=== PATIENT | male | born 1965 | race Caucasian/White ===

== ENCOUNTER 2023-09-22 17:20 | Emergency (ER) | payer OTHER, SELFPAY ==
[2023-09-22 17:25] VITALS: BP 151/79; PULSE 85; RESP 20; TEMP 37.1; O2SAT 95; BMI 45.0
== END 2023-09-22 20:25 | disposition left against medical advice (07) ==
PROVIDERS: PCP Family Medicine
DX: Z53.21 Procedure and treatment not carried out due to patient leaving prior to being seen by health care provider (principal)

== ENCOUNTER 2024-03-02 02:20 | Emergency (ER) | payer BC, SELFPAY ==
[2024-03-02] VITALS (25 sets, daily range): BP systolic 108–143; BP diastolic 65–86; PULSE 68–106; RESP 12–20; TEMP 36.5; O2SAT 92–99
--- NOTE | 2024-03-02 02:26 | ED.GENADULT ---
HPI - General Adult General Chief complaint: Arrhythmia/Palpitations Stated complaint: A-fib Time Seen by Provider: 03/02/24 02:26 History of Present Illness HPI narrative: Pt arrives with son for evaluation of Atrial Fibrillation that woke him from his sleep ~0140. Patient states that it woke him up out of his sleep. He states that he could feel his heart beat fast, have an addition beat and then slow down. Hx of Afib, not on blood thinners, in the past he has been cardioverted. Denies any chest pain and notes some mild SOB. 59-year-old man presenting to the emergency department with recurrence of atrial fibrillation. This woke him from sleep less than an hour prior to presentation. He does know quite well when he goes into atrial fibrillation. Last time appears to have been in September of this last year and spontaneously converted in our waiting room here in the emergency department ultimately was not seen. Does have a history of ablation in proximally 2005 and notes that his symptoms of chest pain with AFib have been much less since that time. Primary symptom now is lightheadedness. Sounds like is rather symptomatic even at a slower rates of atrial fibrillation. Feeling mildly lightheaded now. Does have numerous cardioversions. History also of paroxysmal supraventricular tachycardia. Was in usual state of health prior to this event. No alcohol consumption. Does have sleep apnea. Regularly uses his CPAP. No longer has a pocket pill for atrial fibrillation. Is no longer anticoagulated with a history of Coumadin. Noted on exam are well-healing surgical trocar sites-apparently correlate to prostatectomy around 3 months ago Related Data Home Medications ?Medication ?Instructions ?Recorded ?Confirmed lisinopril 20 1 tab PO DAILY 09/22/23 03/02/24 mg-hydrochlorothiazide 25 mg tablet metoprolol succinate 25 mg 25 mg PO DAILY 09/22/23 03/02/24 tablet,extended release 24 hr tadalafil 5 mg tablet 5 mg PO DAILY 03/02/24 03/02/24 Previous Rx's ?Medication ?Instructions ?Recorded apixaban 5 mg tablet (Eliquis) 5 mg PO BID #60 tabs 03/02/24 Allergies Allergy/AdvReac Type Severity Reaction Status Date / Time No Known Drug Allergies Allergy Verified 03/02/24 02:30 Review of Systems Status of ROS: Reports: 6 or more systems reviewed and unremarkable except as noted in History and below PFSH PFS Medical History Atrial fibrillation with rapid ventricular response ?I48.91 - Unspecified atrial fibrillation (ICD-10) Paroxysmal SVT (supraventricular tachycardia) ?I47.10 - Supraventricular tachycardia, unspecified (ICD-10) History of cardioversion ?Z92.89 - Personal history of other medical treatment (ICD-10) Sleep apnea ?G47.30 - Sleep apnea, unspecified (ICD-10) Umbilical hernia without obstruction and without gangrene ?K42.9 - Umbilical hernia without obstruction or gangrene (ICD-10) Spondylosis, lumbosacral ?M47.817 - Spondylosis without myelopathy or radiculopathy, lumbosacral region (ICD-10) Prostate cancer ?C61 - Malignant neoplasm of prostate (ICD-10) Prediabetes ?R73.03 - Prediabetes (ICD-10) Pneumonia due to COVID-19 virus ?U07.1 - COVID-19 (ICD-10) ?J12.82 - Pneumonia due to coronavirus disease 2019 (ICD-10) Obesity, unspecified ?E66.9 - Obesity, unspecified (ICD-10) Hyperlipidemia, mixed ?E78.2 - Mixed hyperlipidemia (ICD-10) Cervical disc displacement ?M50.20 - Other cervical disc displacement, unspecified cervical region (ICD-10) Colon polyp ?K63.5 - Polyp of colon (ICD-10) Kidney stone ?N20.0 - Calculus of kidney (ICD-10) Hypertension ?I10 - Essential (primary) hypertension (ICD-10) Atrial fibrillation ?I48.91 - Unspecified atrial fibrillation (ICD-10) Surgical History History of testicular surgery ?Z98.890 - Other specified postprocedural states (ICD-10) History of colonoscopy ?Z98.890 - Other specified postprocedural states (ICD-10) History of cervical discectomy ?Z98.890 - Other specified postprocedural states (ICD-10) History of prostatectomy ?Z90.79 - Acquired absence of other genital organ(s) (ICD-10) S/P ablation of atrial fibrillation ?Z98.890 - Other specified postprocedural states (ICD-10) ?Z86.79 - Personal history of other diseases of the circulatory system (ICD-10) Social History Smoking Status: Never smoker Second hand tobacco smoke exposure: No How often do you have a drink containing alcohol: never AUDIT-C Alcohol total score: 0 Non-prescribed substance use: denies use Exam Narrative: Exam Narrative: Pleasant. NAD. Appears little tired. Easily conversant. Breathing easily. Cranial nerves 2-12 intact. Lungs are clear. Heart is irregularly irregular and rapid. Rate on [employer] during exam around 106. Extremities are well perfused. Without edema. Abdomen is overweight. There well-healing surgical trocar sites. Soft noninflamed umbilical hernia as well. Const: Vital Signs, click to edit/add: Vital Signs - 24 hr 03/02/24 02:30 03/02/24 02:33 03/02/24 02:35 Temperature 97.7 F Pulse Rate 94 Pulse Rate [Pulse Oximeter] 106 H Respiratory Rate 12 20 Blood Pressure 138/82 Blood Pressure [Ri ght Upper Arm] 138/82 Pulse Oximetry 97 96 96 Oxygen Delivery Me thod Room Air Oxygen Flow Rate 03/02/24 02:46 03/02/24 03:01 03/02/24 03:17 Temperature Pulse Rate 75 72 68 Pulse Rate [Pulse Oximeter] Respiratory Rate 20 20 20 Blood Pressure 111/73 116/85 143/82 H Blood Pressure [Ri ght Upper Arm] Pulse Oximetry 93 93 95 Oxygen Delivery Me thod Oxygen Flow Rate 03/02/24 03:31 03/02/24 03:46 03/02/24 04:01 Temperature Pulse Rate 70 74 80 Pulse Rate [Pulse Oximeter] Respiratory Rate 18 18 18 Blood Pressure 126/77 126/83 126/79 Blood Pressure [Ri ght Upper Arm] Pulse Oximetry 95 94 94 Oxygen Delivery Me thod Oxygen Flow Rate 03/02/24 04:16 03/02/24 04:31 03/02/24 04:44 Temperature Pulse Rate 94 79 81 Pulse Rate [Pulse Oximeter] Respiratory Rate 20 18 18 Blood Pressure 125/84 108/72 119/86 Blood Pressure [Ri ght Upper Arm] Pulse Oximetry 92 95 98 Oxygen Delivery Me thod Oxygen Flow Rate 03/02/24 04:46 05/31/24 04:51 03/02/24 04:57 Temperature Pulse Rate 81 79 78 Pulse Rate [Pulse Oximeter] Respiratory Rate 20 17 14 Blood Pressure 132/78 126/81 117/77 Blood Pressure [Ri ght Upper Arm] Pulse Oximetry 97 97 97 Oxygen Delivery Me thod Oxygen Flow Rate 03/02/24 04:58 03/02/24 05:02 03/02/24 05:07 Temperature Pulse Rate 77 76 Pulse Rate [Pulse Oximeter] Respiratory Rate 16 18 Blood Pressure 110/66 110/69 Blood Pressure [Ri ght Upper Arm] Pulse Oximetry 99 96 97 Oxygen Delivery Me thod Nasal Cannula Oxygen Flow Rate 2 03/02/24 05:12 03/02/24 05:17 03/02/24 05:22 Temperature Pulse Rate 76 75 77 Pulse Rate [Pulse Oximeter] Respiratory Rate 18 18 18 Blood Pressure 120/66 116/65 114/70 Blood Pressure [Ri ght Upper Arm] Pulse Oximetry 96 95 96 Oxygen Delivery Me thod Oxygen Flow Rate 03/02/24 05:27 03/02/24 05:32 Temperature Pulse Rate 77 75 Pulse Rate [Pulse Oximeter] Respiratory Rate 18 18 Blood Pressure 113/69 122/75 Blood Pressure [Ri ght Upper Arm] Pulse Oximetry 95 96 Oxygen Delivery Me thod Oxygen Flow Rate Documenting provider has reviewed patient's vital signs: yes Course Vital Signs Vital signs: Initial Vital Signs Temperature 97.7 F 03/02/24 02:30 Temperature Source Temporal Artery Scan 03/02/24 02:30 Pulse Rate 106 H 03/02/24 02:30 Pulse Rhythm Irregular 03/02/24 02:30 Respiratory Rate 12 03/02/24 02:30 Blood Pressure 138/82 03/02/24 02:30 Blood Pressure Mean 100 03/02/24 02:30 Blood Pressure Position Sitting 03/02/24 02:30 Pulse Oximetry 97 03/02/24 02:30 Oxygen Delivery Method Room Air 03/02/24 02:30 Vital Signs Temperature 97.7 F 03/02/24 02:30 Pulse Rate 106 H 03/02/24 02:30 Respiratory Rate 12 03/02/24 02:30 Blood Pressure 138/82 03/02/24 02:30 Pulse Oximetry 97 03/02/24 02:30 Oxygen Delivery Method Room Air 03/02/24 02:30 Temperature 97.7 F 03/02/24 02:30 Pulse Rate 75 03/02/24 05:32 Respiratory Rate 18 03/02/24 05:32 Blood Pressure 122/75 03/02/24 05:32 Pulse Oximetry 96 03/02/24 05:32 Oxygen Delivery Method Nasal Cannula 03/02/24 04:58 Oxygen Flow Rate 2 03/02/24 04:58 Medications Administered Medications: Generic Name Dose Route Start Last Admin Trade Name Freq PRN Reason Stop Dose Admin Apixaban 5 mg 03/02/24 05:45 03/02/24 05:51 Apixaban 5 Mg Tablet PO 03/02/24 05:46 5 mg ONCE ONE Administration Discontinued Medications Generic Name Dose Route Start Last Admin Trade Name Freq PRN Reason Stop Dose Admin Diltiazem HCl 20 mg 03/02/24 02:38 03/02/24 02:45 Diltiazem 5 Mg/Ml Inj IVP 03/02/24 02:39 20 mg ONCE ONE Administration Sodium Chloride 1,000 mls @ 1,000 mls/hr 03/02/24 02:38 03/02/24 03:42 0.9 % Sodium Chloride 1000 Ml IV 03/02/24 03:37 Infused .Q1H ONE Infusion Medical Decision Making MDM Narrative Medical decision making narrative: Long history of atrial fibrillation, paroxysmal. Does appear to be in same. No isolated precipitating factors. Chads Vasc 2 score would be 1. Does seem to know very clearly when he is in atrial fibrillation and when not. Would appear to be safe for cardioversion from this standpoint at least. He is symptomatic and so would recommend cardioversion. Does have a history of hypomagnesemia as well as hyperkalemia. Check electrolytes proceed from there. IV hydration and 20 mg of diltiazem. If does not convert then will proceed with electrical cardioversion. Labs are reviewed. Monitor on [employer]. No change in status. Request anesthesia assistance for cardioversion. They assisted sedated with 100 mg of propofol fall mixed with 40 mg of lidocaine. He did tolerate this procedure quite well. See procedural note. Return to normal sinus rhythm I did place a call to Cardiology to discuss anticoagulation. Indeed recommendations as I discussed with Mr. Sol are to be at least temporarily anticoagulated with Eliquis. In his work he works with [employer]. Might need to wear gloves just due to numerous small cuts he gets on his hands. Also be trying to arrange for echocardiogram. Given dose of Eliquis here prior to departure. Already has a follow-up with Cardiology scheduled for April 02. Would anticipate another visit with electrophysiology. See patient discharge plan for further discussion/plan Medical Records Medical records reviewed: Yes I reviewed the patient's medical records Lab Data Labs: Lab Results 03/02/24 Range/Units 02:35 WBC 8.71 (4.50-11.00) K/uL RBC 5.74 (4.30-5.90) m/uL Hgb 15.8 (13.5-17.5) gm/dL Hct 47.6 (37.0-53.0) % MCV 83 (80-100) fL MCH 28 (26-34) pg MCHC 33 (32-36) gm/dL RDW Coeff of Susie 13.6 (11.5-15.5) % Plt Count 255 (140-440) K/uL Neut % (Auto) 57.5 (42.0-72.0) % Lymph % (Auto) 28.2 (20-44) % Sully % (Auto) 10.1 (0.0-11.0) % Eos % (Auto) 3.2 (0.0-7.0) % Baso % (Auto) 0.8 (0.0-3.0) % Neut # (Auto) 5.00 (1.7-7.0) K/uL Lymph # (Auto) 2.46 (0.90-2.90) K/uL Sully # (Auto) 0.90 (0.00-0.90) K/UL Eos # (Auto) 0.28 (0.00-0.50) K/uL Baso # (Auto) 0.07 (0.00-0.30) K/uL Abs Immat Gran (auto) 0.02 (0.00-0.30) K/uL Imm/Tot Granulo (auto) 0.2 % Sodium 142 (135-149) mmol/L Potassium 3.3 L (3.6-5.1) mmol/L Chloride 109 (96-114) mmol/L Carbon Dioxide 25 (20-32) mmol/L Anion Gap 8 (7-15) mEq/L BUN 23 (7-30) mg/dL Creatinine 0.8 (0.5-1.5) mg/dL Estimated GFR 103 ml/min Glucose 134 H (60-115) mg/dL Calcium 9.2 (8.4-10.6) mg/dL Magnesium 2.2 (1.5-2.6) mg/dL ECG Data Attestation: I personally reviewed and interpreted this ECG as follows: (EKG 1. Atrial fibrillation with right bundle branch block. Rate of 98. Does appear similar to prior. EKG 2. After cardioversion shows normal sinus rhythm with right bundle-branch block. Rate of 81.) Critical Care Time Critical Care Time Critical Care Time: Yes Attestation: The patient required my highest level preparedness to intervene emergently and I personally spent this critical care time directly and personally managing the patient. This critical care time included: Obtaining a history; Examining the patient; Pulse oximetry; Ordering and reviewing of studies; Arranging urgent treatment with development of a management plan; Evaluation of patients response to treatment; Frequent reassessment discussions with other providers. This critical care time was performed to assess and manage the high probability of imminent life-threatening deterioration that could result in multiorgan failure. It was exclusive of separate billable procedures and treating other patients and teaching time. Total Critical Care Time in Minutes: 60 Discharge Plan Discharge Clinical Impression: Paroxysmal atrial fibrillation, Atrial fibrillation with RVR Patient Disposition: Home w/ Parent or Adult Condition: Improved Additional Instructions: Stay well-hydrated. Continue to try for regular and quality sleep. Anticipate taking this apixaban/Eliquis until cardiology follow-up. Continue taking your metoprolol succinate as you have been. Consider doubling your magnesium over the next 2 weeks. 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 Return as needed. Pleasure talking with you today. Prescriptions: New Eliquis 5 mg tablet 5 mg PO BID Qty: 60 1RF No Action lisinopril-hydrochlorothiazide 20-25 mg tablet 1 tab PO DAILY metoprolol succinate 25 mg tablet extended release 24 hr 25 mg PO DAILY tadalafil 5 mg tablet 5 mg PO DAILY Follow Up/Referrals: Abner Tapia MD [Referring] - Stand Alone Forms: Client Outlookth Info Instructions Procedures Additional Procedures Procedure name: Electrical cardioversion Pre procedure diagnosis: Paroxysma Atrial fibrillation with rapid ventricular response, symptomatic Post procedure diagnosis: Paroxysma Atrial fibrillation with rapid ventricular response, symptomatic Written consent by: patient Site marking: not applicable Verification/time out: correct patient and correct procedure Estimated blood loss (if any): none Conclusion: patient tolerated procedure
[2024-03-02] MEDS: dilTIAZem 5 MG/ML inj 20 MG IVP (02:45)
[2024-03-02 02:46] LABS: Basophils Absolute Auto 0.07 K/uL (0.00-0.30); Basophils Percent Auto 0.8 % (0.0-3.0); Eosinophils Absolute Auto 0.28 K/uL (0.00-0.50); Eosinophils Percent Auto 3.2 % (0.0-7.0); Hematocrit 47.6 % (37.0-53.0); Hemoglobin* 15.8 gm/dL (13.5-17.5); Immature Granulocytes Abs Auto 0.02 K/uL (0.00-0.30); Immature Granulocytes Pct Auto 0.2 %; Lymphocytes Absolute Auto 2.46 K/uL (0.90-2.90); Lymphocytes Percent Auto 28.2 % (20-44); Mean Corpuscular HGB Conc 33 gm/dL (32-36); Mean Corpuscular Hemoglobin 28 pg (26-34); Mean Corpuscular Volume 83 fL (80-100); Monocytes Percent Auto 10.1 % (0.0-11.0); Neutrophils Percent Auto 57.5 % (42.0-72.0); Platelet Count* 255 K/uL (140-440); RDW Coefficient of Variation % 13.6 % (11.5-15.5); Red Blood Count 5.74 m/uL (4.30-5.90); Slide Review Reflex No; White Blood Count* 8.71 K/uL (4.50-11.00)
[2024-03-02] MEDS: 0.9 % SODIUM CHLORIDE 1000 ml 1,000 ML IV (02:46)
--- OUTSIDE RECORDS SUMMARY | 2024-03-02 02:50 | XMS_ITS | Clinical Summary ---
Author Organization [employer] [facility] [employer] Address [place], [place] [address] Care Team Providers Care Manager Home Name Role Phone Glo Slaughter Primary Care Provider [phone]- [phone] Allergies No known active allergies Medications Medication Sig Dispensed Refills Start Date End Date Status magnesium 250 mg Tab Take 1 tablet by mouth once daily. 0 12/23/2011 Active CPAPIndications:OS A (obstructive sleep apnea) CPAP machine for home use at pressure: 5-13 cmw , Heated humidifier x 1 q 5 yr, Humidifier chamber x 1 q 6 mo, nasal mask x1 q 3mos, with cushion x 2 q mo, Heated tubing x 1 q 3 mo, Headgear x 1 q 6 mo, Filters: Disposable x 2 q mo non-disposable filters x1 q 6mo, Length of Need: 99 months, Frequency of use: Daily 1 Each 11 02/02/2022 Active acetaminophen (TYLENOL EXTRA STRGTH) 500 mg tablet Take 1,000 mg by mouth every 6 hours if needed. Max acetaminophen dose: 4000mg in 24 hrs. Active Lactobacillus acidophilus (PROBIOTIC ORAL) Take by mouth once daily. Active docusate (COLACE) 100 mg capsuleIndications :Prostate cancer (HC) Take 1 Capsule (100 mg) by mouth two times daily. 30 Capsule 09/17/2023 Active oxybutynin (DITROPAN) 5 mg tabletIndications: Bladder spasms Take 1 Tablet (5 mg) by mouth three times daily. 15 Tablet 09/24/2023 Active lisinopriL (PRINIVIL; ZESTRIL) 20 mg tabletIndications: HTN (hypertension) Take 1 Tablet (20 mg) by mouth once daily. 90 Tablet 3 10/14/2023 Active metoprolol tartrate (LOPRESSOR) 50 mg tabletIndications: HTN (hypertension) Take 1 Tablet (50 mg) by mouth two times daily. 180 Tablet 3 10/14/2023 Active Active Problems Problem Noted Date Diagnosed Date Paroxysmal SVT (supraventricular tachycardia) HTN (hypertension) 10/17/2023 Prostate cancer 10/17/2023 Prediabetes 05/06/2023 Umbilical hernia without obstruction and without gangrene 05/05/2023 Colon polyp 01/17/2012 Overview: Colonoscopy 01/2012 hyperplastic polyp repeat in 10 years Impaired fasting glucose 10/06/2010 Lateral L1-2 Disk Fragment 05/14/2010 Spondylosis, lumbosacral 05/13/2010 Overview: L1-2 Kidney stone 10/24/2009 Displacement of cervical int ervertebral disc without myelopathy 04/12/2008 ATRIAL FIBRILLATION W/ RVR Overview: History of PAFwith multiple chemical and electrical cardioversions Hx intolerance to b-blockers d/t somnilence s/p catheter-based afib ablation 10/13/2005 w/ Dr. Lomeli ASA discontinued 08/05/06 No recurrence afib s/p ablation until 08/08/06 pm - associated chest pressure and sob with afib and RVR OBSTRUCTIVE SLEEP APNEA Overview: diagnosed 2004 but not treated at this point (08/2006) Seasonal allergic rhinitis due to pollen HYPERLIPIDEMIA MIXED Obesity, unspecified Unspecified essential hypertension Resolved Problems Problem Noted Date Diagnosed Date Resolved Date Paroxysmal atrial fibrillation 07/04/2015 05/07/2023 Encounters Date Type Department Care Team Description 12/22/2023 4:20 PM CDT [address] [id number] Lab, [facility] 12/22/2023 Travel 12/05/2023 [address] Only [address] [phone] Joe Vargas MD Outside Order (Order Date: 10/04/2023, Aleja... from Last 3 Months Immunizations Name Administration Dates Next Due AMB INFLUENZA, IIV4 (AGE=>6M OS) MDV (Flu Clinic Only) 07/04/2019 Influenza, IIV3 (Age 6-35 mos) 08/10/2017 Influenza, IIV3 (Age >=3 years) 07/03/20 20,07/03/2018,07/03/2017,07/30/20 14,07/25/2012,07/08/2011,07/09/2010 Influenza, IIV4 07/12/2018 Influenza, IIV4 (=>6mos) MDV 07/15/2016 Influenza,CCIIV4 PRESERV FREE 07/02/2020, 019 Td (Age >=7 Years) 05/08/2004 Tdap 05/05/2023,05/29/2013 Family History Medical History Relation Name Comments Hypertension Father b 1944 Other Father back problem Thyroid Disease Father benign parat hyroid tumor Cancer Maternal Aunt liver Arthritis Mother b 1946 Other Mother diverticulitis Cancer-colon Paternal Grandfather Other Sister depression Relation Name Status Comments Father Maternal Aunt Mother Paternal Grandfather Sister Social History Tobacco Use Types Packs/Day Years Used Date Smoking Tobacco: Never Smokeless Tobacco: Never Tobacco Cessation:Counseling Given: Yes Alcohol Use Standard Drinks/Week Comments No 0 (1 standard drink = 0.6 oz pur e alcohol) PHQ-2 Answer Date Recorded PHQ-2 TOTAL SCORE 0 05/05/2023 Social Connections Answer Date Recorded Frequency of Communication with Friends and Fami ly 0 09/01/2023 Financial Resource Strain Answer Date R ecorded Difficulty of Paying Living Expenses 3 09/01/2023 Difficulty of Paying Living Expenses Not on file 09/01/2023 Food Insecurity Answer Date Recorded Worried About Running Out of Food in the Last Ye ar 1 09/01/2023 Transportation Needs Answer Date Record ed Lack of Transportation (Medical) 1 09/01/2023 Housing Stability Answer Date Recorded Unable to Pay for Housing in the Last Year 1 09/01/2023 Sex and Gender Information Value Date Recorded Sex Assigned at Not on file Gender Identity Not on file Sexual Orientation Straight 12/30/2021 7: 33 AM CDT Obstetrics History Last Filed Vital Signs Vital Sign Reading Time Taken Comments Blood Pressure 151/97 10/14/2023 8:22 AM GRANULATOR OPERATOR Pulse 93 10/14/2023 8:22 AM GRANULATOR OPERATOR Temperature 37.1 ??C (98.7 ??F) 09/24/2023 1:34 PM CS T Respiratory Rate 18 09/24/2023 1:34 PM GRANULATOR OPERATOR Oxygen Saturation 96% 10/14/2023 8:22 AM GRANULATOR OPERATOR Inhaled Oxygen Concentration - - Weight 139.7 kg (308 lb) 10/14/2023 8:22 AM GRANULATOR OPERATOR Height 175.3 cm (5' 9) 09/24/2023 1:40 PM GRANULATOR OPERATOR Body Mass Index 45.48 09/24/2023 1:40 PM GRANULATOR OPERATOR Plan of Treatment Upcoming Encounters Date Type Department Care Team (Late st Contact Info) Description 04/02/2024 1:00 PM CDT Office Visit [facility] [address] [facility] [address] [place] [id number] Tam Lomeli MD [id number] [place] [address] Health Maintenance Due Date Last Done Comments Zoster (shingles) series for age 50+ (1 of 2) 02/26/2016 COVID-19 vaccine series (2022-24 season) 2023 Depression screening for age 12+ 05/05/2024 05/05/2023, 04/06/2022, 04/06/2022, Additional history exists Influenza for age 50-64 06/03/2024 07/03/20 20, 07/02/2020, 07/04/2019, Additional history exists BMI (ht and wt on same day) for age 18+ 09/01/2024 09/01/2023, 07/01/2021, 02/05/2021, Additional history exists Lipids for age 45-75 05/05/2028 05/05/2023, 04/06/2022, 12/17/2019, Additional history exists Colonoscopy through age 75 06/24/203206/24, 06/23/2022, 06/23/2022, Additional history exists Tetanus booster 05/05/2033 05/05/2023, 05/04, 05/08/2004 HIV for age 15-65 Completed 05/05/2023 Hepatitis C screening for age 18-79 Completed 05/05/2023 Tdap Completed 05/05/2023, 05/29/2013 Pneumococcal series for age 6-64 Aged Out No longer eligible based on patient's age to complete this topic Procedures Procedure Name Priority Date/Time Associated Diagnosis Comments PSA TOTAL (DIAGNOSTIC) Routine 12/22/2023 4:15 PM CDT Personal history of malignant neoplasm of prostate LC HIV-1/O/2, 4TH GENERATION Routine 05/05/2023 3:16 PM CDT Screening for HIV (human immunodeficiency virus) LC HCV ANTIBODY RFX TO QUANT PCR Routine 05/05/2023 3:16 PM CDT Need for hepatitis C screening test LIPID PANEL W REFLEX MEASURED LDL Routine 05/05/2023 3:16 PM CDT Mixed hyperlipidemia COLONOSCOPY SCREENING Routine 06/23/2022 7:51 AM CDT Screening for colon cancer from Last 3 Months or Most Recently Relevant to Health Maintenance Results * PSA TOTAL (DIAGNOSTIC) (12/22/2023 4:15 PM CDT) PSA TOTAL (DIAGNOSTIC) <0.02 <4.00 ng/mL 12/23/2023 1:43 PM CDT [facility] Blood BLOOD SPECIMEN / Unknown Venipuncture / Unknown 12/22/2023 4:15 PM CDT 12/22/2023 4:15 PM CDT [facility] - 12/23/2023 1:43 PM CDT The test method changed on 03/29/2023. If this test has been used for serial monitoring, rebaselining is recommended. Rebaselining consists of 2 measurements, collected 3-6 weeks apart. The Chele Elecsys total PSA assay is an electrochemiluminescence immunoassay ECLIA performed on the Chele Ildefonso e immunoassay analyzers. Values obtained with different assay methods may be different and cannot be used interchangeably. Joe Joseph Sam MD CHEMISTRY [facility] [address] [place] [address], * LC HCV ANTIBODY RFX TO QUANT PCR (05/05/2023 3:16 PM CDT) HCV Ab Non Reactive Non Reactive 05/08/2023 7:[address] [facility] ([facility]) Blood BLOOD SPECIMEN / Unknown Venipuncture / Unknown 05/05/2023 3:16 PM CDT 05/05/2023 3:17 PM CDT Narrative [facility] ([facility]) - 05/08/2023 7:07 AM CDT Performed at: ??[address] ??[id number] Dairy Husbandman: Will Bautista MD, Phone: ??[phone] [facility] Performing Organization Address [facility] Co de Phone Number [facility] (CET) [address] [place] [address], * LC HIV-1/O/2, 4TH GENERATION (05/05/2023 3:16 PM CDT) Pathologist [facility] HIV Scr 4th Gen Non Reactive Non Reactive 05/08/2023 7:07 AM CDT [facility] ([facility]) Comment: HIV Negative HIV-1/HIV-2 antibodies and HIV-1 p24 antigen were NOT detected. There is no laboratory evidence of HIV infection. Blood BLOOD SPECIMEN / Unknown Venipuncture / Unknown 05/05/2023 3:16 PM CDT 05/05/2023 3:17 PM CDT Narrative [facility] ([facility]) - 05/08/2023 7:07 AM CDT Performed at: ??[address] ??[id number] Dairy Husbandman: Will Bautista MD, Phone: ??[phone] [facility] (CET) [facility] [id number], * (ABNORMAL) LIPID PANEL W REFLEX MEASURED LDL (05/05/2023 3:16 PM CDT) CHOLESTEROL,TOTAL 203(H) 100 - 199 mg/dL 05/06/2023 1:21 AM CDT [facility] [employer] [facility] Comment: Cholesterol, Total Reference Ranges Desirable <200 mg/dL Borderline 200-239 mg/dL High >=240 mg/dL TRIGLYCERIDES 254(H) <150 mg/dL 05/06/2023 1:21 AM CDT [facility] HDL CHOLESTEROL 31(L) >40 mg/dL 1:21 AM CDT [facility] NON-HDL CHOLESTEROL 172(H) <145 mg/dl 05/06/2023 1:21 AM CDT [facility] CHOL/HDL RATIO 6.55(H) <4.50 05/06/2023 1:21 AM CDT [facility] LDL CHOLESTEROL 121 <=130 mg/dL 05/06/2023 1:21 AM CDT [facility] VLDL CHOLESTEROL 51(H) <=30 mg/dL 05/06/2023 1:21 AM CDT [facility] PROVIDER ORDERED STATUS RANDOM 05/06/2023 1:21 AM CDT [facility] Blood BLOOD SPECIMEN / Unknown Venipuncture / Unknown 05/05/2023 3:16 PM CDT 05/05/2023 3:17 PM CDT [facility] [address] [place] [address], [place] * COLONOSCOPY (06/23/2022 7:37 AM CDT) 06/23/2022 7:37 AM CDT Narrative Transcriptions Willard Matos MD - 06/23/2022 8:54 AM CDT Patient Name: Henok Sol Procedure Date: 06/23/2022 Gender: Male Date of : 1965 Admit Type: Outpatient Procedure: Colonoscopy Proceduralist: Willard Matos MD , Josefina Mendoza (Nurse), Aaliyah Gaona (Nurse) Referring MD: Abner Tapia Indications/Pre-Op Diagnosis: Screening for colorectal malignant neoplasm, Last colonoscopy: January 2012 Medications: Fentanyl 100 micrograms IV, Midazolam 2 mgIV, The level of sedation administered wasmoderate Procedure Description: The patient had risks, benefits and alternatives explained to andgave informed consent. The patient had a stable cardiopulmonary status and judged an adequate candidate for conscious sedation. The Colonoscope was passed through the anus and advanced to thececum, identified by appendiceal orifice and ileocecal valve. Thecolonoscopy was performed without difficulty. The patient tolerated the procedure well. The quality of the bowel preparation was good. Anatomical landmarks were photographed. Complications: No immediate complications. Estimated Blood Loss & Specimen: Estimated blood loss: none. Specimen collected - None Findings: The perianal and digital rectal examinations were normal. A few small-mouthed diverticula were found in the sigmoid colon. The exam was otherwise without abnormality. Impressions/Post-Op Diagnosis: - Diverticulosis in the sigmoid colon. - The examination was otherwise normal. - No specimens collected. Recommendation: - Patient has a contact number available for emergencies. The signsand symptoms of potential delayed complications were discussed with the patient. Return to normal activities tomorrow. Written discharge instructions were provided to the patient. - Resume previous diet. - Continue present medications. - Repeat colonoscopy in 10 years for screening purposes. Moderate Sedation: A time out was performed before the procedure. Moderate (conscious) sedation was administered by the endoscopy nurse and supervised bythe endoscopist. The following parameters were monitored: oxygensaturation, heart rate, blood pressure, EKG, CO2, respiratory rate, adequacy of pulmonary ventilation and reponse to care. Please refer to the patient's medical record flowsheets and nursing notes for moderate sedation details. Total physician intraservice time was 15 minutes. Willard Matos MD 06/23/2022 8:54:48 AM This report has been signed electronically. Note Initiated On: 06/23/2022 7:37 AM Procedure Code(s): --- Professional --- 06768, Colonoscopy, flexible; diagnostic, including collection of specimen(s) bybrushing or washing, when performed (separateprocedure) Diagnosis Code(s): --- Professional --- Z12.11, Encounter for screening formalignant neoplasm of colon K57.30, Diverticulosis of large intestine without perforation or abscess withoutbleeding CPT copyright 2020 [employer]. All rights reserved. The codes documented in this report are preliminary and upon gas pumper reviewmay be revised to meet current compliance requirements. Scope In: 8:35:54 AM Scope Withdrawal Time 0 hours 7 minutes 43 seconds Scope Out: 8:48:27 AM Willard Matos MD PROCEDURE ORD from Last 3 Months or Most Recently Relevant to Health Maintenance Advance Directives Documents on File Type Date Recorded Patient Cleaning Attendant Expl anation Healthcare Directive 08/02/2023 023 * Full Code (Latest Code Status on File) Date Activated Date Inactivated Comments 09/16/2023 8:03 AM 09/17/2023 3:45 PM Question Answer Comments Code Status Discussion: Unable to Assess Preferences, Provider to review later * Full Code Date Activated Date Inactivated Comments 06/21/2015 11:28 PM 06/22/2015 2:00 PM * Full Code Date Activated Date Inactivated Comments 05/28/2008 11:34 AM 05/29/2008 1:24 PM * Full Code Date Activated Date Inactivated Comments 08/09/2006 4:19 PM 08/10/2006 8:33 PM * Full Code Date Activated Date Inactivated Comments 08/09/2006 3:14 PM 08/09/2006 4:19 PM Care Teams Manager Home Relationship Specialty Start Date End Date Glo Slaughter PA [address] [facility] [id number] PCP - General Physician Efficiency Expert 05/07/23
--- OUTSIDE RECORDS SUMMARY | 2024-03-02 02:50 | XMS_ITS | Continuity of Care Document ---
Author Organization MD - [facility], [facility] Address [address] [place] [phone] Care Team Providers Care Paper Finisher Name Role Phone ISRRAEL BROWN Primary Care Provider [phone] Assessment Encounter Date Assessment Date Assessment LastModified by Organization Details LastModified Time 12/26/2023 12/26/2023 58 year old male with history of prostate cancer who is now s/p radical prostatectomy with Dr. Freeman on 09/16/2023 nick Not available 12/26/2023 15:33:32 Plan of Treatment Reminders Order Date Submit Date Provider Last Modified By Organization Details Last Modified Time Details Appointments ESTABL ISHED VIDEO VISIT 20 2023 03:00P DUY Che Not available Not available Not available Lab PSA, total, serum or plasma 2023 024 nick [facility], [address] [place], [address], 12/26/2023 15:37:55 PSA, total, serum or plasma 2023 024 nick [facility], [address] [place], [address], 12/26/2023 15:37:54 Referral pelvic floor therap y referr al 2023 024 [email or web address] Not available 01/24/2024 10:33:31 Procedures None record ed. Surgeries None record ed. Imaging None record ed. Medication Orders tadala floresita 5 mg tablet 2023 024 [id number], [address] , [place], [place], [id number], 12/26/2023 15:44:49 Patient TargetsNo targets recorded. Patient Instructions Encounter Date Encounter Id Patient Instructions Last Modified By Organization Details Last Modified Time 12/26/2023 [id number] Prostate cancer: - Will check is PSA again in 3 months, and then again at his year anniversary with a visit at that time Incontinence: - Pelvic floor PT sent over Erectile dysfunction: - New RX for tadalafil sent to pharmacy. Side effects of phosphodiesteras e-5 inhibitors were discussed in detail. Potential side effects include headache, facial flushing, heartburn, nasal congestion, visual changes, myalgia and light headedness. nick Not available 12/26/2023 15:35:56 Reason for Referral PLEASE CONTACT PATIENT TO [facility] AN APPOINTMENT WITH DR PAVON FOR IMRT Referring Physician: Alistair Freeman Urology, Encounter Date: 06/20/2023 Pelvic Floor Therapy Referra l for Male urinary stress incontinence Urinary incontinence s/p prostatectomy Discipline: physical therapy / Please call patient to schedule Pelvic Floor Physical Therapy. Thank you Referring Physician: Darrion Kirby, Urology, Encounter Date: 11/18/2023 Pelvic Floor Therapy Referra l for Male urinary stress incontinence Referring Physician: Mari Adhikari Urology, Encounter Date: 12/26/2023 Problems Name Status Onset Date Resolution Date Notes Provider Name and Address Organization Details Recorded Time Essential hypertension Active Gou Torito wilkins [facility] 11/18/2023 14:53:57 Problem Notes None recorded. Procedures Surgical History Date Name Laterality Status Provider Name and Address Organization Details Recorded Time 09/27/20 23 Catheter Removal completed Rosy wilkins [facility] 09/27/2023 12:11:48 06/13/20 23 Prostate Biopsy Procedure completed Alistair Freeman MD [address] [place] [address],[address], [place], [address], [facility] 06/16/2023 15:24:42 06/13/20 23 URONAV completed Alistair Freeman MD [address], [place], [address], [facility] 06/16/2023 15:24:47 06/13/20 23 Rocephin/Ceftri axone completed Harrison Kang franky [facility] 06/13/2023 14:05:53 06/13/20 23 Blood Draw/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 Procedure Notes None recorded. Medical Equipment None Reported. Allergies No known drug allergies Medications Name Sig Start Date Stop Date Status Note LastModified by Organization Details LastModified Time oxybutyni n chloride ER 10 mg tablet,ex tended release 24 hr 10/04 completed HN: Patient reports no longer taking Not Available Not Available Not Available lisinopri l 20 mg tablet active Not Available Not Available Not Available oxycodone -acetamin ophen 5 mg-325 mg tablet TAKE 1 TABLET BY MOUTH EVERY 6 HOURS 10/04 completed HN: Patient reports no longer taking Not Available Not Available Not Available ceftriaxo ne 1 gram solution for injection Take 1 g by injectio n route. 10/04 completed HN: Patient reports no longer taking Not Available Not Available Not Available cephalexi n 500 mg capsule TAKE ONE CAPSULE BY MOUTH THREE TIMES DAILY FOR 5 DAYS 11/18 completed Not Available Not Available Not Available metoprolo l tartrate 50 mg tablet active Not Available Not Available Not Available lisinopri l 20 mg-hydroc hlorothia zide 25 mg tablet TAKE 1 TABLET BY MOUTH EVERY DAY 12/25 completed Not Available Not Available Not Available metoprolo l succinate ER 25 mg tablet,ex tended release 24 hr 12/25 completed Not Available Not Available Not Available oxybutyni n chloride 5 mg tablet 10/04 completed HN: Patient reports no longer taking Not Available Not Available Not Available oxycodone 5 mg tablet 10/04 completed HN: Patient reports no longer taking Not Available Not Available Not Available tadalafil 5 mg tablet TAKE 1 TABLET BY MOUTH EVERY DAY active Not Available Not Available No t Available magnesium oxide 250mg 1/day active Not Available Not Available No t Available peg 3350-elec trolytes 236 gram-22.7 4 gram-6.74 gram-5.86 gram solution 10/04 completed HN: Patient reports no longer taking Not Available Not Available Not Available Probiotic 33mg 1/day active Not Available Not Available No t Available Vitals Date Recorded Body height Provider Name an d Address Organization Details Last Updated DateTime 12/26/2023 177.8 cm Bebe Smith [place] [facility] 12/26/2023 15:10:58 Social History Question Answer Notes LastModified by Organizat ion Details LastModified Time Tobacco Smoking Status Never Smoker Not Available Health Note 09/30/2023 15:33:50 What Is Your Level Of Alcohol Consumption? None Information not available 10/04/2023 What Is Your Level Of Caffeine Consumption? Occasional Information not available 06/13/2023 How Much Tobacco Do You Chew? None [email or web address] Information not available 09/30/2023 Do You Or Have You Ever Used E-cigarettes Or Vape? Never Used Electronic Cigarettes [email or web address] Information not available 09/30/2023 What Was The Date Of Your Most Recent Tobacco Screening? 12/26/2023 Information not available 12/26/2023 What Is Your Relationship Status? Single [email or web address] Information not available 09/30/2023 Do You Or Have You Ever Used Smokeless Tobacco? Never Used Smokeless Tobacco [email or web address] Information not available 09/30/2023 Do You Use Any Illicit Or Recreational Drugs? No Information not available 06/13/2023 Has Tobacco Cessation Counseling Been Provided? Yes Information not available 12/26/2023 On What Date Was Tobacco Cessation Counseling Provided? 12/26/2023 Information not available 12/26/2023 Do You Or Have You Ever Used Any Other Forms Of Tobacco Or Nicotine? No Information not available 06/13/2023 Sex: Male Functional Status None recorded. Mental Status None recorded. Family History Relationship Description Onset Age of this Age Resolved Age Notes Father No current problems or disability Mother No current problems or disability Medical History Condition Response Sexually Transmitted Infection N Diabetes N Other N Bleeding Disorder N High Blood Pressure Y Kidney Stones N High Cholesterol N GERD/Acid Reflux N Heart Disease N Cancer N Depression N Lung Disease N Immunizations Vaccine Type Date Status Provider Name and Address Organization Details Recorded Time influenza, injectable, quadrivalent 07/15/2016 completed Kanu Burgosud franky [facility] 06/13/2023 15:27:22 Influenza, injectable, MDCK, preservative free, quadrivalent 07/02/2020 completed Kanu wilkins [facility] 06/13/2023 15:27:22 Influenza, injectable, MDCK, preservative free, quadrivalent 07/04/2019 completed Kanu wilkins [facility] 06/13/2023 15:27:22 Tdap 05/05/2023 completed Kanu wilkins [facility] 06/13/2023 15:27:22 [facility]dap 05/29/2013 [facility] 15:27:22 Influenza, seasonal, injectable 07/03/2017 completed Kanu wilkins [facility] 06/13/2023 15:27:22 Influenza, seasonal, injectable 07/03/2018 completed Kanu wilkins [facility] 06/13/2023 15:27:22 Influenza, seasonal, injectable 07/08/2011 completed Kanu wilkins [facility] 06/13/2023 15:27:22 Influenza, seasonal, injectable 07/09/2010 [facility] 15:27:22 Influenza, seasonal, injectable 07/25/2012 [facility] 15:27:22 Influenza, seasonal, injectable 07/30/2014 completed Kanu wilkins [facility] 06/13/2023 15:27:22 Influenza, seasonal, injectable, preservative free 08/10/2017 completed Kanu wilkins [facility] 06/13/2023 15:27:22 Td (adult), 2 Lf tetanus toxoid, preservative free, adsorbed 05/08/2004 completed Kanu wilkins [facility] 06/13/2023 15:27:22 influenza, injectable, quadrivalent, preservative free 07/12/2018 completed Kanu wilkins [facility] 06/13/2023 15:27:22 Past Encounters Encounter ID Performer Location Encounter Start Date Encounter Closed Date Diagnosis/Indication Diagnosis SNOMED-CT Code [id number] ART Ranadll_Woo d[facility] [address] [place] [address],[facility] e [address] [place] [phone] 12/26/2023 15:09:44 12/26/2023 15:48:00 Erectile dysfunction following radical prostatectomy [id number] Male urina ry stress incontinence [id number] History of malignant neoplasm of prostate [id number] Health Concerns Section Related Observation LastModified by Organization Detai ls LastModified Time None Recorded Concern Status LastModified by Organization Details LastModified Time None Recorded Payers Encounter Date Sequence Insurance Name Policy Number Policy Garcia Covered Member ID Garcia Member ID Guarantor Name 12/26/2023 1 [place] ASHLEY ROSEBS ([place]O) [id number] 2 Henok Sol [id number] Henok Sol Notes Date Note Type Note Provider Name and Address Organization Details Recorded Time 12/26/2023 text/html HPI Notes: 58 ye ar old male with history of prostate cancer who is now s/p radical prostatectomy with Dr. Freeman on 09/16/2023 He underwent radical prostatectomy with Dr. Freeman on 09/16/2023 His surgical pathology revealed [place] 4+3 = 7 disease. His surgical margins were positive, 1 mm [id number], grade group 3 His first post-operative PSA is <0.02 ng/mL (12/22/2023) He continues to have urinary leakage and erectile dysfunction He had seen Darrion Kirby PA-C in November and had both tadalafil and pelvic floor PT ordered, but states he has not received or started either Prior to conducting our video visit, the patient was apprised of the risks, benefits and alternatives to video visits including but not limited to poor video quality, interrupted visits due to technological limitations, delays in medical evaluation and treatment due to deficiencies or failures of equipment, failure of security protocols resulting in a breach of privacy of personal medical information and a lack of access to complete medical records resulting in not fully informed decisions. It was not possible for the patient to sign the privacy regulations, HIPAA release and assignment of benefits forms. The patient was given the opportunity to ask questions about these policies and gave verbal acknowledgement and approval of these policies as well as to hold this meeting by video. Lastly, the patient agreed to allowing their medication history to be pulled from a national pharmacy database to facilitate and coordinate their care. VIDEO visit lasting 5 minutes ART John [address] [place] [address],[address], [place], [address], [facility] 12/26/2023 15:37:58
--- OUTSIDE RECORDS SUMMARY | 2024-03-02 02:50 | XMS_ITS | Data Portability ---
Author Organization [facility], [facility] Address [address] [place] [address] Care Team Providers Care R And D Lab Technician Name Role Phone ISRRAEL BROWN Primary Care Provider Assessment Encounter Date Assessment Date Assessment LastModified by Organization Details LastModified Time 10/04/2023 10/04/2023 58 year old male with history of prostate cancer who is now s/p radical prostatectomy with Dr. Freeman on 09/16/2023 nick Not available 10/04/2023 15:34:41 12/26/2023 12/26/2023 58 year old male with [...] PSA, total, serum or plasma 2023 024 [email or web address], [address] [place], [address], 12/26/2023 15:37:55 PSA, total, serum or plasma 2023 024 [email or web address], [address] [facility] [place], [address], 12/26/2023 15:37:54 PSA, total, serum or plasma 2023 024 [place] [facility], [address], [place], [address], 12/23/2023 17:17:39 biopsy , prosta te 2022 023 [facility], [address], [address], [place], [address], 06/16/2023 12:05:35 Referral pelvic floor therap y referr al 2023 024 [email or web address] Not available 01/24/2024 10:33:31 pelvic floor therap y referr al - Discip line: physic al therap y / Please call patien t to schedu le Pelvic Floor Physic al Therap y. Thank you 2023 024 [email or web address] [facility], [address], [address], [place], [address], 11/29/2023 10:23:04 radiat ion oncolo gist referr al - PLEASE CONTAC T PATIEN T TO SCHEDU LE AN APPOIN TMENT WITH DR PAVON FOR IMRT 2022 023 [email or web address] Abner Pavon MD, [address], [place], [address], 07/18/2023 10:20:10 Procedures None record ed. Surgeries None record ed. Imaging None record ed. Medication Orders tadala floresita 5 mg tablet 2023 024 [id number], [address] [place], [place], [phone], 12/26/2023 15:44:49 tadala floresita 5 mg tablet 2023 024 [id number], [address] [place], [phone], 12/26/2023 15:12:16 ceftri axone 1 gram soluti on for inject ion 2022 023 [id number], [address] [place], [place], [phone], 10/04/2023 15:04:53 Patient TargetsNo targets recorded. Patient Instructions Encounter Date Encounter Id Patient Instructions Last Modified By Organization Details Last Modified Time 12/26/2023 [id number] Prostate cancer: - Will check is PSA again in 3 months, and then again at his year anniversary with a visit at that time Incontinence: - Pelvic floor PT sent over Erectile dysfunction: - New RX for tadalafil sent to pharmacy. Side effects of phosphodiesterase -5 inhibitors were discussed in detail. Potential side effects include headache, facial flushing, heartburn, nasal congestion, visual changes, myalgia and light headedness. nick Not available 12/26/2023 15:35:56 11/18/2023 [id number] 58 y/o male presents for a EMMANUEL evaluation Urinary incontinence - Continue kegel exercises daily. Referral to pelvic floor physical therapy for further evaluation and treatment. ED - Educated on EMMANUEL protocol such as consistent usage of PDE-5 inhibitors (Viagra or Cialis) and vacuum erection device (GEOVANY). Take tadalafil 5 mg daily and use GEOVANY 2-3x a week (15-20 minutes per use). Stimulate periodically to monitor effectiveness of medication and progress towards baseline erectile function. Side effects of PDE-5 inhibitors are vision/hearing changes, muscle aches, hypotension, facial flushing, headache, nasal congestion, GERD, and priapism. Not available 11/18/2023 16:09:26 10/04/2023 [id number] Hx of prostate cancer: He will keep his appointments as previously scheduled I will see him back in 3 months with his first PSA [email or web address] Not available 10/04/2023 15:36:29 Reason for Referral PLEASE CONTACT PATIENT TO EDI STAFFORD AN APPOINTMENT WITH DR PAVON FOR IMRT Referring Physician: Alistair Freeman, Urology, Encounter Date: 06/20/2023 Pelvic Floor Therapy Referra l for Male urinary stress incontinence Urinary incontinence s/p prostatectomy Discipline: physical therapy / Please call patient to schedule Pelvic Floor Physical Therapy. Thank you Referring Physician: Darrion Kirby, Urology, Encounter Date: 11/18/2023 Pelvic Floor Therapy Referra l for Male urinary stress incontinence Referring Physician: Mari Adhikari, Urology, Encounter Date: 12/26/2023 Results Created Date Observation Date Name Description Value Unit Range Abnormal Flag LastModifiedBy Organization Detail LastModifiedTime 05/05/2005/05/2023 PSA, total , serum or plasm a PSA 11.60 abnormal Not Available Not Available 01/2023 09:57:36 05/05/2005/05/2023 PSA, total , serum or plasm a PSA 11.60 high Not Available Not Available 10/2022 12:51:12 06/03/2005/30/2023 MRI, prost ate, w/wo contr ast No observ ation record ed. Not Available 06/13/2023 11:28:23 06/14/20 23 06/13/2023 US, prost ate No observ ation record ed. [email or web address] Not Available 06/14/20 09:56:09 Result Notes None recorded. Problems Name Status Onset Date Resolution Date Notes Provider Name and Address Organization Details Recorded Time Essential hypertension Active Gou Torito wilkins [facility] 11/18/2023 14:53:57 Problem Notes None recorded. Procedures Surgical History Date Name Laterality Status Provider Name and Address Organization Details Recorded Time 09/27/20 Catheter Removal completed Rosy wilkins [facility] 09/27/2023 12:11:48 06/13/20 23 Prostate Biopsy Procedure completed Alistair Freeman MD [address] [place] [address],[address], [place], [address], [facility] 06/16/2023 15:24:42 06/13/20 23 URONAV completed Alistair Freeman MD [address] [place] [address],[address], [place], [address], [facility] 06/16/2023 15:24:47 06/13/20 23 Rocephin/Horacioi juane completed Harrison wilkins [facility] 06/13/2023 14:05:53 06/13/20 23 Blood Draw/GARNISHMENT SPECIALIST/PSA RESULTS completed Harrison Pearl JAQUELINE wilkins - [facility] 06/13/2023 14:05:07 12/02/19 23 Diagnostic colonoscopy completed Not Available Health Note 09/30/2023 15:33:49 Insert epicard eltrd open completed Not Available Health Note 09/30/2023 15:33:49 Removal of prostate completed Not Available Health Note 09/30/2023 15:33:49 Imaging Results Imaging Date Name Status LastModified by Organiz ation Details LastModified Time 05/30/2023 MRI, prostate, w/wo contrast completed Information not available 06/13/2023 11:28:23 06/13/2023 US, prostate completed [email or web address] Informati on not available 06/14/2023 09:56:09 Procedure Notes None recorded. Medical Equipment None [...] t Available Vitals Date Recorded Body height Body mass index (BMI) Body weight Provider Name and Address Organization Details Last Updated DateTime 06/13/2023 177.8 cm 42.3 kg/m2 008790.75 g Kanu Gilmore [facility] 06/13/2023 15:27:15 Date Recorded Body height Body mass index (BMI) Body weight Provider Name and Address Organization Details Last Updated DateTime 06/20/2023 177.8 cm 42.3 kg/m2 441089.75 g Kanu Gilmore [facility] 06/20/2023 13:03:12 Date Recorded Body height Body mass index (BMI) Body weight Provider Name and Address Organization Details Last Updated DateTime 10/04/2023 177.8 cm 42.3 kg/m2 213494.75 g Bebe Smith [facility] 10/04/2023 15:04:40 Date Recorded Body height Body mass index (BMI) Body weight Provider Name and Address Organization Details Last Updated DateTime 11/18/2023 177.8 cm 42.3 kg/m2 656991.75 g Garry Newman [facility] 11/18/2023 14:53:02 Date Recorded Body height Provider Name an d Address Organization Details Last Updated DateTime 12/26/2023 177.8 cm Bebe Smith [facility] 12/26/2023 15:10:58 Social History Question [...] problems or disability Medical History Condition Response Other N High Blood Pressure Y Kidney Stones N Lung Disease N Depression N GERD/Acid Reflux N Sexually Transmitted Infection N Cancer N High Cholesterol N Diabetes N Bleeding Disorder N Heart Disease N Immunizations Vaccine Type Date Status Provider Name and Address Organization Details Recorded Time influenza, injectable, quadrivalent 07/15/2016 completed Kanu wilkins [facility] 06/13/2023 15:27:22 Influenza, injectable, MDCK, preservative free, quadrivalent 07/02/2020 bruce wilkins [facility] 06/13/2023 15:27:22 Influenza, injectable, MDCK, preservative free, quadrivalent 07/04/2019 bruce wilkins [facility] 06/13/2023 15:27:22 Tdap 05/05/2023 bruce wilkins [facility] 06/13/2023 15:27:22 Tdap 05/29/2013 completed Kanu wilkins, [facility] 06/13/2023 15:27:22 Influenza, seasonal, injectable 07/03/2017 completed Kanu wilkins, [facility] 06/13/2023 15:27:22 Influenza, seasonal, injectable 07/03/2018 completed Kanu wilkins, [facility] 06/13/2023 15:27:22 Influenza, seasonal, injectable 07/08/2011 completed Kanu wilkins, [facility] 06/13/2023 15:27:22 Influenza, seasonal, injectable 07/09/2010 completed Kanu wilkins, [facility] 06/13/2023 15:27:22 Influenza, seasonal, injectable 07/25/2012 completed Kanu wilkins, [facility] 06/13/2023 15:27:22 Influenza, seasonal, injectable 07/30/2014 [facility] 15:27:22 Influenza, seasonal, injectable, preservative free 08/10/2017 [facility] 15:27:22 Td (adult), 2 Lf tetanus toxoid, preservative free, adsorbed 05/08/2004 [facility] 15:27:22 influenza, injectable, quadrivalent, preservative free 07/12/2018 [facility] 15:27:22 Past Encounters Encounter ID Performer Location Encounter Start Date Encounter Closed Date Diagnosis/Indication Diagnosis SNOMED-CT Code [id number] Harrison Pearl [facility] [address] [place] [phone] 06/13/2023 13:56:59 06/13/2023 14:06:46 Prostate specific antigen above reference range [id number] MD Micheal [facility] [address] [place] [id number] [id number] 06/13/2023 14:00:07 06/16/2023 13:30:03 Prostate specific antigen above reference range [id number] Alistair Freeman MD [facility] [address] [facility],[address] [place] [id number] 06/20/2023 13:01:44 06/20/2023 13:38:50 Malignant tumor of prostate 184988059 [id number] Kanu Gilmore [facility] [address] [facility],[address] [place] [id number] 07/04/2023 10:47:36 07/04/2023 11:29:12 Carcinoma of prostate [id number] Rosy Heard [facility] [address] [facility],[address] [place] [id number] 09/27/2023 11:26:14 09/27/2023 12:21:58 Malignant tumor of prostate [id number] ART Randall [facility] [address] [place] [address],[address] [place] [id number] 10/04/2023 14:55:06 10/04/2023 15:59:16 History of malignant neoplasm of prostate [id number] DUY GOMEZ [facility] [address] [facility],[address] [place] [address] [id number] 11/18/2023 14:52:31 11/18/2023 16:56:33 Erectile dysfunction following radical prostatectomy [id number] Male urina ry stress incontinence 662155183 [id number] ART Randall [facility] [address] [facility],[address] [place] [address] [id number] 12/26/2023 15:09:44 12/26/2023 15:48:00 Erectile dysfunction following radical prostatectomy [id number] Male urina ry stress incontinence [id number] History of malignant neoplasm of prostate [id number] Health Concerns Section Related Observation LastModified by Organization Detai ls LastModified Time None Recorded Concern Status LastModified by Organization Details LastModified Time None Recorded Advance Directives Directive None Recorded Payers Encounter Date Sequence Insurance Name Policy Number Policy Garcia Covered Member ID Garcia Member ID Guarantor Name 12/26/2023 1 [place] [id number] Henok Larachke [id number] Henok Larachke 11/18/2023 1 [place] [id number] Henok Larachke [id number] Henok Larachke 10/04/2023 1 [facility] [id number] Henok Martin Paschke [id number] eHnok Martin Paschke 09/27/2023 1 [facility] [id number] Henok Martin Paschke [id number] Henok Martin Paschke 07/04/2023 1 [facility] [id number] Henok Martin Paschke [id number] Henok Martin Paschke 06/20/2023 1 [facility] [id number] Henok Martin Paschke [id number] Henok Martin Paschke 06/13/2023 1 [facility] [id number] Henok Martin Paschke [id number] Henok Martin Paschke 06/13/2023 1 [facility] [id number] Henok Martin Paschke [id number] Henok Larachke Notes Date Note Type Note Provider Name and Address Organization Details Recorded Time 06/20/2023 text/html HPI Notes: javad nt here today for followup of his prostate cancer high volume ramirez 7 disease (some 4+3=7 disease) psa 11 Alistair Freeman MD [address] [place] [address],[facility] [address], [place], [address], [facility] 06/20/2023 13:24:40 07/04/2023 text/html HPI Notes: Prior to conducting our telephone visit, the patient was apprised of the risks, benefits and alternatives to telephone visits including but not limited to poor audio quality, interrupted visits due to technological limitations, delays in medical evaluation and treatment due to deficiencies or failures of equipment, failure of security protocols resulting in a breach of privacy of personal medical information and a lack of access to complete medical records resulting in not fully informed. It was not possible for the patient to sign the privacy regulations, HIPAA release and assignment of benefits forms. The patient was given the opportunity to ask questions about these policies and gave verbal acknowledgement and approval of these policies as well as to hold this meeting by telephone. Lastly, the patient agreed to allowing their medication history to be pulled from a national pharmacy database to facilitate and coordinate their care. Patient had telephone encounter w me today. Discussed his followup from his family tumor conference. we discussed today at length his diagnosis again and he is now set on surgery. we discussed incontinence and ED again. he is sexually active and we discussed that we would attempt a nerve sparing, but on the right side we may be less aggressive with this. He also understands that he may need to have further treatment with radiation in the future for adjuvant or for recurrence given his higher risk disease. given psa of 11 and MRI findings, we did not pursue a PSMA scan. Will schedule for surgery in the next 1-2 months. Kanu wilkins, [facility] 08/01/2023 09:58:48 10/04/2023 text/html HPI Notes: 58 ye ar old male with history of prostate cancer who is now s/p radical prostatectomy with Dr. Freeman on 09/16/2023 He underwent radical prostatectomy with Dr. Freeman on 09/16/2023 His surgical pathology revealed Garrett 4+3 = 7 disease. His surgical margins were positive, 1 mm pT2pN0, grade group [address] ART John [address] [place] [address], [place], [address], [facility] 10/04/2023 15:36:38 11/18/2023 text/html HPI Notes: Erect ile Dysfunction Reported by patient. Notes: Patient presents for a EMMANUEL evaluation. He was able to achieve an ehs of 3-4 with adequate maintenance prior to surgery (no need for PDE-5 inhibitors). Currently, he has not attempted stimulation since surgery. He is not taking any PDE-5 inhibitors. He is using the vacuum erection device 2x a week. Full erection in the device. Incontinence Reported by patient. Notes: Patient presents for a urinary incontinence evaluation s/p prostatectomy. No issues with urinary incontinence prior to surgery. Currently, he reports urinary incontinence with bending at the waist, lifting objects and passing gas. He is wearing 5-6 pads daily for incontinence. He is completing kegel exercises daily. RRP completed on 09/16/[address] Freeman. Bilateral nerve sparing. Prior to conducting our video visit, the [...] database to facilitate and coordinate their care. DUY GOMEZ [address] [place] [address],[address], [place], [address], [facility] 11/18/2023 16:09:37 12/26/2023 text/html HPI Notes: 58 ye ar old male with history of prostate cancer who is now s/p radical prostatectomy with Dr. Freeman on 09/16/2023 He underwent radical prostatectomy with Dr. Freeman on 09/16/2023 His surgical pathology revealed Ramirez 4+3 = 7 disease. His surgical margins [...] VIDEO visit lasting 5 minutes ART John [address] [place] [address],[address], [place], [address], [facility] 12/26/2023 15:37:58
[2024-03-02 02:53] LABS: Chloride* 109 mmol/L (96-114); Potassium* 3.3 mmol/L (3.6-5.1); Sodium* 142 mmol/L (135-149)
[2024-03-02 02:55] LABS: Creatinine* 0.8 mg/dL (0.5-1.5); Estimated Glomerular Filt Rate 103 ml/min
[2024-03-02 02:56] LABS: Anion Gap 8 mEq/L (7-15); Blood Urea Nitrogen* 23 mg/dL (7-30); Calcium* 9.2 mg/dL (8.4-10.6); Carbon Dioxide* 25 mmol/L (20-32); Glucose* 134 mg/dL (60-115); Magnesium* 2.2 mg/dL (1.5-2.6)
--- NOTE | 2024-03-02 04:54 | P.ANES_ITS ---
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
[2024-03-02] MEDS: APIXABAN 5 MG TABLET PO (05:51)
== END 2024-03-02 06:02 | disposition home or self-care (01) ==
PROVIDERS: Emergency Provider Family Medicine; PCP Physician Assistant
DX: I48.0 Paroxysmal atrial fibrillation (principal)
CPT/HCPCS: 92960; 00410; 36415; 80048; 83735; 85025; 93005; 94761; 99140; 99284; 99285; 99291; A9270; J7030

== ENCOUNTER 2024-03-09 12:44 | Outpatient (CLI) | payer BC, SELFPAY ==
--- OUTSIDE RECORDS SUMMARY | 2024-03-09 12:46 | XMS_ITS | Data Portability ---
Author Organization [facility], [facility] Address [address] [place] [address] Care Team Providers Care Railroad Carman Name Role Phone ISRRAEL BROWN Primary Care Provider Assessment Encounter Date Assessment Date Assessment LastModified by Organization Details LastModified Time 10/04/2023 10/04/2023 58 year old male with history of prostate cancer who is now s/p radical prostatectomy with Dr. Freeman on 09/16/2023 [email or web address] Not available 10/04/2023 15:34:41 12/26/2023 12/26/2023 58 year old male with history of prostate cancer who is now s/p radical prostatectomy with Dr. Freeman on 09/16/2023 [email or web address] Not available 12/26/2023 15:33:32 Plan of Treatment Reminders Order Date Submit Date Provider Last Modified By Organization Details Last Modified Time Details Appointments ESTABL ISHED VIDEO VISIT 20 2023 03:00P DUY Che Not available Not available Not available Lab PSA, total, serum or plasma 2023 024 [facility], [address] [place] [address], [address], 03/05/2024 08:01:10 PSA, total, serum or plasma 2023 024 [email or web address] [facility], [address] [place] [address] [place], [address], 12/26/2023 15:37:54 PSA, total, serum or plasma 2023 024 [facility], [address], [place], [address], 12/23/2023 17:17:39 biopsy , prosta te 2022 023 [facility], [address], [address], [place], [address], 06/16/2023 12:05:35 Referral pelvic floor therap y referr al 2023 024 [email or web address] Not available 01/24/2024 10:33:31 pelvic floor therap y referr al - Discip line: physic al therap y / Please call patien t to schedu le Pelvic Floor Physic al Therap y. Thank you 2023 024 [email or web address] [facility], [address], [address], [place], [address], 11/29/2023 10:23:04 radiat ion oncolo gist referr al - PLEASE CONTAC T PATIEN T TO SCHEDU LE AN APPOIN TMENT WITH DR PAVON FOR IMRT 2022 023 [email or web address], [address], [place], [address], 07/18/2023 10:20:10 Procedures None record ed. Surgeries None record ed. Imaging None record ed. Medication Orders tadala floresita 5 mg tablet 2023 024 [id number], [address] [place], [place], [id number], 12/26/2023 15:44:49 tadala floresita 5 mg tablet 2023 024 [id number], [address] [place], [id number], 12/26/2023 15:12:16 ceftri axone 1 gram soluti on for inject ion 2022 023 [id number], [address] [place], [place], [id number], 10/04/2023 15:04:53 Patient TargetsNo targets recorded. Patient Instructions Encounter Date Encounter Id Patient Instructions Last Modified By Organization Details Last Modified Time 12/26/2023 [id number] Prostate cancer: - Will check is PSA [...] headedness. nick Not available 12/26/2023 15:35:56 11/18/2023 [id number] 58 y/o male presents for a EMMANUEL [...] and priapism. Not available 11/18/2023 16:09:26 10/04/2023 [id number] Hx of prostate cancer: He will keep [...] Floor Physical Therapy. Thank you Referring Physician: Odin Kirby, Urology, Encounter Date: 11/18/2023 Pelvic Floor [...] prost ate No observ ation record ed. [email or web address] Not Available 06/14/20 09:56:09 Result Notes None recorded. Problems Name Status Onset Date Resolution Date Notes Provider Name and Address Organization Details Recorded Time Essential hypertension Active Gou Torito wilkins [facility] 11/18/2023 14:53:57 Problem Notes None recorded. Procedures Surgical History Date Name Laterality Status Provider Name and Address Organization Details Recorded Time 09/27/20 Catheter Removal completed Rosy wilkins [facility] 09/27/2023 12:11:48 06/13/20 23 Prostate Biopsy Procedure completed Alistair Freeman MD [address] [place] [address],[address], [place], [address], [facility] 06/16/2023 15:24:42 06/13/20 23 URONAV completed Alistair Freeman MD [address] [place] [address],[address], [place], [address], [facility] 06/16/2023 15:24:47 06/13/20 23 Rocephin/Horacioi juane completed Harrison wilkins [facility] 06/13/2023 14:05:53 06/13/20 23 Blood Draw/ATTENDING PATHOLOGIST/PSA RESULTS completed Harrison Pearl JAQUELINE wilkins - [facility] 06/13/2023 14:05:07 12/02/19 23 Diagnostic colonoscopy completed Not Available Health Note 09/30/2023 15:33:49 Insert epicard eltrd open completed Not Available Health Note 09/30/2023 15:33:49 Removal of prostate completed Not Available Health Note 09/30/2023 15:33:49 Imaging Results Imaging Date Name Status LastModified by Organiz ation Details LastModified Time 05/30/2023 MRI, prostate, w/wo contrast completed Information not available 06/13/2023 11:28:23 06/13/2023 US, prostate completed [email or web address] Informati on not available 06/14/2023 09:56:09 Procedure [...] Updated DateTime 06/13/2023 177.8 cm 42.3 kg/m2 318771.75 g Kanu Gilmore [facility] 06/13/2023 15:27:15 Date Recorded Body height Body mass index (BMI) Body weight Provider Name and Address Organization Details Last Updated DateTime 06/20/2023 177.8 cm 42.3 kg/m2 148130.75 g Kanu Gilmore [facility] 06/20/2023 13:03:12 Date Recorded Body height Body mass index (BMI) Body weight Provider Name and Address Organization Details Last Updated DateTime 10/04/2023 177.8 cm 42.3 kg/m2 150661.75 g Bebe Smith [facility] 10/04/2023 15:04:40 Date Recorded Body height Body mass index (BMI) Body weight Provider Name and Address Organization Details Last Updated DateTime 11/18/2023 177.8 cm 42.3 kg/m2 456483.75 g Garry Newman [facility] 11/18/2023 14:53:02 Date Recorded Body height Provider Name an d Address Organization Details Last Updated DateTime 12/26/2023 177.8 cm Bebe Smith [facility] 12/26/2023 15:10:58 Social History Question [...] problems or disability Medical History Condition Response Diabetes N Sexually Transmitted Infection N Other N Bleeding Disorder N High Blood Pressure Y Kidney Stones N Cancer N Lung Disease N Depression N High Cholesterol N GERD/Acid Reflux N Heart Disease N Immunizations Vaccine Type Date Status Provider Name and Address Organization Details Recorded Time Influenza, split virus, quadrivalent, preservative 07/15/2016 completed Kanu wilkins [facility] 06/13/2023 15:27:22 Influenza, MDCK, quadrivalent, PF 07/02/2020 completed Kanu wilkins [facility] 06/13/2023 15:27:22 Influenza, MDCK, quadrivalent, PF 07/04/2019 completed Kanu wilkins [facility] 06/13/2023 15:27:22 Tdap 05/05/2023 completed Kanu wilkins [facility] 06/13/2023 15:27:22 Tdap 05/29/2013 completed Kanu wilkins, [facility] 06/13/2023 15:27:22 Influenza, split virus, trivalent, preservative 07/03/2017 completed Kanu wilkins, [facility] 06/13/2023 15:27:22 Influenza, split virus, trivalent, preservative 07/03/2018 completed Kanu wilkins, [facility] 06/13/2023 15:27:22 Influenza, split virus, trivalent, preservative 07/08/2011 completed Kanu wilkins, [facility] 06/13/2023 15:27:22 Influenza, split virus, trivalent, preservative 07/09/2010 completed Kanu wilkins, [facility] 06/13/2023 15:27:22 Influenza, split virus, trivalent, preservative 07/25/2012 completed Kanu wilkins, [facility] 06/13/2023 15:27:22 Influenza, split virus, trivalent, preservative 07/30/2014 completed Kanu wilkins, [facility] 06/13/2023 15:27:22 Influenza, split virus, trivalent, PF 08/10/2017 completed Kanu wilkins, [facility] 06/13/2023 15:27:22 Td (adult), 2 Lf tetanus toxoid, preservative free, adsorbed 05/08/2004 [facility] 15:27:22 Influenza, split virus, quadrivalent, PF 07/12/2018 [facility]23 15:27:22 Past Encounters Encounter ID Performer Location Encounter Start Date Encounter Closed Date Diagnosis/Indication Diagnosis SNOMED-CT Code [id number] Harrison [place] [facility] [address] [place] [id number] 06/13/2023 13:56:59 06/13/2023 14:06:46 Prostate specific antigen above reference range [id number] MD Andria [facility] [address] [place] [id number] 06/13/2023 14:00:07 06/16/2023 13:30:03 Prostate specific antigen above reference range [id number] Alistair Freeman MD [facility] [phone] 06/20/2023 13:01:44 06/20/2023 13:38:50 Malignant tumor of prostate [id number] Kanu Gilmore [facility] [address] [place] [id number] 07/04/2023 10:47:36 07/04/2023 11:29:12 Carcinoma of prostate [id number] Rosy Heard [facility] [address] [place] [id number] 09/27/2023 11:26:14 09/27/2023 12:21:58 Malignant tumor of prostate 533389063 [id number] ART Randall [facility] [address] [place] [id number] 10/04/2023 14:55:06 10/04/2023 15:59:16 History of malignant neoplasm of prostate [id number] DUY GOMEZ [facility] [address] [place] [id number] 0 11/18/2023 14:52:31 11/18/2023 16:56:33 Erectile dysfunction following radical prostatectomy [id number] Male urina ry stress incontinence 398182230 [id number] ART Randall [facility] [address] [place] [address] [place] [id number] 12/26/2023 15:09:44 12/26/2023 15:48:00 Erectile dysfunction following radical prostatectomy [id number] Male urina ry stress incontinence 391967909 History of malignant neoplasm of prostate 751612891 Health Concerns Section Related Observation LastModified by Organization Detai ls LastModified Time None Recorded Concern Status LastModified by Organization Details LastModified Time None Recorded Advance Directives Directive None Recorded Payers Encounter Date Sequence Insurance Name Policy Number Policy Garcia Covered Member ID Garcia Member ID Guarantor Name 12/26/2023 1 [place] [id number] Henok Martin Paschke [id number] Henok Martin Paschke 11/18/2023 1 [place] [id number] 2 Henok Martin Paschke [id number] Henok Mario Paschke 10/04/2023 1 [facility] [id number] Henok J Paschke [id number] Henok J Paschke 09/27/2023 1 [facility] [id number] Henok J Paschke [id number] Henok Mario Paschke 07/04/2023 1 [facility] [id number] Henok Mario Paschke [id number] Henok Mario Paschke 06/20/2023 1 [facility] [id number] Henok J Paschke [id number] Henok Mario Paschke 06/13/2023 1 [facility] [id number] Henok J Paschke [id number] Henok Mario Paschke 06/13/2023 1 [facility] [id number] Henok Mario Paschke [id number] Henok Mario Paschke Notes Date Note Type Note Provider Name and Address Organization Details Recorded Time 06/20/2023 text/html HPI Notes: javad nt here today for followup of his prostate cancer high volume ramirez 7 disease (some 4+3=7 disease) psa 11 Alistair Freeman MD [address] [place] [address], [phone], [facility] 06/20/2023 13:24:40 07/04/2023 text/html HPI [...] in the next 1-2 months. Kanu wilkins, [facility] 08/01/2023 09:58:48 10/04/2023 text/html HPI Notes: 58 ye ar old male with history of prostate cancer who is now s/p radical prostatectomy with Dr. Freeman on 09/16/2023 He underwent radical prostatectomy with Dr. Freeman on 09/16/2023 His surgical pathology revealed Leips[place] 4+3 = 7 disease. His surgical margins were positive, 1 mm pT2pN0, grade group [address] ART John [address] [place] [address],[address], [address], [facility] 10/04/2023 15:36:38 11/18/2023 text/html HPI [...] database to facilitate and coordinate their care. ODIN KIRBY, [address], [place], [address], [facility] 11/18/2023 16:09:37 12/26/2023 text/html HPI [...] leakage and erectile dysfunction He had seen Odin Kirby PA-C in November and had both [...] VIDEO visit lasting 5 minutes ART John [address] [place] [address],[address], [place], [address], [facility] 12/26/2023 15:37:58
--- OUTSIDE RECORDS SUMMARY | 2024-03-09 12:46 | XMS_ITS | Clinical Summary ---
Author Organization [facility] Address [place], [place] [address] Care Team Providers Care Case Fitter Name Role Phone Glo Slaughter Primary Care Provider [phone]- [phone] Allergies No known active allergies Medications Medication [...] Description 12/22/2023 4:20 PM CDT Orders Only [address] [address] Lab, [facility] 12/22/2023 Travel from Last 3 Months Immunizations Name Administration [...] Comments Blood Pressure 151/97 10/14/2023 8:22 AM APPELLATE CONFEREE Pulse 93 10/14/2023 8:22 AM APPELLATE CONFEREE Temperature 37.1 ??C (98.7 ??F) 09/24/2023 1:34 PM CS T Respiratory Rate 18 09/24/2023 1:34 PM APPELLATE CONFEREE Oxygen Saturation 96% 10/14/2023 8:22 AM APPELLATE CONFEREE Inhaled Oxygen Concentration - - Weight 139.7 kg (308 lb) 10/14/2023 8:22 AM APPELLATE CONFEREE Height 175.3 cm (5' 9) 09/24/2023 1:40 PM APPELLATE CONFEREE Body Mass Index 45.48 09/24/2023 1:40 PM APPELLATE CONFEREE Plan of Treatment Upcoming Encounters Date Type Department Care Team (Late st Contact Info) Description 03/09/2024 1:00 PM CDT Ancillary Procedure [facility] [address] [place] [address] 04/02/2024 1:00 PM CDT Office Visit [facility] [address] [facility] [address] [place] [phone] Tam Lomeli MD [address] [facility] [address] [place], [place] [phone] Health Maintenance Due Date Last Done Comments [...] <0.02 <4.00 ng/mL 12/23/2023 1:43 PM CDT [facility] Blood BLOOD SPECIMEN / Unknown Venipuncture / Unknown 12/22/2023 4:15 PM CDT 12/22/2023 4:15 PM [facility]T [facility] 12/23/2023 1:43 PM CDT [...] different and cannot be used interchangeably. Joe Vargas MD CHEMISTRY [facility] [address] [place] [address], * LC HCV ANTIBODY RFX TO QUANT PCR (05/05/2023 3:16 PM CDT) Pathologist [facility] HCV Ab Non Reactive Non Reactive 05/08/2023 7:07 AM CDT [facility] ([facility]) Blood BLOOD SPECIMEN / Unknown Venipuncture / Unknown 05/05/2023 3:16 PM CDT 05/05/2023 3:17 PM CDT [facility] ([facility]) - 05/08/2023 7:07 AM CDT Performed at: ??[address] ??[id number] Medical Office Assistant Instructor: Will Bautista MD, Phone: ??[phone] [facility] ([facility]) [address] [place] [address], * HIV-1/O/2, 4TH GENERATION (05/05/2023 3:16 PM CDT) Pathologist [facility] HIV Scr 4th Gen Non Reactive Non Reactive 05/08/2023 7:07 AM CDT [facility] ([facility]) Comment: HIV Negative HIV-1/HIV-2 antibodies and HIV-1 p24 antigen were NOT detected. There is no laboratory evidence of HIV infection. Blood BLOOD SPECIMEN / Unknown Venipuncture / Unknown 05/05/2023 3:16 PM CDT 05/05/2023 3:17 PM CDT [facility] ([facility]) - 05/08/2023 7:07 AM CDT Performed at: ??[address] ??[id number] Medical Office Assistant Instructor: Will Bautista MD, Phone: ??[phone] Gl[facility] ([facility]) [address] [place] [address], * (ABNORMAL) LIPID PANEL W REFLEX MEASURED LDL (05/05/2023 3:16 PM CDT) CHOLESTEROL,TOTAL 203(H) 100 - 199 mg/dL 05/06/2023 1:21 AM CDT [facility] Comment: Cholesterol, Total Reference Ranges Desirable <200 mg/dL Borderline 200-239 mg/dL High >=240 mg/dL TRIGLYCERIDES 254(H) <150 mg/dL 05/06/2023 1:21 AM CDT [facility] HDL CHOLESTEROL 31(L) >40 mg/dL 1:21 AM CDT [facility] NON-HDL CHOLESTEROL 172(H) <145 mg/dl 05/06/2023 1:21 AM CDT [facility] CHOL/HDL RATIO 6.55(H) <4.50 05/06/2023 1:21 AM CDT [facility] LDL CHOLESTEROL 121 <=130 mg/dL 05/06/2023 1:21 AM CDT [facility] VLDL CHOLESTEROL 51(H) <=30 mg/dL 05/06/2023 1:21 AM CDT [facility] PROVIDER ORDERED STATUS RANDOM 05/06/2023 1:21 AM CDT [facility] Blood BLOOD SPECIMEN / Unknown Venipuncture / Unknown 05/05/2023 3:16 PM CDT 05/05/2023 3:17 PM CDT [facility] [address] [place] [address], [place] * COLONOSCOPY (06/23/2022 7:37 AM CDT) 06/23/2022 7:37 AM CDT Narrative Transcriptions Willard Matos MD - 06/23/2022 8:54 AM CDT Patient Name: Henok Sol Procedure Date: 06/23/2022 Gender: Male Date of : 1965 Admit Type: Outpatient Procedure: Colonoscopy Proceduralist: Willard Matos MD , Josefina Mendoza (Nurse), Aaliyah aGona (Nurse) Referring MD: Abner Tapia Indications/Pre-Op Diagnosis: [...] 7:37 AM Procedure Code(s): --- Professional --- 32615, Colonoscopy, flexible; diagnostic, including collection of specimen(s) bybrushing or washing, when performed (separateprocedure) Diagnosis Code(s): --- Professional --- Z12.11, Encounter for screening formalignant neoplasm of colon K57.30, Diverticulosis of large intestine without perforation or abscess withoutbleeding CPT copyright 2020 [employer]. All rights reserved. The codes documented in this report are preliminary and upon machine captain reviewmay be revised to meet current compliance requirements. Scope In: 8:35:54 AM Scope Withdrawal Time 0 hours 7 minutes 43 seconds Scope Out: 8:48:27 AM Willard Matos MD PROCEDURE ORD from Last 3 Months or Most Recently Relevant to Health Maintenance Advance Directives Documents on File Type Date Recorded Patient Fitness Club Manager Expl anation Healthcare Directive 08/02/2023 023 * [...] 3:14 PM 08/09/2006 4:19 PM Care Teams Case Fitter Relationship Specialty Start Date End Date Glo Slaughter PA [address] [place] [address] PCP - General Physician Proposal Writer 05/07/23
--- OUTSIDE RECORDS SUMMARY | 2024-03-09 12:47 | XMS_ITS | Continuity of Care Document ---
Author Organization [facility], [facility] Address [address] [place] [address] Care Team Providers Care Applications Engineer Name Role Phone ISRRAEL BROWN Primary Care [...] PSA, total, serum or plasma 2023 024 [facility] [address] [place], [address], 03/05/2024 08:01:10 PSA, total, serum or plasma 2023 024 [email or web address] [facility] ult Lab, [address] [place], [address], 12/26/2023 15:37:54 Referral pelvic floor therap y referr al 2023 024 [email or web address] Not available 01/24/2024 10:33:31 Procedures None record ed. Surgeries None record ed. Imaging None record ed. Medication Orders tadala floresita 5 mg tablet 2023 024 [id number], [address] , [place], [place], [phone], 12/26/2023 15:44:49 Patient TargetsNo targets recorded. Patient Instructions Encounter Date Encounter Id Patient Instructions Last Modified By Organization Details Last Modified Time 12/26/2023 [id number] Prostate cancer: - Will check is PSA [...] Physician: Mari Adhikari, Urology, Encounter Date: 12/26/2023 Problems Name Status Onset Date Resolution Date Notes Provider Name and Address Organization Details Recorded Time Essential hypertension Active Gou Torito wilkins [facility] 11/18/2023 14:53:57 Problem Notes None recorded. Procedures Surgical History Date Name Laterality Status Provider Name and Address Organization Details Recorded Time 09/27/20 23 Catheter Removal completed Rosy wilkins [facility] 09/27/2023 12:11:48 06/13/20 23 Prostate Biopsy Procedure completed Alistair Freeman MD [address] [place] [address],[address], [place], [address], [facility] 06/16/2023 15:24:42 06/13/20 23 URONAV completed Alistair Freeman MD [address] [facility],[address], [place], [address], [facility] 06/16/2023 15:24:47 06/13/20 23 Rocephin/Ceftri axone completed Harrison wilkins [facility] 06/13/2023 14:05:53 06/13/20 23 Blood Draw/[employer]ANT CONSULTANT/PSA RESULTS completed Harrison wilkins [facility] 06/13/2023 14:05:07 12/02/19 23 Diagnostic colonoscopy [...] Updated DateTime 12/26/2023 177.8 cm Bebe Smith [place] [facility] [place] [facility] 12/26/2023 15:10:58 Social History Question [...] High Blood Pressure Y Kidney Stones N Depression N Lung Disease N GERD/Acid Reflux N Diabetes N Sexually Transmitted Infection N Bleeding Disorder N Cancer N High Cholesterol N Heart Disease N Immunizations Vaccine Type Date Status Provider Name and Address Organization Details Recorded Time Influenza, split virus, quadrivalent, preservative 07/15/2016 completed Kanu Burgosud null, [facility] 06/13/2023 15:27:22 Influenza, MDCK, quadrivalent, PF 07/02/2020 completed Kanu wilkins, [facility] 06/13/2023 15:27:22 Influenza, MDCK, quadrivalent, PF 07/04/2019 completed Kanu wilkins [facility] 06/13/2023 15:27:22 Tdap 05/05/2023 completed Kanu wilkins [facility] 06/13/2023 15:27:22 Tdap 05/29/2013 [facility] 15:27:22 Influenza, split virus, trivalent, preservative 07/03/2017 completed Kanu wilkins [facility] 06/13/2023 15:27:22 Influenza, split virus, trivalent, preservative 07/03/2018 completed Kanu wilkins [facility] 06/13/2023 15:27:22 Influenza, split virus, trivalent, preservative 07/08/2011 completed Kanu Burgosud null [facility] 06/13/2023 15:27:22 Influenza, split virus, trivalent, preservative 07/09/2010 completed Kanu wilkins [facility] 06/13/2023 15:27:22 Influenza, split virus, trivalent, preservative 07/25/2012 completed Kanu wilkins [facility] 06/13/2023 15:27:22 Influenza, split virus, trivalent, preservative 07/30/2014 completed Kanu wilkins [facility] 06/13/2023 15:27:22 Influenza, split virus, trivalent, PF 08/10/2017 completed Kanu wilkins, [facility] 06/13/2023 15:27:22 Td (adult), 2 Lf tetanus toxoid, preservative free, adsorbed 05/08/2004 completed Kanu wilkins, [facility] 06/13/2023 15:27:22 Influenza, split virus, quadrivalent, PF 07/12/2018 completed Kanu wilkins, [facility] 06/13/2023 15:27:22 Past Encounters Encounter ID Performer Location Encounter Start Date Encounter Closed Date Diagnosis/Indication Diagnosis SNOMED-CT Code [id number] ART Randall_Woo [address] [address] 12/26/2023 15:09:44 12/26/2023 15:48:00 Erectile dysfunction following radical prostatectomy [id number] Male urina ry stress incontinence [id number] History of malignant neoplasm of prostate [id number] Health Concerns Section Related Observation LastModified by Organization Detai ls LastModified Time None Recorded Concern Status LastModified by Organization Details LastModified Time None Recorded Payers Encounter Date Sequence Insurance Name Policy Number Policy Garcia Covered Member ID Garcia Member ID Guarantor Name 12/26/2023 1 [place] [id number] 2 Henok Sol [id number] Henok Sol Notes Date Note Type Note Provider Name and Address Organization Details Recorded Time 12/26/2023 text/html HPI Notes: 58 ye ar old male with history of prostate cancer who is now s/p radical prostatectomy with Dr. Freeman on 09/16/2023 He underwent radical prostatectomy with Dr. Freeman on 09/16/2023 His surgical pathology revealed Boswell 4+3 = 7 disease. His surgical margins [...] VIDEO visit lasting 5 minutes ART John [address] [place] [address],[address], [place], [address], [facility] 12/26/2023 15:37:58
== END 2024-03-09 12:45 | disposition home or self-care (01) ==
LOC: RAD 12:45
PROVIDERS: PCP Physician Assistant; Visit Provider Family Medicine
DX: I48.0 Paroxysmal atrial fibrillation (principal)
CPT/HCPCS: 93306

== ENCOUNTER 2025-04-27 17:12 | Emergency (ER) | payer BC, SELFPAY ==
[2025-04-27] VITALS (26 sets, daily range): BP systolic 125–160; BP diastolic 85–104; PULSE 71–155; RESP 13–22; TEMP 36.8; O2SAT 93–98; BMI 40.6
--- OUTSIDE RECORDS SUMMARY | 2025-04-27 17:14 | XMS_ITS | CCD ---
Author Name Interface, C1Aslylk[facility] lity Address [address] [place] [address] [address] [place] [address] [facility] Address [facility] [address] [place] [address] Care Team Providers Care [facility] Name Role Phone Collins PALOMO, Abner Alford Unavailable Unavailable Reason for Visit NURSE VISIT 15 MIN Social History Date Name Value 06/28/2023 Sex Male
--- OUTSIDE RECORDS SUMMARY | 2025-04-27 17:14 | XMS_ITS | Clinical Summary ---
Author Organization [employer] [facility] Address [address] [place] [address] Care Team Providers Care Ham Facer Name Role Phone Glo Slaughter Primary Care Provider [phone] Allergies No known active allergies Medications Lactobacillus acidophilus (PROBIOTIC ORAL) Take by mouth once daily. Active metoprolol tartrate (LOPRESSOR) 50 mg tabletIndication s:HTN (hypertension) Take 1 Tablet (50 mg) by mouth two times daily. 180 Tablet 3 5 Active magnesium 250 mg tab Take 1 Tablet (250 mg) by mouth once daily. 5 Active buPROPion 150 mg Extended-Release tabletIndication s:Class 3 severe obesity with body mass index (BMI) of 45.0 to 49.9 in adult (HC) Take 1 Tablet (150 mg) by mouth once daily in the morning. 90 Tablet 3 5 Active lisinopriL (PRINIVIL; ZESTRIL) 40 mg tabletIndication s:Essential hypertension Take 1 Tablet (40 mg) by mouth once daily. 90 Tablet 3 5 Active CPAPIndications: MALU (obstructive sleep apnea) RESMED CPAP (E0601) machine for home use at pressure: 8-15cmw, Choice of mask (A7030 or A7034) w/full face cushion (A7031) x1/mo, nasal cushion (A7032) x2/mo, or nasal pillows (A7033) x 2/mo; Length of Need: 99 months; Frequency of use: Daily 1 Each 5 Active CPAPIndications: MALU (obstructive sleep apnea) CPAP machine for home [...] Frequency of use: Daily 1 Each 11 2 025 Discontin ued(*Med complete/ Regimen complete/ Level of care change) lisinopriL 30 mg tabletIndication s:HTN (hypertension) Take 1 Tablet (30 mg) by mouth once daily. 90 Tablet 3 5 025 Discontin ued(*Medi cation adjustmen t) Active Problems Problem Noted Date Diagnosed Date HTN (hypertension) 10/17/2023 Prostate cancer 10/17/2023 Prediabetes 05/06/2023 Umbilical hernia without obstruction and without gangrene 05/05/2023 Colon polyp 01/17/2012 Overview (01/17/2012): Colonoscopy 01/2012 hyperplastic polyp repeat in 10 years Impaired fasting glucose 10/06/2010 Lateral L1-2 Disk Fragment 05/14/2010 Spondylosis, lumbosacral 05/13/2010 Overview (05/13/2010): L1-2 Kidney stone 10/24/2009 Displacement of cervical int ervertebral disc without myelopathy 04/12/2008 OBSTRUCTIVE SLEEP APNEA Overview (08/09/2006): diagnosed 2004 but not treated at this point (08/2006) Seasonal allergic rhinitis due to pollen HYPERLIPIDEMIA MIXED Obesity, unspecified Unspecified essential hypertension Resolved Problems Problem Noted Date Diagnosed Date Resolved Date Paroxysmal SVT (supraventricular tachycardia) 10/31/19 24 10/25/2024 Paroxysmal atrial fibrillation 07/04/2015 05/07/2023 ATRIAL FIBRILLATION W/ RVR 0 10/25/2024 Overview (08/09/2006): History of PAFwith multiple chemical and electrical cardioversions Hx intolerance to b-blockers d/t somnilence s/p catheter-based afib ablation 10/13/2005 w/ Dr. Lomeli ASA discontinued 08/05/06 No recurrence afib s/p ablation until 08/08/06 pm - associated chest pressure and sob with afib and RVR Encounters Date Type Department Care Team Description 04/24/2025 9:30 AM CDT Office Visit [facility] [address] [place] [address] Edward Klein MD Sleep Follow-up 04/23/2025 3:15 PM CDT Orders Only [facility] [address] [place] [address] Lab, [place] [facility] 04/23/2025 Travel 04/16/2025 2:50 PM CDT Nurse/Clinic Staff Only [facility] [address] [place] [address] Blood Pressure (156/82) 04/16/2025 Telephone [facility] [address] [place] [address] Glo Slaughter PA Blood Pressure 04/16/2025 Travel 03/26/2025 2:50 PM CDT Office Visit [facility] [address] [place] [address] Glo Slaughter PA Follow Up (BP recheck and med check) 03/26/2025 Travel from Last 3 Months Immunizations Immunization Administration Dates Next Due AMB INFLUENZA, IIV4 (AGE=>6M OS) MDV (Flu Clinic Only) 07/04/2019 Influenza, IIV3 (Age 6-35 mos) 08/10/2017 Influenza, IIV3 (Age >=3 years) 07/03/20 20,07/03/2018,07/03/2017,2013,07/25/2012,07/08/2011,07/09/2010 Influenza, IIV4 07/12/2018 Influenza, IIV4 (=>6mos) MDV [...] Answer Date Recorded PHQ-2 TOTAL SCORE 0 03/26/2025 Social Connections Answer Date Recorded Do you often feel lonely or isolated from those around you? 0 10/18/2024 Financial Resource Strain Answer Date R ecorded Difficulty of Paying Living Expenses 3 10/18/2024 Difficulty of Paying Living Expenses Not on file 10/18/2024 Food Insecurity Answer Date Recorded Do you worry your food will run out before you are able to buy more? 1 10/18/2024 Transportation Needs Answer Date Record ed Does lack of transportation keep you from medica l appointments? 1 10/18/2024 Does lack of transportation keep you from work, meetings or getting things that you need? 1 10/18/2024 Housing Stability Answer Date Recorded What is your housing situation today? 1 10/18/2024 Interpersonal Safety Answer Date Record ed Are you being hit, kicked, p ushed or yelled at (see row info)? No 09/24/2023 Interpersonal Safety Abuse 12 - 18 Not on file 09/24/2023 Interpersonal Safety Ambulatory Vulnerability No t on file 09/24/2023 Utilities Answer Date Recorded Do you have trouble paying f or utilities (for example, heat, electricity, water, phone)? 1 10/18/2024 Sex and Gender Information Value Date Recorded Sex Assigned at Not on file Legal Sex Male 6:38 AM FRUIT COORDINATOR Gender Identity Not on file Sexual Orientation Straight 12/30/2021 7: 33 AM CDT Occupation Industry Job Start Date Job End Date [employer] Not on file Not on file Not on file Obstetrics History Last Filed Vital Signs Vital Sign Reading Time Taken Comments Blood Pressure 184/113 04/24/2025 9:37 AM CDT Pulse 78 04/24/2025 9:33 AM CDT Temperature 37.1 C (98.7 F) 09/24/2023 1:34 PM FRUIT COORDINATOR Respiratory Rate 18 09/24/2023 1:34 PM FRUIT COORDINATOR Oxygen Saturation 96% 04/24/2025 9:33 AM CDT Inhaled Oxygen Concentration - - Weight 140.9 kg (310 lb 9.6 oz) 04/24/2025 9:33 AM CDT Height 174.5 cm (5' 8.7) 04/24/2025 9:33 AM CDT Body Mass Index 46.27 04/24/2025 9:33 AM CDT Plan of Treatment Health Maintenance Due Date Last Done Comments Hepatitis B series for 19+ ( 1 of 3 - 19+ 3-dose series) 1985 Pneumococcal series for age 50+ (1 of 1 - PCV) 02/26/2016 Zoster (shingles) series for age 50+ (1 of 2) 02/26/2016 COVID-19 vaccine series ( - season) 2024 Influenza Vaccine (#1) 2025 , 07/02/2020, 07/04/2019, Additional history exists Depression screening for age 12+ 03/26/2026 03/26/2025, 05/05/2023, 04/06/2022, Additional history exists BMI (ht and wt on same day) for age 18+ 04/24/2026 04/24/2025, 10/23/2024, 04/02/2024, Additional history exists Lipids for age 45-75 10/23/2029 10/23/2024, 05/05/2023, 04/06/2022, Additional history exists Colonoscopy through age 75 06/24/203206/24, 06/23/2022, 06/23/2022, Additional history exists Tetanus booster 05/05/2033 05/05/2023, 05/04, 05/08/2004 HIV for age 15-65 Completed 05/05/2023 Hepatitis C screening for ag e 18-79 Completed 05/05/2023 Procedures Procedure Name Priority Date/Time Associated Diagnosis Comments BASIC METABOLIC PANEL Routine 04/23/2025 3:26 PM CDT HTN (hypertension) LIPID PANEL W REFLEX MEASURED LDL Routine 10/23/2024 3:24 PM FRUIT COORDINATOR Mixed hyperlipidemia LC HIV-1/O/2, 4TH GENERATION Routine 05/05/2023 3:16 PM CDT Screening for HIV (human immunodeficiency virus) LC HCV ANTIBODY RFX TO QUANT PCR Routine 05/05/2023 3:16 PM CDT Need for hepatitis C screening test COLONOSCOPY SCREENING Routine 06/23/2022 7:51 AM CDT Screening for colon cancer from Last 3 Months or Most Recently Relevant to Health Maintenance Results * BASIC METABOLIC PANEL (04/23/2025 3:26 PM CDT) GLUCOSE 92 65 - 99 mg/dL [facility] Comment: Fasting reference interval UREA NITROGEN (BUN) 14 7 - 25 mg/dL [facility] CREATININE 0.93 0.70 - 1.30 mg/dL [facility] EGFR 95 > OR = 60 mL/min/1. 73m2 [facility] BUN/CREATININE RATIO SEE NOTE: 6 - 22 (calc) [facility] Comment: Not Reported: BUN and Creatinine are within reference range. SODIUM 141 135 - 146 mmol/L [facility] POTASSIUM 4.1 3.5 - 5.3 mmol/L [facility] CHLORIDE 106 98 - 110 mmol/L [facility] CARBON DIOXIDE 25 20 - 32 mmol/L [facility] ELECTROLYTE BALANCE 10 7 - 17 mmol/L (calc) [facility] CALCIUM 9.2 8.6 - 10.3 mg/dL [facility] Blood BLOOD SPECIMEN / Unknown 04/23/2025 3:26 PM CDT 04/23/2025 3:27 PM CDT us Glo [facility] Final Resu lt [facility] [address] [place] [address], [facility] [address] [place] [address] * (ABNORMAL) LIPID PANEL W REFLEX MEASURED LDL (10/23/2024 3:24 PM FRUIT COORDINATOR) CHOLESTEROL, TOTAL 213(H) <200 mg/dL [facility] HDL CHOLESTEROL 36(L) > OR = 40 mg/dL [facility] TRIGLYCERIDES 390(H) <150 mg/dL [facility] Comment: If a non-fasting specimen was collected, consider repeat triglyceride testing on a fasting specimen if clinically indicated. Felicity et al. J. of Clin. Lipidol. 2015;9:129-169. LDL-CHOLESTEROL 121(H) mg/dL (calc) [facility] Comment: Reference range: <100 Desirable range <100 mg/dL for primary prevention; <70 mg/dL for patients with CHD or diabetic patients with > or = 2 CHD risk factors. LDL-C is now calculated using the Willard-Burgos calculation, which is a validated novel method providing better accuracy than the Friedewald equation in the estimation of LDL-C. Willard SS et al. JAMES. 2013;310(19): 0642-8896 (http://education.[employer]/faq/QUA713) CHOL/HDLC RATIO 5.9(H) <5.0 (calc) [facility] NON HDL CHOLESTEROL 177(H) <130 mg/dL (calc) [facility] Comment: For patients with diabetes plus 1 major ASCVD risk factor, treating to a non-HDL-C goal of <100 mg/dL (LDL-C of <70 mg/dL) is considered a therapeutic option. Blood BLOOD SPECIMEN / Unknown 10/23/2024 3:24 PM FRUIT COORDINATOR 10/23/2024 3:24 PM FRUIT COORDINATOR Glo [facility] Final Resu lt [facility] [address] [place] [address], [facility] [address] [place] [address] * LC HCV ANTIBODY RFX TO QUANT PCR (05/05/2023 3:16 PM CDT) HCV Ab Non Reactive Non Reactive 05/08/2023 7:07 AM CDT [facility] ([facility]) Blood BLOOD SPECIMEN / Unknown Venipuncture / Unknown 05/05/2023 3:16 PM CDT 05/05/2023 3:17 PM CDT Narrative [facility] ([facility]) - 05/08/2023 7:07 AM CDT Performed at: [address] [place] [id number] Pbx Manager: Will Bautista MD, Phone: [phone] Gl[facility] Final Resu lt [facility] ([facility]) [address] [place] [address], * LC HIV-1/O/2, 4TH GENERATION (05/05/2023 3:16 PM CDT) HIV Scr 4th Gen Non Reactive Non Reactive 05/08/2023 7:07 AM CDT [facility] Comment: HIV Negative HIV-1/HIV-2 antibodies and HIV-1 p24 antigen were NOT detected. There is no laboratory evidence of HIV infection. Blood BLOOD SPECIMEN / Unknown Venipuncture / Unknown 05/05/2023 3:16 PM CDT 05/05/2023 3:17 PM CDT Narrative [facility] ([facility]) - 05/08/2023 7:07 AM CDT Performed at: [address] [place] [id number] Pbx Manager: Will Bautista MD, Phone: [phone] us Glo [facility] Final Resu lt [facility] ([facility]) [address] [place] [address], [place] * COLONOSCOPY (06/23/2022 7:37 AM CDT) [...] 7:37 AM Procedure Code(s): --- Professional --- 05144, Colonoscopy, flexible; diagnostic, including collection of specimen(s) bybrushing or washing, when performed (separateprocedure) Diagnosis Code(s): --- Professional --- Z12.11, Encounter for screening formalignant neoplasm of colon K57.30, Diverticulosis of large intestine without perforation or abscess withoutbleeding CPT copyright 2020 [employer]. All rights reserved. The codes documented in this report are preliminary and upon environmental science program director reviewmay be revised to meet current compliance requirements. Scope In: 8:35:54 AM Scope Withdrawal Time 0 hours 7 minutes 43 seconds Scope Out: 8:48:27 AM us Willard Matos MD PROCEDURE ORD Final Res ult from Last 3 Months or Most Recently Relevant to Health Maintenance Insurance BLUE CROSS OF NON-[place] [employer] CHOICE WORKERS COMP Advance Directives Documents on File Type Date Recorded Patient Advisor Consultant Expl anation Healthcare Directive 08/02/2023 023 * [...] 3:14 PM 08/09/2006 4:19 PM Care Teams Ham Facer Relationship Specialty Start Date End Date Glo Slaughter PA [address] [place] [address] PCP - General Physician [employer] 05/07/23
--- OUTSIDE RECORDS SUMMARY | 2025-04-27 17:14 | XMS_ITS | Data Portability ---
Author Organization [facility], [facility] Address [address] [place] [address] Care Team Providers Care Food Service Aide Name Role Phone ISRRAEL BROWN Primary Care Provider [phone] ISRRAEL BROWN Referring Provider Assessment Encounter Date Assessment Date Assessment LastModified by Organization Details LastModified Time 10/04/2023 10/04/2023 58 year old male with history of prostate cancer who is now s/p radical prostatectomy with Dr. Freeman on 09/16/2023 [email or web address] Not available 10/04/2023 15:34:41 12/26/2023 12/26/2023 58 year old male with history of prostate cancer who is now s/p radical prostatectomy with Dr. Freeman on 09/16/2023 [email or web address] Not available 12/26/2023 15:33:32 Plan of Treatment Reminders Order Date Submit Date Provider Last Modified By Organization Details Last Modified Time Details Appointments None recorded. Lab PSA, total, serum or plasma 2023 [facility], [address] [facility] [place], [address], 08:01:10 PSA, total, serum or plasma 2023 024 [facility], [address] [facility] [place], [address], 10:45:28 PSA, total, serum or plasma 2023 024 [facility], [address] [place] [address], [address], 17:17:39 Referral None recorded. Procedures None recorded. Surgeries None recorded. Imaging None recorded. Medication Orders tadalafil 5 mg tablet 2024 025 [id number], [address] [place] [address], [id number], 16:17:43 tadalafil 5 mg tablet 2023 024 [facility] [place] [address], [place], [place], [address] [place] [address], [address], 13:48:59 tadalafil 5 mg tablet 2023 024 [facility] [place], [place] [address], [address] [place] [address], [id number], 13:48:59 tadalafil 5 mg tablet 2023 024 [id number], [address] [place] [address], [id number], 13:48:59 Patient TargetsNo targets recorded. Patient Instructions Encounter Date Encounter Id Patient Instructions Last Modified By Organization Details Last Modified Time 10/04/2023 [id number] Hx of prostate cancer: He will keep his appointments as previously scheduled I will see him back in 3 months with his first PSA nick Not available 10/04/2023 15:36:29 11/18/2023 [id number] 58 y/o male presents for a EMMANUEL [...] GERD, and priapism. Not available 11/18/2023 16:09:26 12/26/2023 [id number] Prostate cancer: - Will check is PSA [...] congestion, visual changes, myalgia and light headedness. [email or web address] Not available 12/26/2023 15:35:56 04/24/2024 [id number] 59 y/o male presents for a EMMANUEL follow up Urinary incontinence - Continue kegel exercises daily. Discussed pelvic floor physical therapy, but he is not interested at this time. ED - Good recovery in erectile function. Continue tadalafil 5 mg daily. Stimulate semiregularly to maintain healthy penile tissue. Okay to discontinue vacuum erection device due to recovery and erectile function. Not available 04/24/2024 16:16:54 10/30/2024 [id number] 59 y/o male presents for a EMMANUEL follow up Urinary incontinence - Continue kegel exercises daily. Discussed pelvic floor physical therapy, but he is not interested at this time. ED - Good recovery in erectile function. Stimulate semi-regularly to maintain healthy penile tissue. PSA remains undetectable. Continue PSA labs every 3 months. Not available 10/30/2024 16:18:14 Reason for Referral None Reported. Results Created Date Observation Date Name Description Value Unit Range Abnormal Flag Note LastModifiedBy Organization Detail LastModifiedTime Result Notes None recorded. Problems Name Problem SNOMED Code Status Onset Date Resolution Date Notes Provider Name and Address Organization Details Recorded Time Essential hypertension [id number] Active Garry Newman [place], [place] - [facility] 14:53:57 Problem Notes None recorded. Procedures Surgical History Date Name Laterality Status Provider Name and Address Organization Details Recorded Time 09/27/20 23 Catheter Removal completed Rosy Herreradwin [facility] 09/27/2023 12:11:48 06/13/20 23 Prostate Biopsy Procedure completed Alistair Freeman MD [address] [place] [address],[address], [place], [address], [facility] 06/16/2023 15:24:42 06/13/20 23 URONAV completed Alistair Freeman MD [address] [place] [address],[address], [place], [address], [facility] 06/16/2023 15:24:47 06/13/20 23 Rocephin/Ceftri axone completed Harrisonroberto Kang [facility] 06/13/2023 14:05:53 06/13/20 23 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/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/PSA RESULTS completed Harrison De Pazan [facility] 06/13/2023 14:05:07 12/02/19 23 Diagnostic colonoscopy completed [...] taking Not Available Not Available Not Available amoxicill in 875 mg-potass ium clavulana te 125 mg tablet TAKE 1 TABLET BY MOUTH TWICE DAILY active Not Available Not Available No t Available oxycodone 5 mg tablet 10/04 completed [...] Not Available Not Available No t Available Eliquis 5 mg tablet TAKE 1 TABLET BY MOUTH TWICE DAILY active HN: Patient reports no longer taking Not Available Not Available Not Available Vitals Date Recorded Body height Body mass index (BMI) Body weight Provider Name and Address Organization Details Last Updated DateTime 10/04/2023 177.8 cm 42.3 kg/m2 525650.75 g Bebe Smith [facility] 10/04/2023 15:04:40 Date Recorded Body height Body mass index (BMI) Body weight Provider Name and Address Organization Details Last Updated DateTime 11/18/2023 177.8 cm 42.3 kg/m2 165923.75 g Garry Newman [facility] 11/18/2023 14:53:02 Date Recorded Body height Provider Name an d Address Organization Details Last Updated DateTime 12/26/2023 177.8 cm Bebe Smith [facility] 12/26/2023 15:10:58 Date Recorded Body height Body mass index (BMI) Body weight Provider Name and Address Organization Details Last Updated DateTime 04/24/2024 177.8 cm 42.3 kg/m2 805968.75 g Bryon Avendaño [place] - [facility] 04/24/2024 15:51:03 Social History Question Answer Notes LastModified by [employer] Details LastModified Time Tobacco Smoking Status Never Smoker Not Available Health Note 10/27/2024 13:48:57 Do You Have An Advance Directive? No [email or web address] Information not available 10/27/2024 What Is Your Level Of Caffeine Consumption? Moderate [email or web address] Information not available 10/27/2024 How Much Tobacco Do You Chew? None [email or web address] Information not available 10/27/2024 Do You Have A Medical Power Of Consultant Intern? Yes [email or web address] Information not available 10/27/2024 What Was The Date Of Your Most Recent Tobacco Screening? 10/30/2024 [email or web address] Information not available 10/27/2024 What Is Your Relationship Status? Single [email or web address] Information not available 10/27/2024 Are You Sexually Active? No [email or web address] Information not available 10/27/2024 Has Tobacco Cessation Counseling Been Provided? No [email or web address] Information not available 04/24/2024 On What Date Was Tobacco Cessation Counseling Provided? 12/26/2023 Information not available 12/26/2023 How Many Days In The Past Year Have You Consumed 5 Or More Drinks? 0 [email or web address] Information no t available 10/27/2024 Sex: Unknown Functional Status Question Answer Note LastModified by [employer] ion Details LastModified Time Do you use any illicit or recreational drugs? No [email or web address] Information not available 10/27/2024 Do you or have you ever used any other forms of tobacco or nicotine? No Information not available 06/13/2023 What is your level of alcohol consumption? NONE [email or web address] Information not available 10/27/2024 Do you or have you ever used smokeless tobacco? Never used smokeless tobacco [email or web address] Information not available 10/27/2024 Do you or have you ever used e-cigarettes or vape? Never used electronic cigarettes [email or web address] Information not available 10/27/2024 Mental Status None recorded. Family History Relationship Description Onset Age of this Age Resolved Age Notes LastModified by Organization Details LastModified Time Father No current problems or disability Not available 12/25 15:12:11 Mother No current problems or disability Not available 12/25 15:12:12 Medical History Condition Response Other N High Blood Pressure Y Kidney Stones N Lung Disease N Depression N GERD/Acid Reflux N Sexually Transmitted Infection N Cancer N High Cholesterol Y Diabetes N Bleeding Disorder N Heart Disease N Immunizations Vaccine Type Date Status Note Provider Nam e and Address Organization Details Recorded Time Influenza, split virus, quadrivalent, preservative 6 completed Kanu Ruud null, [facility] 06/13/2023 15:27:22 Influenza, MDCK, quadrivalent, PF 0 [facility] 15:27:22 Influenza, MDCK, quadrivalent, PF 9 completed [facility] 15:27:22 Tdap 3 [facility] 15:27:22 Tdap 3 completed Kanu Ruud null, [facility] 06/13/2023 15:27:22 Influenza, split virus, trivalent, preservative 7 [facility] 15:27:22 Influenza, split virus, trivalent, preservative 8 completed [facility] 15:27:22 Influenza, split virus, trivalent, preservative 1 completed [facility] 15:27:22 Influenza, split virus, trivalent, preservative 0 completed [facility] 15:27:22 Influenza, split virus, trivalent, preservative 2 completed Kanu Burgosud null, [facility] 06/13/2023 15:27:22 Influenza, split virus, trivalent, preservative 4 completed Kanu wilkins, [facility] 06/13/2023 15:27:22 Influenza, split virus, trivalent, PF 7 completed Kanu wilkins, [facility] 06/13/2023 15:27:22 Td (adult), 2 Lf tetanus toxoid, preservative free, adsorbed 4 completed Kanu wilkins, [facility] 06/13/2023 15:27:22 Influenza, split virus, quadrivalent, PF 8 completed Kanu wilkins, [facility] 06/13/2023 15:27:22 Past Encounters Encounter ID Performer Location Encounter Start Date Encounter Closed Date Diagnosis/Indication Diagnosis SNOMED-CT Code Diagnosis ICD10 Code Diagnosis Note [id number] MD Jonny Uribe [address] [place] [phone] 06/13/2023 13:56:59 06/13/2023 14:06:46 Prostate specific antigen above reference range 353301256 R97.20 [id number] MD Jonny Uribe [address] [place] [phone] 06/13/2023 14:00:07 06/16/2023 13:30:03 Prostate specific antigen above reference range 386683464 R97.20 trus biopsy done w/o compc [id number] MD Micheal UribeJosiah [address] [phone] 06/20/2023 13:01:44 06/20/2023 13:38:50 Malignant neoplasm of prostate 737184523 C61 young patient w high volume ramirez 7 disease. 4+3=7discu ssed all options including --1. active surveillan ce2. radical prostatect omy3. radiation discussed all r/b/a to all treatment options.we discussed incontinen ce, ED, and other surgical complicait ons. discussed radiatio at length as well and possible complicati ons HE WOULD LIKE TO SEE DR. PAVON TO DISCUSS RADIATION OPTION AND THINK ABOUT IT MORE. [id number] MD Jonny Uribe [address] [place] [address],[facility] e [address] [place] [phone] 07/04/2023 10:47:36 07/04/2023 11:29:12 Carcinoma of prostate 503299794 C61 PATIENT W HIGH VOLUME AND HIGH RISK DISEASE. GIVEN HIS his young age, surgery is certainly a reasonable optiion see HPI - 10 min spent [id number] MD Andria [facility] [address] [place] [phone] 09/27/2023 11:26:14 09/27/2023 12:21:58 Malignant neoplasm of prostate 145697907 C61 [id number] ART Randall [facility] [address] [place] [id number] 10/04/2023 14:55:06 10/04/2023 15:59:16 History of malignant neoplasm of prostate 630054310 Z85.46 [id number] DUY GOMEZ [facility] [address] [place] [address] [place] [phone] 11/18/2023 14:52:31 11/18/2023 16:56:33 Erectile dysfunction following radical prostatectomy 9885114731 19101 N52.31 Male urina ry stress incontinence 497656109 N39.3 [id number] ART Randall [facility] [address] [place] [id number] 12/26/2023 15:09:44 12/26/2023 15:48:00 Erectile dysfunction following radical prostatectomy 1956187409 N52.31 Male urina ry stress incontinence 126225202 N39.3 History of malignant neoplasm of prostate 061816575 Z85.46 [id number] DUY GOMEZ [facility] [address] [place] [id number] 04/24/2024 15:50:06 04/24/2024 16:21:02 Erectile dysfunction following radical prostatectomy 5015382730 19101 N52.31 Male urina ry stress incontinence 595744343 N39.3 [id number] DUY GOMEZ [facility] [address] [facility],[address] [place] [address] 10/30/2024 16:13:29 10/30/2024 16:41:22 Erectile dysfunction following radical prostatectomy 6002083489 30515 N52.31 Male urina ry stress incontinence 068992567 N39.3 Malignant neoplasm of prostate 690994678 C61 Health Concerns Section Related Observation LastModified by Organization Detai ls LastModified Time None Recorded Concern Status LastModified by Organization Details LastModified Time None Recorded Advance Directives Directive N: Payers Insurance Date Sequence Insurance Name Policy Number Policy Garcia Covered Member ID Garcia Member ID Guarantor Name 11/12/2024 1 [place] [id number] Henok Sol [id number] Henok Sol 10/05/2023 1 [facility] [id number] Henok Sol [id number] Henok Sol Notes Date Note Type Note Provider Name and Address Organization Details Recorded Time 4 text/html 58 year old male with history of prostate cancer who is now s/p radical prostatectomy with Dr. Freeman on 09/16/2023 He underwent radical prostatectomy with Dr. Freeman on 09/16/2023His surgical pathology revealed Bath 4+3 = 7 disease.His surgical margins were positive, 1 [id number], grade group 3 ART John [address] [facility],[address], [place], [address], [facility] 10/04/2023 15:36:38 4 text/html IncontinenceReported by PatientPatient presents for a urinary incontinence evaluation s/p prostatectomy. No issues with urinary incontinence prior to surgery.Currently, he reports urinary incontinence with bending at the waist, lifting objects and passing gas. He is wearing 5-6 pads daily for incontinence. He is completing kegel exercises daily. Erectile DysfunctionReported by PatientPatient presents for a EMMANUEL evaluation. He was able to achieve an ehs of 3-4 with adequate maintenance prior to surgery (no need for PDE-5 inhibitors).Currently, he has not attempted stimulation since surgery. He is not taking any PDE-5 inhibitors. He is using the vacuum erection device 2x a week. Full erection in the device.ROS as noted in the HPI RRP completed on 09/16/[address] Freeman. [...] facilitate and coordinate their care. ODIN KIRBY, [address], [place], [address], [facility] 11/18/2023 16:09:37 4 text/html 58 year old male with history of prostate cancer who is now s/p radical prostatectomy with Dr. Freeman on 09/16/2023 He underwent radical prostatectomy with Dr. Freeman on 09/16/2023His surgical pathology revealed Ramirez 4+3 = 7 disease.His surgical margins were positive, 1 [id number], grade group 3 His first post-operative PSA is <0.02 ng/mL (12/22/2023) He continues to have urinary leakage and erectile dysfunctionHe had seen Odin Kirby PA-C in November [...] pharmacy database to facilitate and coordinate their care.VIDEO visit lasting 5 minutes ART John [address] [place] [address],[address], [address], [facility] 12/26/2023 15:37:58 4 text/html IncontinenceReported by PatientPatient presents for a urinary incontinence follow up s/p prostatectomy. Steady improvement in urinary incontinence since last visit. He is completing kegel exercises daily. He did not pursue pelvic floor physical therapy as instructed previously. He reports urinary incontinence with bending at the waist and lifting objects. He is wearing 2 pads daily for incontinence. Erectile DysfunctionReported by PatientPatient presents for a EMMANUEL follow up. Good recovery in erectile function since last visit. He is taking tadalafil 5 mg daily. No side effects noted. Patient is able to achieve an EH S of 3-4 with adequate maintenance when taking tadalafil. No penile pain or curvature with erections. He has discontinued his vacuum erection device.ROS as noted in the HPI RRP completed on 09/16/[address] Freeman. [...] facilitate and coordinate their care. DUY GOMEZ [address] [place] [address],[address], [address], [facility] 04/24/2024 16:17:12 5 text/html IncontinenceReported by PatientPatient presents for a urinary incontinence follow up s/p prostatectomy. Stable urinary incontinence since last visit. He is completing kegel exercises daily. He is wearing 2 pads daily for urinary incontinence due to bending at the waist and lifting objects. Patient is only mildly bothered by current severity of urinary incontinence. Erectile DysfunctionReported by PatientPatient presents for a EMMANUEL follow up. Good recovery in erectile function since last visit. Discontinued Tadalafil. Patient is able to achieve an EHS of 3-4 with adequate maintenance. No penile pain or curvature with erections. He has discontinued his vacuum erection device. He did find Tadalafil helped with ease of obtaining an erection.ROS as noted in the HPI RRP completed on 09/16/[address] Freeman. Bilateral nerve sparing. PSA undetectable (<0.04). Prior to conducting our video visit, the [...] facilitate and coordinate their care. ODIN KIRBY, [address], [place], [address], [facility] 10/30/2024 16:18:23
--- NOTE | 2025-04-27 18:10 | ED.GENADULT ---
HPI - General Adult General Chief complaint: Arrhythmia/Palpitations <Edvin Thrasher MD - Last Filed: 05/02/25 11:02> Stated complaint: In A-fib <Edvin Thrasher MD - Last Filed: 05/02/25 11:02> Time Seen by Provider: 04/27/25 17:14 <Edvin Thrasher MD - Last Filed: 05/02/25 11:02> History of Present Illness HPI narrative: Patient reports feeling palpitations and shortness of breath while at a meal at 3 :30 PM today. Has been in a?fib previous but was taken off Eliquis. Does take BID Metoprolol. 60-year-old man presenting to the emergency department with recurrent atrial fibrillation. He tends to be symptomatic with these occurrences. Was treated here in this emergency department approximately a year ago by myself for AFib with RVR and cardioverted. Was on brief course of Eliquis at that point. Is no longer anticoagulated. Continues to take metoprolol. Was at rest with onset of palpitations and sense of lightheadedness this afternoon around 4 hours prior to presentation. Feels essentially similar. Is not short of breath really at least while lying in the bed. No chest pain or pressure. Some feeling of lightheadedness however. Echocardiogram following last cardioversion was overall reassuring. Aortic root however measured 3.9 cm. Follow-up plan apparently per his report by Cardiology was to consider another attempt at ablation but this has not been finalized yet. No alcohol consumption. Due to hypertension would measure chads Vasc score at 1 <Edvin Thrasher MD - Last Filed: 05/02/25 11:02> Related Data Home medications: Home Medications ?Medication ?Instructions ?Recorded ?Confirmed lisinopril 20 1 tab PO DAILY 09/22/23 08/12/24 mg-hydrochlorothiazide 25 mg tablet metoprolol succinate 25 mg 25 mg PO DAILY 09/22/23 08/12/24 tablet,extended release 24 hr tadalafil 5 mg tablet 5 mg PO DAILY 03/02/24 08/12/24 lisinopril 40 mg tablet 40 mg PO DAILY 04/27/25 04/27/25 metoprolol tartrate 50 mg tablet 50 mg PO BID 04/27/25 04/27/25 Previous Rx's ?Medication ?Instructions ?Recorded apixaban 5 mg tablet (Eliquis) 5 mg PO BID #60 tabs 03/02/24 amoxicillin 875 mg-potassium 1 tab PO BID #10 tabs 08/12/24 clavulanate 125 mg tablet apixaban 5 mg tablet (Eliquis) 5 mg PO BID #60 tabs 04/27/25 <Edvin Thrasher MD - Last Filed: 05/02/25 11:02> Allergies/adverse reactions: Allergies Allergy/AdvReac Type Severity Reaction Status Date / Time No Known Drug Allergies Allergy Verified 08/12/24 09:33 <Edvin Thrasher MD - Last Filed: 05/02/25 11:02> Review of Systems Status of ROS: Reports: 6 or more systems reviewed and unremarkable except as noted in History and below <Edvin Thrasher MD - Last Filed: 05/02/25 11:02> [facility] Medical History: Medical History Atrial fibrillation with rapid ventricular response ?I48.91 - Unspecified atrial fibrillation (ICD-10) Paroxysmal SVT (supraventricular tachycardia) ?I47.10 - Supraventricular tachycardia, unspecified (ICD-10) History of cardioversion ?Z92.89 - Personal history of other medical treatment (ICD-10) Sleep apnea ?G47.30 - Sleep apnea, unspecified (ICD-10) Umbilical hernia without obstruction and without gangrene ?K42.9 - Umbilical hernia without obstruction or gangrene (ICD-10) Spondylosis, lumbosacral ?M47.817 - Spondylosis without myelopathy or radiculopathy, lumbosacral region (ICD-10) Prostate cancer ?C61 - Malignant neoplasm of prostate (ICD-10) Prediabetes ?R73.03 - Prediabetes (ICD-10) Pneumonia due to COVID-19 virus ?U07.1 - COVID-19 (ICD-10) ?J12.82 - Pneumonia due to coronavirus disease 2019 (ICD-10) Obesity, unspecified ?E66.9 - Obesity, unspecified (ICD-10) Hyperlipidemia, mixed ?E78.2 - Mixed hyperlipidemia (ICD-10) Cervical disc displacement ?M50.20 - Other cervical disc displacement, unspecified cervical region (ICD-10) Colon polyp ?K63.5 - Polyp of colon (ICD-10) Kidney stone ?N20.0 - Calculus of kidney (ICD-10) Hypertension ?I10 - Essential (primary) hypertension (ICD-10) Atrial fibrillation ?I48.91 - Unspecified atrial fibrillation (ICD-10) <Edvin Thrasher MD - Last Filed: 05/02/25 11:02> Surgical History: Surgical History History of testicular surgery ?Z98.890 - Other specified postprocedural states (ICD-10) History of colonoscopy ?Z98.890 - Other specified postprocedural states (ICD-10) History of cervical discectomy ?Z98.890 - Other specified postprocedural states (ICD-10) History of prostatectomy ?Z90.79 - Acquired absence of other genital organ(s) (ICD-10) S/P ablation of atrial fibrillation ?Z98.890 - Other specified postprocedural states (ICD-10) ?Z86.79 - Personal history of other diseases of the circulatory system (ICD-10) <Edvin Thrasher MD - Last Filed: 05/02/25 11:02> Social History: Social History Smoking Status: Never smoker Second hand tobacco smoke exposure: No How often do you have a drink containing alcohol: monthly or less AUDIT-C Alcohol total score: 1 Non-prescribed substance use: denies use <Edvin Thrasher MD - Last Filed: 05/02/25 11:02> Exam Narrative: Exam Narrative: Pleasant. NAD. Seems a little tired. Cranial nerves 2-12 intact. Breathing easily. Heart in elevated rate and irregularly irregular rhythm. Distant. Lungs appear clear. Abdomen is overweight soft. Lower extremities with trace pretibial edema. Well-perfused. Able to visualize posterior oropharynx easily. <Edvin Thrasher MD - Last Filed: 05/02/25 11:02> Const: Vital Signs, click to edit/add: Vital Signs - 24 hr 04/27/25 17:12 04/27/25 17:41 04/27/25 17:59 Temperature 98.2 F Pulse Rate 83 Pulse Rate [Pulse Oximeter] 86 Respiratory Rate 22 19 Blood Pressure Blood Pressure [Ri ght Upper Arm] 160/104 H Pulse Oximetry 94 96 94 Oxygen Delivery Me thod Room Air Oxygen Flow Rate 04/27/25 18:00 04/27/25 18:15 04/27/25 18:22 Temperature Pulse Rate 155 H 90 89 Pulse Rate [Pulse Oximeter] Respiratory Rate 18 14 16 Blood Pressure 128/100 H Blood Pressure [Ri ght Upper Arm] Pulse Oximetry 93 95 95 Oxygen Delivery Me thod Oxygen Flow Rate 04/27/25 18:23 04/27/25 18:30 04/27/25 18:32 Temperature Pulse Rate 84 73 72 Pulse Rate [Pulse Oximeter] Respiratory Rate 14 13 19 Blood Pressure 125/85 Blood Pressure [Ri ght Upper Arm] Pulse Oximetry 95 94 93 Oxygen Delivery Me thod Oxygen Flow Rate 04/27/25 18:33 04/27/25 18:45 04/27/25 19:11 Temperature Pulse Rate 71 76 Pulse Rate [Pulse Oximeter] Respiratory Rate 20 15 Blood Pressure Blood Pressure [Ri ght Upper Arm] Pulse Oximetry 94 94 96 Oxygen Delivery Me thod Oxygen Flow Rate 04/27/25 19:11 04/27/25 19:15 04/27/25 19:30 Temperature Pulse Rate 80 71 Pulse Rate [Pulse Oximeter] Respiratory Rate 18 20 17 Blood Pressure Blood Pressure [Ri ght Upper Arm] Pulse Oximetry 94 95 Oxygen Delivery Me thod Oxygen Flow Rate 04/27/25 19:31 04/27/25 19:45 04/27/25 19:47 Temperature Pulse Rate 86 78 79 Pulse Rate [Pulse Oximeter] Respiratory Rate 17 18 18 Blood Pressure 147/89 H 150/96 H Blood Pressure [Ri ght Upper Arm] Pulse Oximetry 95 97 98 Oxygen Delivery Me thod Oxygen Flow Rate 04/27/25 19:55 04/27/25 19:59 04/27/25 19:59 Temperature Pulse Rate 81 Pulse Rate [Pulse Oximeter] 78 Respiratory Rate 17 16 Blood Pressure 139/85 Blood Pressure [Ri ght Upper Arm] 135/85 Pulse Oximetry 96 97 96 Oxygen Delivery Me thod Nasal Cannula Room Air Oxygen Flow Rate 2 <Edvin Thrasher MD - Last Filed: 05/02/25 11:02> Vital Signs, click to edit/add: Vital Signs - 24 hr 04/27/25 17:12 04/27/25 17:41 04/27/25 17:59 Temperature 98.2 F Pulse Rate 83 Pulse Rate [Pulse Oximeter] 86 Respiratory Rate 22 19 Blood Pressure Blood Pressure [Ri ght Upper Arm] 160/104 H Pulse Oximetry 94 96 94 Oxygen Delivery Me thod Room Air Oxygen Flow Rate 04/27/25 18:00 04/27/25 18:15 04/27/25 18:22 Temperature Pulse Rate 155 H 90 89 Pulse Rate [Pulse Oximeter] Respiratory Rate 18 14 16 Blood Pressure 128/100 H Blood Pressure [Ri ght Upper Arm] Pulse Oximetry 93 95 95 Oxygen Delivery Me thod Oxygen Flow Rate 04/27/25 18:23 04/27/25 18:30 04/27/25 18:32 Temperature Pulse Rate 84 73 72 Pulse Rate [Pulse Oximeter] Respiratory Rate 14 13 19 Blood Pressure 125/85 Blood Pressure [Ri ght Upper Arm] Pulse Oximetry 95 94 93 Oxygen Delivery Me thod Oxygen Flow Rate 04/27/25 18:33 04/27/25 18:45 04/27/25 19:11 Temperature Pulse Rate 71 76 Pulse Rate [Pulse Oximeter] Respiratory Rate 20 15 Blood Pressure Blood Pressure [Ri ght Upper Arm] Pulse Oximetry 94 94 96 Oxygen Delivery Me thod Oxygen Flow Rate 04/27/25 19:11 04/27/25 19:15 04/27/25 19:30 Temperature Pulse Rate 80 71 Pulse Rate [Pulse Oximeter] Respiratory Rate 18 20 17 Blood Pressure Blood Pressure [Ri ght Upper Arm] Pulse Oximetry 94 95 Oxygen Delivery Me thod Oxygen Flow Rate 04/27/25 19:31 04/27/25 19:45 04/27/25 19:47 Temperature Pulse Rate 86 78 79 Pulse Rate [Pulse Oximeter] Respiratory Rate 17 18 18 Blood Pressure 147/89 H 150/96 H Blood Pressure [Ri ght Upper Arm] Pulse Oximetry 95 97 98 Oxygen Delivery Me thod Oxygen Flow Rate 04/27/25 19:55 04/27/25 19:59 04/27/25 19:59 Temperature Pulse Rate 81 Pulse Rate [Pulse Oximeter] 78 Respiratory Rate 17 16 Blood Pressure 139/85 Blood Pressure [Ri ght Upper Arm] 135/85 Pulse Oximetry 96 97 96 Oxygen Delivery Me thod Nasal Cannula Room Air Oxygen Flow Rate 2 <Glo Fang MD - Last Filed: 04/27/25 20:28> Documenting provider has reviewed patient's vital signs: yes <Edvin Thrasher MD - Last Filed: 05/02/25 11:02> Course Reevaluation(s) Additional Reevaluation(s): I was asked to provide sedation for cardioversion. In discussion with patient, he has had this many times, has tolerated medications without difficulty and has done well with sedation. Consent was obtained by Dr. Thrasher. Patient was maintained on oximetry, end-tidal CO2 and cardiac monitoring. He has tolerated propofol well in the past and this is what is used. He was given 100 mg IV with adequate sedation, cardioverted with 1 shock. No immediate complications. Tolerated well. <Glo Fang MD - Last Filed: 04/27/25 20:28> Vital Signs Vital signs: Initial Vital Signs Pulse Oximetry 94 04/27/25 17:12 Vital Signs Pulse Oximetry 94 04/27/25 17:12 Temperature 98.2 F 04/27/25 17:41 Pulse Rate 78 04/27/25 20:31 Respiratory Rate 18 04/27/25 20:31 Blood Pressure 133/86 04/27/25 20:31 Pulse Oximetry 95 04/27/25 20:31 Oxygen Delivery Method Room Air 04/27/25 19:59 Oxygen Flow Rate 2 04/27/25 19:59 <Edvin Thrasher MD - Last Filed: 05/02/25 11:02> Initial Vital Signs Pulse Oximetry 94 04/27/25 17:12 Vital Signs Pulse Oximetry 94 04/27/25 17:12 Temperature 98.2 F 04/27/25 17:41 Pulse Rate 78 04/27/25 20:31 Respiratory Rate 18 04/27/25 20:31 Blood Pressure 133/86 04/27/25 20:31 Pulse Oximetry 95 04/27/25 20:31 Oxygen Delivery Method Room Air 04/27/25 19:59 Oxygen Flow Rate 2 04/27/25 19:59 <Glo Fang MD - Last Filed: 04/27/25 20:28> Medications Administered Medications: Discontinued Medications Generic Name Dose Route Start Last Admin Trade Name Freq PRN Reason Stop Dose Admin Apixaban 5 mg 04/27/25 20:06 04/27/25 20:26 Apixaban 5 Mg Tablet PO 04/27/25 20:07 5 mg ONCE ONE Administration Diltiazem HCl 20 mg 04/27/25 18:07 04/27/25 18:19 Diltiazem 5 Mg/Ml Inj IVP 04/27/25 18:08 20 mg ONCE ONE Administration Sodium Chloride 1,000 mls @ 1,000 mls/hr 04/27/25 18:07 04/27/25 19:21 0.9 % Sodium Chloride 1000 Ml IV 04/27/25 19:06 Infused .Q1H ONE Infusion Propofol 200 mg 04/27/25 19:44 04/27/25 19:56 Propofol 10 Mg/Ml Inj IVP 04/27/25 19:45 100 mg ONCE ONE Administration <Edvin Thrasher MD - Last Filed: 05/02/25 11:02> Discontinued Medications Generic Name Dose Route Start Last Admin Trade Name Freq PRN Reason Stop Dose Admin Apixaban 5 mg 04/27/25 20:06 04/27/25 20:26 Apixaban 5 Mg Tablet PO 04/27/25 20:07 5 mg ONCE ONE Administration Diltiazem HCl 20 mg 04/27/25 18:07 04/27/25 18:19 Diltiazem 5 Mg/Ml Inj IVP 04/27/25 18:08 20 mg ONCE ONE Administration Sodium Chloride 1,000 mls @ 1,000 mls/hr 04/27/25 18:07 04/27/25 19:21 0.9 % Sodium Chloride 1000 Ml IV 04/27/25 19:06 Infused .Q1H ONE Infusion Propofol 200 mg 04/27/25 19:44 04/27/25 19:56 Propofol 10 Mg/Ml Inj IVP 04/27/25 19:45 100 mg ONCE ONE Administration <Glo Fang MD - Last Filed: 04/27/25 20:28> Medical Decision Making MDM Narrative Medical decision making narrative: Initial EKG reviewed by me shows atrial fibrillation with RVR. Rate of 125. Looks similar to prior with right bundle. Has symptomatic atrial fibrillation and consistent with history. Will initiate IV hydration. Given a dose of diltiazem. Check chemistries. I am anticipating need for cardioversion but he has spontaneously converted in the past. Would be a candidate for cardioversion given certainty of time onset. With treatment as above rate improved. Recheck EKG shows that he continues to be in a rate controlled atrial fibrillation at rate of 82. 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 Informed consent obtained to proceed with cardioversion. See procedural note. Tolerated cardioversion well with 1 shock at 200 joules. Returned to sinus rhythm. No airway difficulties though did assist briefly with jaw thrust/manipulation. Ultimately fully alert and feeling better. Easily ambulatory from the emergency department. Does note that he has a numb/tingly area on his chest from recurrent shocks. Given dose of apixaban in the emergency department prior to departure. See patient discharge plan for further discussion Stay well-hydrated. Please schedule follow-up with your Cardiology Clinic/elementary school music teacher. Initiating treatment with Eliquis for now. Nice to see you. Sorry you had to come back. <Edvin Thrasher MD - Last Filed: 05/02/25 11:02> Medical Records Medical records reviewed: Yes I reviewed the patient's medical records <Edvin Thrasher MD - Last Filed: 05/02/25 11:02> Lab Data Lab results reviewed: Yes I reviewed the patient's lab results <Edvin Thrasher MD - Last Filed: 05/02/25 11:02> Labs: Lab Results 04/27/25 Range/Units 18:07 Hgb 15.2 (13.5-17.5) gm/dL Sodium 140 (135-149) mmol/L Potassium 3.4 L (3.6-5.1) mmol/L Chloride 106 (96-114) mmol/L Carbon Dioxide 28 (20-32) mmol/L Anion Gap 6 L (7-15) mEq/L BUN 14 (7-30) mg/dL Creatinine 0.8 (0.5-1.5) mg/dL Estimated Creat Clear 115.59 Estimated GFR 102 ml/min Glucose 132 H (60-115) mg/dL Calcium 9.1 (8.4-10.6) mg/dL Magnesium 2.3 (1.5-2.6) mg/dL <Edvin Thrasher MD - Last Filed: 05/02/25 11:02> Lab Results 04/27/25 Range/Units 18:07 Hgb 15.2 (13.5-17.5) gm/dL Sodium 140 (135-149) mmol/L Potassium 3.4 L (3.6-5.1) mmol/L Chloride 106 (96-114) mmol/L Carbon Dioxide 28 (20-32) mmol/L Anion Gap 6 L (7-15) mEq/L BUN 14 (7-30) mg/dL Creatinine 0.8 (0.5-1.5) mg/dL Estimated Creat Clear 115.59 Estimated GFR 102 ml/min Glucose 132 H (60-115) mg/dL Calcium 9.1 (8.4-10.6) mg/dL Magnesium 2.3 (1.5-2.6) mg/dL <Glo Fang MD - Last Filed: 04/27/25 20:28> Critical Care Time Critical Care Time Critical Care Time: Yes Attestation: The patient required my highest level preparedness to intervene emergently and I personally spent this critical care time directly and personally managing the patient. This critical care time included: Obtaining a history; Examining the patient; Pulse oximetry; Ordering and reviewing of studies; Arranging urgent treatment with development of a management plan; Evaluation of patients response to treatment; Frequent reassessment discussions with other providers. This critical care time was performed to assess and manage the high probability of imminent life-threatening deterioration that could result in multiorgan failure. It was exclusive of separate billable procedures and treating other patients and teaching time. <Edvin Thrasher MD - Last Filed: 05/02/25 11:02> Total Critical Care Time in Minutes: 50 <Edvin Thrasher MD - Last Filed: 05/02/25 11:02> Discharge Plan Discharge Clinical Impression: Atrial fibrillation with RVR <Edvin Thrasher MD - Last Filed: 05/02/25 11:02> Patient Disposition: Home w/ Parent or Adult <Edvin Thrasher MD - Last Filed: 05/02/25 11:02> Condition: Improved <Edvin Thrasher MD - Last Filed: 05/02/25 11:02> Additional Instructions: Stay well-hydrated. Please schedule follow-up with your Cardiology Clinic/elementary school music teacher. Initiating treatment with Eliquis for now. Nice to see you. Sorry you had to come back. <Edvin Thrasher MD - Last Filed: 05/02/25 11:02> Prescriptions: New Eliquis 5 mg tablet 5 mg PO BID Qty: 60 0RF No Action amoxicillin-pot clavulanate 875-125 mg tablet 1 tab PO BID Qty: 10 0RF lisinopril-hydrochlorothiazide 20-25 mg tablet 1 tab PO DAILY metoprolol succinate 25 mg tablet extended release 24 hr 25 mg PO DAILY metoprolol tartrate 50 mg tablet 50 mg PO BID lisinopril 40 mg tablet 40 mg PO DAILY tadalafil 5 mg tablet 5 mg PO DAILY Eliquis 5 mg tablet 5 mg PO BID Qty: 60 1RF <Edvin Thrashre MD - Last Filed: 05/02/25 11:02> Follow Up/Referrals: Glo Slaughter PA-C [Primary Care Provider, [facility]] <Edvin Thrasher MD - Last Filed: 05/02/25 11:02> [facility] <Edvin Thrasher MD - Last Filed: 05/02/25 11:02> Procedures Procedural Sedation Pre procedure diagnosis: Atrial fibrillation with rapid ventricular response <Edvin Thrasher MD - Last Filed: 05/02/25 11:02> Post procedure diagnosis: Atrial fibrillation with rapid ventricular response <Edvin Thrasher MD - Last Filed: 05/02/25 11:02> Written consent by: patient <Edvin Thrasher MD - Last Filed: 05/02/25 11:02> Verification/time out: correct patient and correct procedure <Edvin Thrasher MD - Last Filed: 05/02/25 11:02> Name of person perfmorming the procedure: Edvin Thrasher <Edvin Thrasher MD - Last Filed: 05/02/25 11:02> Sedation provider same as procedural provider: No <Edvin Thrasher MD - Last Filed: 05/02/25 11:02> Assistants, if any: Dr. Fang, nursing <Edvin Thrasher MD - Last Filed: 05/02/25 11:02> ASA Class: II <Edvin Thrasher MD - Last Filed: 05/02/25 11:02> Mallampati classification: I. soft palate, fauces, uvula, pillars visible <Edvin Thrasher MD - Last Filed: 05/02/25 11:02> Preparation: conveyor monitor applied, pulse oximeter, capnometry used, supplemental O2 applied, reversal agents at bedside, suction/airway equipment at bedside and IV secured <Edvin Thrasher MD - Last Filed: 05/02/25 11:02> IV Propofol dose (mg): 100 <Edvin Thrasher MD - Last Filed: 05/02/25 11:02> Patient Tolerated Procedure: well <Edvin Thrasher MD - Last Filed: 05/02/25 11:02> Interventions: airway repositioned (Slight jaw thrust. Did not significantly desaturate) <Edvin Thrasher MD - Last Filed: 05/02/25 11:02> Additional Procedures Procedure name: Electrical cardioversion <Edvin Thrasher MD - Last Filed: 05/02/25 11:02> Pre procedure diagnosis: Atrial fibrillation with RVR <Edvin Thrasher MD - Last Filed: 05/02/25 11:02> Post procedure diagnosis: Atrial fibrillation with RVR <Edvin Thrasher MD - Last Filed: 05/02/25 11:02> Written consent by: patient <Edvin Thrasher MD - Last Filed: 05/02/25 11:02> Site marking: not applicable <Edvin Thrasher MD - Last Filed: 05/02/25 11:02> Verification/time out: correct patient and correct procedure <Edvin Thrasher MD - Last Filed: 05/02/25 11:02> Conclusion: patient tolerated procedure <Edvin Thrasher MD - Last Filed: 05/02/25 11:02> Additional comments: Synced cardioversion at 200 joules returned to normal sinus <Edvin Thrasher MD - Last Filed: 05/02/25 11:02>
[2025-04-27 18:19] LABS: Hemoglobin* 15.2 gm/dL (13.5-17.5)
[2025-04-27] MEDS: dilTIAZem 5 MG/ML inj 20 MG IVP (18:19)
[2025-04-27 18:31] LABS: Chloride* 106 mmol/L (96-114); Potassium* 3.4 mmol/L (3.6-5.1); Sodium* 140 mmol/L (135-149)
[2025-04-27 18:34] LABS: Anion Gap 6 mEq/L (7-15); Blood Urea Nitrogen* 14 mg/dL (7-30); Calcium* 9.1 mg/dL (8.4-10.6); Carbon Dioxide* 28 mmol/L (20-32); Creatinine* 0.8 mg/dL (0.5-1.5); Est. Creatinine Clearance* 115.59; Estimated Glomerular Filt Rate 102 ml/min; Glucose* 132 mg/dL (60-115)
--- OUTSIDE RECORDS SUMMARY | 2025-04-27 19:16 | XMS_ITS | CCD ---
Author Name Interface, [id number] lity Address [address] [place] [address] [address] [place] [address] [facility] Address [facility] [address] [place] [address] Care Team Providers Care Timber Treating Tank Operator Name Role Phone Collins PALOMO, Abner Alford Unavailable Unavailable Reason for Visit NURSE VISIT 15 MIN Social History Date Name Value 06/28/2022 Sex Male
--- OUTSIDE RECORDS SUMMARY | 2025-04-27 19:16 | XMS_ITS | CCD ---
Author Name Interface, [id number] lity Address [address] [place], [place] [address] [place] [address] [facility] Address [address] [place] [address] Care Team Providers Care Computer Systems Architect Name Role Phone Collins PALOMO, Abner Alford Unavailable Unavailable Reason for Visit Social History
[2025-04-27] MEDS: PROPOFOL 10 MG/ML INJ 200 MG IVP (19:56)
[2025-04-27] MEDS: APIXABAN 5 MG TABLET PO (20:26)
== END 2025-04-27 20:47 | disposition home or self-care (01) ==
PROVIDERS: Emergency Provider Family Medicine; PCP Physician Assistant
DX: I48.20 Chronic atrial fibrillation, unspecified (principal)
CPT/HCPCS: 92960; 36415; 80048; 83735; 85018; 93005; 94761; 99152; 99284; 99291; A9270; J2704; J7030

== ENCOUNTER 2025-07-14 05:40 | Emergency (ER) | payer BC, SELFPAY ==
[2025-07-14] VITALS (39 sets, daily range): BP systolic 110–172; BP diastolic 68–103; PULSE 66–98; RESP 12–20; TEMP 36.9; O2SAT 93–99; BMI 46.4
--- OUTSIDE RECORDS SUMMARY | 2025-07-14 05:41 | XMS_ITS | Clinical Summary ---
Author Organization [facility] [facility] Address [address] [place] [address] Care Team Providers Care Blister Pack Operator Name Role Phone Glo Slaughter Primary Care Provider [phone] Allergies No known active allergies Medications Lactobacillus acidophilus (PROBIOTIC ORAL) Take by mouth once daily. Active metoprolol tartrate (LOPRESSOR) 50 mg tabletIndications :HTN (hypertension) Take 1 Tablet (50 mg) by mouth two times daily. 180 Tablet 3 5 Active magnesium 250 mg tab Take 1 Tablet (250 mg) by mouth once daily. 5 Active buPROPion 150 mg Extended-Release tabletIndications :Class 3 severe obesity with body mass index (BMI) of 45.0 to 49.9 in adult (HC) Take 1 Tablet (150 mg) by mouth once daily in the morning. 90 Tablet 3 5 Active lisinopriL (PRINIVIL; ZESTRIL) 40 mg tabletIndications :Essential hypertension Take 1 Tablet (40 mg) by mouth once daily. 90 Tablet 3 5 Active CPAPIndications:O SA (obstructive sleep apnea) RESMED CPAP (E0601) machine for home use at pressure: 8-15cmw, Choice of mask (A7030 or A7034) w/full face cushion (A7031) x1/mo, nasal cushion (A7032) x2/mo, or nasal pillows (A7033) x 2/mo; Length of Need: 99 months; Frequency of use: Daily 1 Each 11 23/202 5 Active Active Problems Problem Noted Date Diagnosed [...] 04/24/2025 9:30 AM CDT Office Visit [facility] [address] [facility] [place] [address] Edward Klein MD Sleep Follow-up 04/23/2025 3:15 PM CDT Orders Only [facility] [address] [place] [address] Lab, [place] [facility] 04/23/2025 Travel 04/16/2025 2:50 PM CDT Nurse/Clinic Staff Only [facility] [address] [place] [address] Blood Pressure (156/82) 04/16/2025 Telephone [facility] [address] [place] [address] [address] Glo Slaughter PA Blood Pressure 04/16/2025 Travel from Last 3 Months Immunizations Immunization [...] on file Legal Sex Male 6:38 AM 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 Gender Identity Not on file Sexual Orientation Straight 12/30/2021 7: 33 AM CDT 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 Not on file Not on file Obstetrics History Last Filed Vital Signs Vital Sign Reading Time Taken Comments Blood Pressure 184/113 04/24/2025 9:37 AM CDT Pulse 78 04/24/2025 9:33 AM CDT Temperature 37.1 C (98.7 F) 09/24/2023 1:34 PM 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 Respiratory Rate 18 09/24/2023 1:34 PM 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 Oxygen Saturation 96% 04/24/2025 9:33 AM CDT [...] (1 of 2) 02/26/2016 COVID-19 vaccine series (1 - season) 2025 Influenza Vaccine (#1) 2025 0, 07/02/2020, 07/04/2019, Additional history exists Depression screening for age 12+ 03/26/2026 03/26/2025, 05/05/2023, 04/06/2022, Additional history exists BMI (ht and wt on same day) for age 18+ 04/24/2026 04/24/2025, 10/23/2024, 04/02/2024, Additional history exists Lipids for age 45-75 10/23/2029 10/23/2024, 05/05/2023, 04/06/2022, Additional history exists Colonoscopy through age 75 06/24/203206/24, 06/23/2022, 06/23/2022, Additional history exists Tetanus booster 05/05/2033 05/05/2023, 05/04, 05/08/2004 RSV vaccine for adults or (1 - 1-dose 75+ series) 2041 HIV for age 15-65 Completed 05/05/2023 Hepatitis C screening for ag e 18-79 Completed 05/05/2023 Procedures Procedure Name Priority Date/Time Associated Diagnosis Comments BASIC METABOLIC PANEL Routine 04/23/2025 3:26 PM CDT HTN (hypertension) LIPID PANEL W REFLEX MEASURED LDL Routine 10/23/2024 3:24 PM 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 Mixed hyperlipidemia LC HIV-1/O/2, 4TH GENERATION Routine [...] 92 65 - 99 mg/dL [facility] Comment: Fasting reference interval UREA NITROGEN (BUN) [...] CALCIUM 9.2 8.6 - 10.3 mg/dL [facility] Blood BLOOD SPECIMEN / Unknown 04/23/2025 3:26 PM CDT 04/23/2025 3:27 PM CDT Glo [facility] Final Resu lt Screenmailer [facility] [address] [place] [address], [facility] [address] [place] [address] * (ABNORMAL) LIPID PANEL W REFLEX MEASURED LDL (10/23/2024 3:24 PM 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) CHOLESTEROL, TOTAL 213(H) <200 mg/dL [facility] HDL CHOLESTEROL 36(L) > OR = 40 mg/dL [facility] TRIGLYCERIDES 390(H) <150 mg/dL [facility] Comment: If a non-fasting specimen was collected, consider repeat triglyceride testing on a fasting specimen if clinically indicated. Felicity et al. J. of Clin. Lipidol. 2015;9:129-169. LDL-CHOLESTEROL 121(H) mg/dL (calc) [facility] Comment: Reference range: <100 Desirable range <100 mg/dL for primary prevention; <70 mg/dL for patients with CHD or diabetic patients with > or = 2 CHD risk factors. LDL-C is now calculated using the Adriana calculation, which is a validated novel method providing better accuracy than the Friedewald equation in the estimation of LDL-C. Willard MCCALL et al. JAMES. 2013;310(19): 8841-7408 (http://education.Fuel3D/faq/FCT437) CHOL/HDLC RATIO 5.9(H) <5.0 (calc) [facility] NON HDL CHOLESTEROL 177(H) <130 mg/dL (calc) [facility] Comment: For patients with diabetes plus 1 major ASCVD risk factor, treating to a non-HDL-C goal of <100 mg/dL (LDL-C of <70 mg/dL) is considered a therapeutic option. Blood BLOOD SPECIMEN / Unknown 10/23/2024 3:24 PM 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 10/23/2024 3:24 PM 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 Glo [facility] Final Resu lt Screenmailer [facility] [address] [place] [address], [facility] [address] [place] [phone] * LC HCV ANTIBODY RFX TO QUANT PCR (05/05/2023 3:16 PM CDT) [facility] HCV Ab Non Reactive Non Reactive 05/08/2023 7:07 AM CDT [facility] Blood BLOOD SPECIMEN / Unknown Venipuncture / Unknown 05/05/2023 3:16 PM CDT 05/05/2023 3:17 PM CDT Narrative [facility] ([facility]) - 05/08/2023 7:07 AM CDT Performed at: [address] [place] [id number] Gluing Pressman: Will Bautista MD, Phone: [phone] [facility] Final Resu lt Performing Organization Address [facility]/ZIP Co de Phone Number [facility]) [address] [place] [address], * LC HIV-1/O/2, 4TH GENERATION (05/05/2023 3:16 PM CDT) HIV Scr 4th Gen Non Reactive Non Reactive 05/08/2023 7:07 AM CDT [facility]) Comment: HIV Negative HIV-1/HIV-2 antibodies and HIV-1 p24 antigen were NOT detected. There is no laboratory evidence of HIV infection. Blood BLOOD SPECIMEN / Unknown Venipuncture / Unknown 05/05/2023 3:16 PM CDT 05/05/2023 3:17 PM CDT Narrative [facility] ([facility]) - 05/08/2023 7:07 AM CDT Performed at: [address] [place] [id number] Gluing Pressman: Will Bautista MD, Phone: [phone] [facility] Final Resu lt Performing Organization Address [facility]/ZIP Co de Phone Number [facility] ([facility]) [address] [place] [address], * COLONOSCOPY (06/23/2022 7:37 AM CDT) 06/23/2022 [...] 7:37 AM Procedure Code(s): --- Professional --- 94579, Colonoscopy, flexible; diagnostic, including collection of specimen(s) bybrushing or washing, when performed (separateprocedure) Diagnosis Code(s): --- Professional --- Z12.11, Encounter for screening formalignant neoplasm of colon K57.30, Diverticulosis of large intestine without perforation or abscess withoutbleeding CPT copyright 2020 [employer]. All rights reserved. The codes documented in this report are preliminary and upon insurance defense paralegal reviewmay be revised to meet current compliance requirements. Scope In: 8:35:54 AM Scope Withdrawal Time 0 hours 7 minutes 43 seconds Scope Out: 8:48:27 AM us Willard Matos MD PROCEDURE ORD Final Res ult from Last 3 Months or Most Recently Relevant to Health Maintenance Insurance [facility] [place] [address] [place] [address] WORKERS COMP Advance Directives Documents on File Type Date Recorded Patient General Farmer Expl anation Healthcare Directive 08/02/2023 023 * [...] 3:14 PM 08/09/2006 4:19 PM Care Teams Blister Pack Operator Relationship Specialty Start Date End Date Glo Slaughter PA [address] [place] [address] PCP - General Physician Flask Handler 05/07/23
--- OUTSIDE RECORDS SUMMARY | 2025-07-14 05:41 | XMS_ITS | CCD ---
Author Name Interface, [id number] Address [address] [place] [address] [address] [place] [address] [facility] Address [facility] [address] [place] [address] Care Team Providers Care Time Recorder Name Role Phone Collins PALOMO, Abner Alford Unavailable Unavailable Reason for Visit NURSE VISIT 15 MIN Social History Date Name Value 06/28/2023 Sex Male
--- OUTSIDE RECORDS SUMMARY | 2025-07-14 05:42 | XMS_ITS | Data Portability ---
Author Organization [facility] Address [address] [place] [address] Care Team Providers Care Sweat Band Sewer Name Role Phone ISRRAEL BROWN Primary Care Provider [phone] ISRRAEL BROWN Referring Provider Assessment Encounter Date [...] PSA, total, serum or plasma 2023 [facility], [address] [facility] [place], [address], 08:01:10 PSA, total, serum or plasma 2023 024 [facility], [address] [facility] [place], [address], 10:45:28 PSA, total, serum or plasma 2023 024 [facility], [address] [place] [address], [address], 17:17:39 Referral None recorded. Procedures None recorded. Surgeries None recorded. Imaging None recorded. Medication Orders tadalafil 5 mg tablet 2024 025 [id number], [address] [place] [address], [id number], 16:17:43 tadalafil 5 mg tablet 2023 024 [facility] [place] [address], [place], [address] [place] [address], [address], 13:48:59 tadalafil 5 mg tablet 2023 024 [facility] [place], [place] [id number], [address] [place] [address], [id number], 13:48:59 tadalafil 5 mg tablet 2023 024 [facility], [address] [place] [address], [id number], 13:48:59 Patient TargetsNo targets recorded. Patient Instructions Encounter Date Encounter Id Patient Instructions Last Modified By Organization Details Last Modified Time 10/04/2023 [id number] Hx of prostate cancer: He will keep his appointments as previously scheduled I will see him back in 3 months with his first PSA nick Not available 10/04/2023 15:36:29 11/18/2023 [id number] 58 y/o male presents for a EMMANUEL [...] and priapism. Not available 11/18/2023 16:09:26 12/26/2023 [id number] Prostate cancer: - Will check is PSA [...] headedness. [email or web address] Not available 12/26/2023 15:35:56 04/24/2024 [id number] 59 y/o male presents for a EMMANUEL [...] erectile function. Not available 04/24/2024 16:16:54 10/30/2024 [id number] 59 y/o male presents for a EMMANUEL [...] Address Organization Details Recorded Time Essential hypertension [id number] Active Garry Newman [place], [place] - [facility] 14:53:57 Problem Notes None recorded. Procedures Surgical History Date Name Laterality Status Provider Name and Address Organization Details Recorded Time 09/27/20 23 Catheter Removal completed Rosy Herreradwin [facility] 09/27/2023 12:11:48 06/13/20 23 Prostate Biopsy Procedure completed Alistair Freeman MD [address] [place] [address],[address], [place], [address], [facility] 06/16/2023 15:24:42 06/13/20 23 URONAV completed Alistair Freeman MD [address] [place] [address],[address], [place], [address], [facility] 06/16/2023 15:24:47 06/13/20 23 Rocephin/Ceftri axone completed Harrisonroberto Kang [facility] 06/13/2023 14:05:53 06/13/20 23 Blood Draw/RANCH COOK/PSA RESULTS completed Harrison De Pazan [facility] 06/13/2023 14:05:07 12/02/19 23 Diagnostic colonoscopy [...] Updated DateTime 10/04/2023 177.8 cm 42.3 kg/m2 211966.75 g Bebe Smith [facility] 10/04/2023 15:04:40 Date Recorded Body height Body mass index (BMI) Body weight Provider Name and Address Organization Details Last Updated DateTime 11/18/2023 177.8 cm 42.3 kg/m2 297110.75 g Garry Newman [facility] 11/18/2023 14:53:02 Date Recorded Body height Provider Name an d Address Organization Details Last Updated DateTime 12/26/2023 177.8 cm Bebe Smith [facility] 12/26/2023 15:10:58 Date Recorded Body height Body mass index (BMI) Body weight Provider Name and Address Organization Details Last Updated DateTime 04/24/2024 177.8 cm 42.3 kg/m2 270080.[address] - [facility] 04/24/2024 15:51:03 Social History Question Answer Notes LastModified by [employer] Details LastModified Time Tobacco Smoking Status Never Smoker Not Available Health Note 10/27/2024 13:48:57 Do You Have An Advance Directive? No [email or web address] Information not available 10/27/2024 What Is Your Level Of Caffeine Consumption? Moderate [email or web address] Information not available 10/27/2024 How Much Tobacco Do You Chew? None [email or web address] Information not available 10/27/2024 Do You Have A Medical Power Of Jitterbug Operator? Yes [email or web address] Information not available 10/27/2024 What [...] Functional Status Question Answer Note LastModified by H[employer]suite ion Details LastModified Time Do you use [...] quadrivalent, preservative 6 completed Kanu Ruud null, [facility] 06/13/2023 15:27:22 Influenza, MDCK, quadrivalent, PF 0 completed [facility] 15:27:22 Influenza, MDCK, quadrivalent, PF 9 completed [facility] 06/13/2023 15:27:22 Tdap 3 completed [facility] 06/13/2023 15:27:22 Tdap 3 completed Kanu Ruud null, [facility] 06/13/2023 15:27:22 Influenza, split virus, trivalent, preservative 7 completed [facility] 06/[facility]23 15:27:22 Influenza, split virus, trivalent, preservative 8 completed [facility] 06/13/2023 15:27:22 Influenza, split virus, trivalent, preservative 1 completed [facility] 06/13/2023 15:27:22 Influenza, split virus, trivalent, preservative 0 completed [facility] 06/13/2023 15:27:22 Influenza, split virus, trivalent, preservative 2 completed Kanu Burgosud null, [facility] 06/13/2023 15:27:22 Influenza, split virus, trivalent, preservative 4 completed Kanu wilkins, [facility] 06/13/2023 15:27:22 Influenza, split virus, trivalent, PF 7 completed Kanu wilkins, [facility] 06/13/2023 15:27:22 Td (adult), 2 Lf tetanus toxoid, preservative free, adsorbed 4 completed Kanu wilkins, [facility] 06/13/2023 15:27:22 Influenza, split virus, quadrivalent, PF 8 completed Kanu wilkins, [facility] 06/13/2023 15:27:22 Past Encounters Encounter ID Performer Location Encounter Start Date Encounter Closed Date Diagnosis/Indication Diagnosis SNOMED-CT Code Diagnosis ICD10 Code Diagnosis IMO Codes Diagnosis Note [id number] MD Jonny Uribe [address] [place] [phone] 06/13/2023 13:56:59 06/13/2023 14:06:46 Prostate specific antigen above reference range 771040094 R97.20 [id number] MD Jonny Uribe [address] [place] [address] [place] [phone] 06/13/2023 14:00:07 06/16/2023 13:30:03 Prostate specific antigen above reference range 987234207 R97.20 trus biopsy done w/o compc [id number] MD Jonny Uribe [address] [place] [phone] 06/20/2023 13:01:44 06/20/2023 13:38:50 Malignant neoplasm of prostate 019575801 C61 young patient w high volume michael 7 disease. 4+3=7discu ssed all options including --1. active surveillan ce2. radical prostatect omy3. radiation discussed all r/b/a to all treatment options.we discussed incontinen ce, ED, and other surgical complicait ons. discussed radiatio at length as well and possible complicati ons HE WOULD LIKE TO SEE DR. PAVON TO DISCUSS RADIATION OPTION AND THINK ABOUT IT MORE. [id number] MD Jonny Uribemireille [address] [place] [address],S[address] [place] [phone] 07/04/2023 10:47:36 07/04/2023 11:29:12 Carcinoma of prostate 881970489 C61 PATIENT W HIGH VOLUME AND HIGH RISK DISEASE. GIVEN HIS his young age, surgery is certainly a reasonable optiion see HPI - 10 min spent [id number] MD Jonny Uribe [address] [place] [address] [place] [phone] 09/27/2023 11:26:14 09/27/2023 12:21:58 Malignant neoplasm of prostate 559027211 C61 [id number] ART Randall [facility] [address] [place] [address],[address] [address] 10/04/2023 14:55:06 10/04/2023 15:59:16 History of malignant neoplasm of prostate 570073663 Z85.46 [id number] DUY GOMEZ [facility] [address] [place] [address] [place] [phone] 11/18/2023 14:52:31 11/18/2023 16:56:33 Erectile dysfunction following radical prostatectomy 0697465450 19101 N52.31 Male urina ry stress incontinence 747061530 N39.3 [id number] ART Randall [facility] [address] [place] [address] [place] [phone] 0 12/26/2023 15:09:44 12/26/2023 15:48:00 Erectile dysfunction following radical prostatectomy 8088996884 19101 N52.31 Male urina ry stress incontinence 002713601 N39.3 History of malignant neoplasm of prostate 410976056 Z85.46 [id number] DUY GOMEZ [facility] [address] [place] [address] [place] [phone] 04/24/2024 15:50:06 04/24/2024 16:21:02 Erectile dysfunction following radical prostatectomy 5496835512 19101 N52.31 Male urina ry stress incontinence 686472699 N39.3 [id number] [facility] [address] [facility] [place] [address] 10/30/2024 16:13:29 10/30/2024 16:41:22 Erectile dysfunction following radical prostatectomy 2080635108 [address] N52.31 Male urina ry stress incontinence 649989055 N39.3 Malignant neoplasm of prostate 245208729 C61 Health Concerns Section Related Observation LastModified by Organization Detai ls LastModified Time None Recorded Concern Status LastModified by Organization Details LastModified Time None Recorded Advance Directives Directive N: Payers Insurance Date Sequence Insurance Name Policy Number Policy Garcia Covered Member ID Garcia Member ID Guarantor Name 11/12/2024 1 [place] [id number] Henok Sol [id number] Henok Sol 10/05/2023 1 [facility] [id number] Henok Sol [id number] Henok Sol Notes Date Note Type Note Provider Name and Address Organization Details Recorded Time 4 text/html 58 year old male with history of prostate cancer who is now s/p radical prostatectomy with Dr. Freeman on 09/16/2023 He underwent radical prostatectomy with Dr. Freeman on 09/16/2023His surgical pathology revealed Hartshorne 4+3 = 7 disease.His surgical margins were positive, 1 [id number], grade group 3 ART John [address] [facility],[address], [place], [address], [facility] 10/04/2023 15:36:38 4 text/html IncontinenceReported by [...] facilitate and coordinate their care. ODIN KIRBY, PAC [address] [place] [address],[address], [place], [address], [facility] 11/18/2023 16:09:37 4 text/html 58 year old male with history of prostate cancer who is now s/p radical prostatectomy with Dr. Freeman on 09/16/2023 He underwent radical prostatectomy with Dr. Freeman on 09/16/2023His surgical pathology revealed Hartshorne 4+3 = 7 disease.His surgical margins were positive, 1 [id number], grade group 3 His first post-operative PSA [...] care.VIDEO visit lasting 5 minutes ART John [address] [place] [address],[address] [place] [address], [phone] 12/26/2023 15:37:58 4 text/html IncontinenceReported [...] facilitate and coordinate their care. DUY GOMEZ [address] [place] [address],[address], [phone] 04/24/2024 16:17:12 5 text/html IncontinenceReported [...] facilitate and coordinate their care. ODIN KIRBY, [facility] [address] [place] [address],[address], [place], [address], [facility] 10/30/2024 16:18:23
--- NOTE | 2025-07-14 06:05 | ED_ITS ---
HPI - General Adult General Chief complaint: Arrhythmia/Palpitations <Edvin Thrasher MD - Last Filed: 07/14/25 08:29> Stated complaint: states is in a-fib <Edvin Thrasher MD - Last Filed: 07/14/25 08:29> Time Seen by Provider: 07/14/25 06:03 <Edvin Thrasher MD - Last Filed: 07/14/25 08:29> History of Present Illness HPI narrative: awoke around 0430 feeling SOB and feeling like he was in afib. hx of afib, hx of multiple cardioversions in the past. no blood thinners . had an ablasion many years ago. 60-year-old man presenting to the emergency department with concern of atrial fibrillation. Seen last in this emergency department by myself about 3 months ago requiring electrical cardioversion. History of paroxysmal atrial fibrillation and number of electrical cardioversions. Has also had ablation. Did do some yd work yesterday. Not particularly stressed. 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 No longer taking anticoagulants. Last ate last night. Feeling lightheaded and short of breath. Is quite certain that he was not in atrial fibrillation yesterday. <Edvin Thrasher MD - Last Filed: 07/14/25 08:29> Related Data Home medications: Home Medications ?Medication ?Instructions ?Recorded ?Confirmed metoprolol succinate 25 mg 25 mg PO DAILY 09/22/2307/26 tablet,extended release 24 hr tadalafil 5 mg tablet 5 mg PO DAILY 03/02/2407/14 lisinopril 40 mg tablet 40 mg PO DAILY 04/27/2507/03 metoprolol tartrate 50 mg tablet 50 mg PO BID 04/27/25 07/14/25 Previous Rx's ?Medication ?Instructions ?Recorded apixaban 5 mg tablet (Eliquis) 5 mg PO BID #60 tabs amoxicillin 875 mg-potassium 1 tab PO BID #10 tabs 07/26 clavulanate 125 mg tablet apixaban 5 mg tablet (Eliquis) 5 mg PO BID #60 tabs apixaban 5 mg tablet (Eliquis) 5 mg PO BID #60 tabs <Edvin Thrasher MD - Last Filed: 07/14/25 08:29> Allergies/adverse reactions: Allergies Allergy/AdvReac Type Severity Reaction Status Date / Time No Known Drug Allergies Allergy Verified 08/12/24 09:33 <Edvin Thrasher MD - Last Filed: 07/14/25 08:29> Review of Systems Status of ROS: Reports: 6 or more systems reviewed and unremarkable except as noted in History and below <Edvin Thrasher MD - Last Filed: 07/14/25 08:29> [facility] Medical History: Medical History Atrial fibrillation with rapid ventricular response ?I48.91 - Unspecified atrial fibrillation (ICD-10) Paroxysmal SVT (supraventricular tachycardia) ?I47.10 - Supraventricular tachycardia, unspecified (ICD-10) History of cardioversion ?Z92.89 - Personal history of other medical treatment (ICD-10) Sleep apnea ?G47.30 - Sleep apnea, unspecified (ICD-10) Umbilical hernia without obstruction and without gangrene ?K42.9 - Umbilical hernia without obstruction or gangrene (ICD-10) Spondylosis, lumbosacral ?M47.817 - Spondylosis without myelopathy or radiculopathy, lumbosacral region (ICD-10) Prostate cancer ?C61 - Malignant neoplasm of prostate (ICD-10) Prediabetes ?R73.03 - Prediabetes (ICD-10) Pneumonia due to COVID-19 virus ?U07.1 - COVID-19 (ICD-10) ?J12.82 - Pneumonia due to coronavirus disease 2019 (ICD-10) Obesity, unspecified ?E66.9 - Obesity, unspecified (ICD-10) Hyperlipidemia, mixed ?E78.2 - Mixed hyperlipidemia (ICD-10) Cervical disc displacement ?M50.20 - Other cervical disc displacement, unspecified cervical region (ICD- 10) Colon polyp ?K63.5 - Polyp of colon (ICD-10) Kidney stone ?N20.0 - Calculus of kidney (ICD-10) Hypertension ?I10 - Essential (primary) hypertension (ICD-10) Atrial fibrillation ?I48.91 - Unspecified atrial fibrillation (ICD-10) <Edvin Thrasher MD - Last Filed: 07/14/25 08:29> Surgical History: Surgical History History of testicular surgery ?Z98.890 - Other specified postprocedural states (ICD-10) History of colonoscopy ?Z98.890 - Other specified postprocedural states (ICD-10) History of cervical discectomy ?Z98.890 - Other specified postprocedural states (ICD-10) History of prostatectomy ?Z90.79 - Acquired absence of other genital organ(s) (ICD-10) S/P ablation of atrial fibrillation ?Z98.890 - Other specified postprocedural states (ICD-10) ?Z86.79 - Personal history of other diseases of the circulatory system (ICD- 10) <Edvin Thrasher MD - Last Filed: 07/14/25 08:29> Social History: Social History Smoking Status: Never smoker Second hand tobacco smoke exposure: No How often do you have a drink containing alcohol: monthly or less AUDIT-C Alcohol total score: 1 Non-prescribed substance use: denies use <Edvin Thrasher MD - Last Filed: 07/14/25 08:29> Exam Narrative: Exam Narrative: Very pleasant. NAD though seems just a little uncomfortable. Heart in elevated rate and irregular rhythm. Lungs appear clear. Abdomen is soft nontender. Mentating normally. Moving all extremities without difficulty. No peripheral edema. Little thick in the posterior oropharynx though tonsils are visible. <Edvin Thrasher MD - Last Filed: 07/14/25 08:29> Const: Vital Signs, click to edit/add: Vital Signs - 24 hr 07/14/25 05:43 07/14/25 05:57 07/14/25 06:00 Temperature 98.5 F Pulse Rate 82 98 Pulse Rate [Pulse Oximeter] 83 Respiratory Rate 16 18 16 Blood Pressure 152/103 H Blood Pressure [Ri ght Upper Arm] 172/98 H Pulse Oximetry 94 93 95 Oxygen Delivery Me thod Room Air Oxygen Flow Rate 07/14/25 06:01 07/14/25 06:02 07/14/25 06:15 Temperature Pulse Rate 92 85 85 Pulse Rate [Pulse Oximeter] Respiratory Rate 19 13 14 Blood Pressure 150/97 H Blood Pressure [Ri ght Upper Arm] Pulse Oximetry 93 95 94 Oxygen Delivery Me thod Oxygen Flow Rate 07/14/25 06:17 07/14/25 06:30 07/14/25 06:31 Temperature Pulse Rate 90 74 78 Pulse Rate [Pulse Oximeter] Respiratory Rate 13 16 16 Blood Pressure 128/90 H 110/75 Blood Pressure [Ri ght Upper Arm] Pulse Oximetry 94 93 94 Oxygen Delivery Me thod Oxygen Flow Rate 07/14/25 06:45 07/14/25 06:46 07/14/25 07:00 Temperature Pulse Rate 66 78 67 Pulse Rate [Pulse Oximeter] Respiratory Rate 15 16 17 Blood Pressure 124/85 Blood Pressure [Ri ght Upper Arm] Pulse Oximetry 96 95 94 Oxygen Delivery Me thod Oxygen Flow Rate 07/14/25 07:02 07/14/25 07:15 07/14/25 07:17 Temperature Pulse Rate 80 85 73 Pulse Rate [Pulse Oximeter] Respiratory Rate 15 12 Blood Pressure 126/78 131/88 Blood Pressure [Ri ght Upper Arm] Pulse Oximetry 95 94 95 Oxygen Delivery Me thod Oxygen Flow Rate 07/14/25 07:30 07/14/25 07:30 07/14/25 07:31 Temperature Pulse Rate 72 73 Pulse Rate [Pulse Oximeter] Respiratory Rate Blood Pressure 113/80 Blood Pressure [Ri ght Upper Arm] Pulse Oximetry 97 94 94 Oxygen Delivery Me thod Oxygen Flow Rate 07/14/25 07:32 07/14/25 07:45 07/14/25 07:47 Temperature Pulse Rate 76 76 73 Pulse Rate [Pulse Oximeter] Respiratory Rate 15 Blood Pressure 116/80 Blood Pressure [Ri ght Upper Arm] Pulse Oximetry 94 97 97 Oxygen Delivery Me thod Oxygen Flow Rate 07/14/25 08:00 07/14/25 08:01 07/14/25 08:15 Temperature Pulse Rate 70 72 79 Pulse Rate [Pulse Oximeter] Respiratory Rate 18 15 19 Blood Pressure 126/81 Blood Pressure [Ri ght Upper Arm] Pulse Oximetry 97 96 97 Oxygen Delivery Me thod Nasal Cannula Oxygen Flow Rate 3 07/14/25 08:16 07/14/25 08:20 07/14/25 08:30 Temperature Pulse Rate 75 75 74 Pulse Rate [Pulse Oximeter] Respiratory Rate 16 17 13 Blood Pressure 133/89 134/69 Blood Pressure [Ri ght Upper Arm] Pulse Oximetry 97 98 97 Oxygen Delivery Me thod Nasal Cannula Oxygen Flow Rate 3 07/14/25 08:32 07/14/25 08:45 07/14/25 08:46 Temperature Pulse Rate 74 78 75 Pulse Rate [Pulse Oximeter] Respiratory Rate 17 16 Blood Pressure 123/68 126/70 Blood Pressure [Ri ght Upper Arm] Pulse Oximetry 97 97 98 Oxygen Delivery Me thod Nasal Cannula Oxygen Flow Rate 3 07/14/25 08:47 07/14/25 09:00 07/14/25 09:01 Temperature Pulse Rate 76 74 75 Pulse Rate [Pulse Oximeter] Respiratory Rate 14 14 14 Blood Pressure 120/70 Blood Pressure [Ri ght Upper Arm] Pulse Oximetry 98 97 97 Oxygen Delivery Me thod Oxygen Flow Rate 07/14/25 09:15 07/14/25 09:17 Temperature Pulse Rate 76 75 Pulse Rate [Pulse Oximeter] Respiratory Rate 14 16 Blood Pressure 121/77 Blood Pressure [Ri ght Upper Arm] Pulse Oximetry 97 98 Oxygen Delivery Me thod Oxygen Flow Rate <Edvin Thrasher MD - Last Filed: 07/14/25 08:29> Vital Signs, click to edit/add: Vital Signs - 24 hr 07/14/25 05:43 07/14/25 05:57 07/14/25 06:00 Temperature 98.5 F Pulse Rate 82 98 Pulse Rate [Pulse Oximeter] 83 Respiratory Rate 16 18 16 Blood Pressure 152/103 H Blood Pressure [Ri ght Upper Arm] 172/98 H Pulse Oximetry 94 93 95 Oxygen Delivery Me thod Room Air Oxygen Flow Rate 07/14/25 06:01 07/14/25 06:02 07/14/25 06:15 Temperature Pulse Rate 92 85 85 Pulse Rate [Pulse Oximeter] Respiratory Rate 19 13 14 Blood Pressure 150/97 H Blood Pressure [Ri ght Upper Arm] Pulse Oximetry 93 95 94 Oxygen Delivery Me thod Oxygen Flow Rate 07/14/25 06:17 07/14/25 06:30 07/14/25 06:31 Temperature Pulse Rate 90 74 78 Pulse Rate [Pulse Oximeter] Respiratory Rate 13 16 16 Blood Pressure 128/90 H 110/75 Blood Pressure [Ri ght Upper Arm] Pulse Oximetry 94 93 94 Oxygen Delivery Me thod Oxygen Flow Rate 07/14/25 06:45 10/12/25 06:46 07/14/25 07:00 Temperature Pulse Rate 66 78 67 Pulse Rate [Pulse Oximeter] Respiratory Rate 15 16 17 Blood Pressure 124/85 Blood Pressure [Ri ght Upper Arm] Pulse Oximetry 96 95 94 Oxygen Delivery Me thod Oxygen Flow Rate 07/14/25 07:02 07/14/25 07:15 07/14/25 07:17 Temperature Pulse Rate 80 85 73 Pulse Rate [Pulse Oximeter] Respiratory Rate 15 12 Blood Pressure 126/78 131/88 Blood Pressure [Ri ght Upper Arm] Pulse Oximetry 95 94 95 Oxygen Delivery Me thod Oxygen Flow Rate 07/14/25 07:30 07/14/25 07:30 07/14/25 07:31 Temperature Pulse Rate 72 73 Pulse Rate [Pulse Oximeter] Respiratory Rate Blood Pressure 113/80 Blood Pressure [Ri ght Upper Arm] Pulse Oximetry 97 94 94 Oxygen Delivery Me thod Oxygen Flow Rate 07/14/25 07:32 07/14/25 07:45 07/14/25 07:47 Temperature Pulse Rate 76 76 73 Pulse Rate [Pulse Oximeter] Respiratory Rate 15 Blood Pressure 116/80 Blood Pressure [Ri ght Upper Arm] Pulse Oximetry 94 97 97 Oxygen Delivery Me thod Oxygen Flow Rate 07/14/25 08:00 07/14/25 08:01 07/14/25 08:15 Temperature Pulse Rate 70 72 79 Pulse Rate [Pulse Oximeter] Respiratory Rate 18 15 19 Blood Pressure 126/81 Blood Pressure [Ri ght Upper Arm] Pulse Oximetry 97 96 97 Oxygen Delivery Me thod Nasal Cannula Oxygen Flow Rate 3 07/14/25 08:16 07/14/25 08:20 07/14/25 08:30 Temperature Pulse Rate 75 75 74 Pulse Rate [Pulse Oximeter] Respiratory Rate 16 17 13 Blood Pressure 133/89 134/69 Blood Pressure [Ri ght Upper Arm] Pulse Oximetry 97 98 97 Oxygen Delivery Me thod Nasal Cannula Oxygen Flow Rate 3 07/14/25 08:32 07/14/25 08:45 07/14/25 08:46 Temperature Pulse Rate 74 78 75 Pulse Rate [Pulse Oximeter] Respiratory Rate 17 16 Blood Pressure 123/68 126/70 Blood Pressure [Ri ght Upper Arm] Pulse Oximetry 97 97 98 Oxygen Delivery Me thod Nasal Cannula Oxygen Flow Rate 3 07/14/25 08:47 10/12/25 09:00 07/14/25 09:01 Temperature Pulse Rate 76 74 75 Pulse Rate [Pulse Oximeter] Respiratory Rate 14 14 14 Blood Pressure 120/70 Blood Pressure [Ri [facility] Upper Arm] Pulse Oximetry 98 97 97 Oxygen Delivery Me thod Oxygen Flow Rate 07/14/25 09:15 07/14/25 09:17 Temperature Pulse Rate 76 75 Pulse Rate [Pulse Oximeter] Respiratory Rate 14 16 Blood Pressure 121/77 Blood Pressure [Ri t Upper Arm] Pulse Oximetry 97 98 Oxygen Delivery Me thod Oxygen Flow Rate <Lona Cash MD - Last Filed: 07/14/25 10:11> Documenting provider has reviewed patient's vital signs: yes <Edvin Thrasher MD - Last Filed: 07/14/25 08:29> Course Reevaluation(s) Time of Reevaluation #1: 08:17 <Lona Cash MD - Last Filed: 07/14/25 10:11> Reevaluation #1: I was asked to attend cardioversion for [place] by Dr. Thrasher. Patient was on appropriate cardiac monitoring, had supplemental oxygen going and pulse oximetry and capnography monitored as well. I was there for assistance with anesthesia. Patient was given 80 mg IV propofol fall with good sedation. Dr. Thrasher perform the cardioversion, please see his note. Patient had very brief need for jaw thrust immediately after sedation given, did elevate the head of his bed a little higher and after cardioversion, he had no further airway issues. There were no complications with the sedation. Patient will be followed per protocol until he meets discharge criteria from his sedation. <Lona Cash MD - Last Filed: 07/14/25 10:11> Vital Signs Vital signs: Initial Vital Signs Temperature 98.5 F 07/14/25 05:43 Temperature Source Oral 07/14/25 05:43 Pulse Rate 83 07/14/25 05:43 Pulse Rhythm Irregular 07/14/25 05:43 Respiratory Rate 16 07/14/25 05:43 Blood Pressure 172/98 H 07/14/25 05:43 Blood Pressure Mean 122 H 07/14/25 05:43 Blood Pressure Position Semi-Fowlers 07/14/25 05:43 Pulse Oximetry 94 07/14/25 05:43 Oxygen Delivery Method Room Air 07/14/25 05:43 Vital Signs Temperature 98.5 F 07/14/25 05:43 Pulse Rate 83 07/14/25 05:43 Respiratory Rate 16 07/14/25 05:43 Blood Pressure 172/98 H 07/14/25 05:43 Pulse Oximetry 94 07/14/25 05:43 Oxygen Delivery Method Room Air 07/14/25 05:43 Temperature 98.5 F 07/14/25 05:43 Pulse Rate 75 07/14/25 09:17 Respiratory Rate 16 07/14/25 09:17 Blood Pressure 121/77 07/14/25 09:17 Pulse Oximetry 98 07/14/25 09:17 Oxygen Delivery Method Nasal Cannula 07/14/25 08:46 Oxygen Flow Rate 3 07/14/25 08:46 <Edvin Thrasher MD - Last Filed: 07/14/25 08:29> Initial Vital Signs Temperature 98.5 F 07/14/25 05:43 Temperature Source Oral 07/14/25 05:43 Pulse Rate 83 07/14/25 05:43 Pulse Rhythm Irregular 07/14/25 05:43 Respiratory Rate 16 07/14/25 05:43 Blood Pressure 172/98 H 07/14/25 05:43 Blood Pressure Mean 122 H 07/14/25 05:43 Blood Pressure Position Semi-Fowlers 07/14/25 05:43 Pulse Oximetry 94 07/14/25 05:43 Oxygen Delivery Method Room Air 07/14/25 05:43 Vital Signs Temperature 98.5 F 07/14/25 05:43 Pulse Rate 83 07/14/25 05:43 Respiratory Rate 16 07/14/25 05:43 Blood Pressure 172/98 H 07/14/25 05:43 Pulse Oximetry 94 07/14/25 05:43 Oxygen Delivery Method Room Air 07/14/25 05:43 Temperature 98.5 F 07/14/25 05:43 Pulse Rate 75 07/14/25 09:17 Respiratory Rate 16 07/14/25 09:17 Blood Pressure 121/77 07/14/25 09:17 Pulse Oximetry 98 07/14/25 09:17 Oxygen Delivery Method Nasal Cannula 07/14/25 08:46 Oxygen Flow Rate 3 07/14/25 08:46 <Lona Cash MD - Last Filed: 07/14/25 10:11> Medications Administered Medications: Discontinued Medications Generic Name Dose Route Start Last Admin Trade Name Freq PRN Reason Stop Dose Admin Diltiazem HCl 20 mg 07/14/25 06:12 07/14/25 06:20 Diltiazem 5 Mg/Ml Inj IVP 07/14/25 06:13 20 mg ONCE ONE Administration Sodium Chloride 1,000 mls @ 1,000 mls/hr 07/14/25 06:12 07/14/25 06:20 0.9 % Sodium Chloride 1000 Ml IV 07/14/25 07:11 1,000 mls/hr .Q1H ONE Administration <Edvin Thrasher MD - Last Filed: 07/14/25 08:29> Discontinued Medications Generic Name Dose Route Start Last Admin Trade Name Freq PRN Reason Stop Dose Admin Diltiazem HCl 20 mg 07/14/25 06:12 07/14/25 06:20 Diltiazem 5 Mg/Ml Inj IVP 07/14/25 06:13 20 mg ONCE ONE Administration Sodium Chloride 1,000 mls @ 1,000 mls/hr 07/14/25 06:12 07/14/25 06:20 0.9 % Sodium Chloride 1000 Ml IV 07/14/25 07:11 1,000 mls/hr .Q1H ONE Administration <Lona Cash MD - Last Filed: 07/14/25 10:11> Medical Decision Making MDM Narrative Medical decision making narrative: EKG independently reviewed by me does show atrial fibrillation with RVR at a rate of 113. I think would be a good candidate for cardioversion but has spontaneously converted in the past. Will give some fluids check electrolytes, replace what might be needed. Diltiazem. Labs are unremarkable. Rate is now in the 80s but remains in atrial fibrillation. I anticipate electrical cardioversion. Pending assistance. Procedural note Electrical cardioversion for symptomatic AFib with RVR Risks and benefits were discussed. Assisted by Dr. Boothe for anesthesia. Verified end-tidal. Oxygen via nasal cannula. Sedated with 80 mg of propofol. Synced cardioversion at 200 joules successfully converted to normal sinus. The did not desat however required brief airway repositioning with some jaw thrust. Repeat EKG reviewed by me showing normal sinus rhythm with historical right b undle-branch block. Rate of 76. Woke spontaneously. Conversant. Will need to be restarted on Eliquis and I anticipate follow-up with Cardiology <Edvin Thrasher MD - Last Filed: 07/14/25 08:29> Medical Records Medical records reviewed: Yes I reviewed the patient's medical records <Edvin Thrasher MD - Last Filed: 07/14/25 08:29> Lab Data Lab results reviewed: Yes I reviewed the patient's lab results <Edvin Thrasher MD - Last Filed: 07/14/25 08:29> Labs: Lab Results 07/14/25 Range/Units 06:05 Hgb 16.3 (13.5-17.5) gm/dL Sodium 137 (135-149) mmol/L Potassium 3.7 (3.6-5.1) mmol/L Chloride 104 (96-114) mmol/L Carbon Dioxide 25 (20-32) mmol/L Anion Gap 8 (7-15) mEq/L BUN 21 (7-30) mg/dL Creatinine 0.8 (0.5-1.5) mg/dL Estimated Creat Clear 99.42 Estimated GFR 102 ml/min Glucose 145 H (60-115) mg/dL Calcium 8.9 (8.4-10.6) mg/dL Magnesium 2.1 (1.5-2.6) mg/dL <Edvin Thrasher MD - Last Filed: 07/14/25 08:29> Lab Results 07/14/25 Range/Units 06:05 Hgb 16.3 (13.5-17.5) gm/dL Sodium 137 (135-149) mmol/L Potassium 3.7 (3.6-5.1) mmol/L Chloride 104 (96-114) mmol/L Carbon Dioxide 25 (20-32) mmol/L Anion Gap 8 (7-15) mEq/L BUN 21 (7-30) mg/dL Creatinine 0.8 (0.5-1.5) mg/dL Estimated Creat Clear 99.42 Estimated GFR 102 ml/min Glucose 145 H (60-115) mg/dL Calcium 8.9 (8.4-10.6) mg/dL Magnesium 2.1 (1.5-2.6) mg/dL <Lona Cash MD - Last Filed: 07/14/25 10:11> ECG Data Attestation: I personally reviewed and interpreted this ECG as follows: (EKG 2 after fluids and diltiazem. Shows atrial fibrillation at a rate of 70.) <Edvin Thrasher MD - Last Filed: 07/14/25 08:29> Critical Care Time Critical Care Time Critical Care Time: Yes Attestation: The patient required my highest level preparedness to intervene emergently and I personally spent this critical care time directly and personally managing the patient. This critical care time included: Obtaining a history; Examining the patient; Pulse oximetry; Ordering and reviewing of studies; Arranging urgent treatment with development of a management plan; Evaluation of patients response to treatment; Frequent reassessment discussions with other providers. This critical care time was performed to assess and manage the high probability of imminent life-threatening deterioration that could result in multiorgan failure. It was exclusive of separate billable procedures and treating other patients and teaching time. <Edvin Thrasher MD - Last Filed: 07/14/25 08:29> Total Critical Care Time in Minutes: 70 <Edvin Thrasher MD - Last Filed: 07/14/25 08:29> Discharge Plan Discharge Clinical Impression: Atrial fibrillation with RVR <Edvin Thrasher MD - Last Filed: 07/14/25 08:29> Patient Disposition: Home w/ Parent or Adult <Edvin Thrasher MD - Last Filed: 07/14/25 08:29> Condition: Improved <Edvin Thrasher MD - Last Filed: 07/14/25 08:29> Additional Instructions: Stay well-hydrated. Get quality and regular sleep. Please contact Cardiology for follow-up to discuss next steps in care. Continue metoprolol at this point. Sending a prescription of Eliquis for you in the meantime <Edvin Thrasher MD - Last Filed: 07/14/25 08:29> Prescriptions: New Eliquis 5 mg tablet 5 mg PO BID Qty: 60 2RF No Action amoxicillin-pot clavulanate 875-125 mg tablet 1 tab PO BID Qty: 10 0RF metoprolol succinate 25 mg tablet extended release 24 hr 25 mg PO DAILY metoprolol tartrate 50 mg tablet 50 mg PO BID lisinopril 40 mg tablet 40 mg PO DAILY Eliquis 5 mg tablet 5 mg PO BID Qty: 60 0RF tadalafil 5 mg tablet 5 mg PO DAILY Eliquis 5 mg tablet 5 mg PO BID Qty: 60 1RF <Edvin Thrasher MD - Last Filed: 07/14/25 08:29> Follow Up/Referrals: Glo Slaughter PA-C [Primary Care Provider, Family Practice] <Edvin Thrasher MD - Last Filed: 07/14/25 08:29> Stand Alone Forms: My[facility] Info Instructions <Edvin Thrasher MD - Last Filed: 07/14/25 08:29>
--- OUTSIDE RECORDS SUMMARY | 2025-07-14 06:17 | XMS_ITS | CCD ---
Author Name Interface, [id number] lity Address [address] [place] [address] [address] [place] [address] [facility] Oncology Address [facility] [address] [place] [address] Care Team Providers Care Oxygen System Tester Name Role Phone Collins PALOMO, Abner Alford Unavailable Unavailable Reason for Visit Social History
--- OUTSIDE RECORDS SUMMARY | 2025-07-14 06:17 | XMS_ITS | CCD ---
Author Name Interface, [id number] lity Address [address] [place] [address] [address] [place] [address] [facility] Address [facility] [address] [place] [address] Care Team Providers Care Manager Wind Name Role Phone Collins PALOMO, Abner Alford Unavailable Unavailable Reason for Visit NURSE VISIT 15 MIN Social History Date Name Value 06/28[birth year]23 Sex Male
[2025-07-14 06:19] LABS: Hemoglobin* 16.3 gm/dL (13.5-17.5)
[2025-07-14] MEDS: dilTIAZem 5 MG/ML inj 20 MG IVP (06:20)
[2025-07-14 06:32] LABS: Chloride* 104 mmol/L (96-114); Potassium* 3.7 mmol/L (3.6-5.1); Sodium* 137 mmol/L (135-149)
[2025-07-14 06:35] LABS: Anion Gap 8 mEq/L (7-15); Blood Urea Nitrogen* 21 mg/dL (7-30); Calcium* 8.9 mg/dL (8.4-10.6); Carbon Dioxide* 25 mmol/L (20-32); Creatinine* 0.8 mg/dL (0.5-1.5); Est. Creatinine Clearance* 99.42; Estimated Glomerular Filt Rate 102 ml/min; Glucose* 145 mg/dL (60-115)
== END 2025-07-14 10:31 | disposition home or self-care (01) ==
PROVIDERS: Emergency Provider Family Medicine; PCP Physician Assistant
DX: I48.91 Unspecified atrial fibrillation (principal); Z79.01 Long term (current) use of anticoagulants
CPT/HCPCS: 92960; 36415; 80048; 83735; 85018; 93005; 94761; 96361; 96374; 99156; 99285; 99291; 99292; J7030

== ENCOUNTER 2025-09-30 23:33 | Emergency (ER) | payer BC, SELFPAY ==
--- OUTSIDE RECORDS SUMMARY | 2025-09-30 23:35 | XMS_ITS | Data Portability ---
Author Organization [facility] Address [address] [place] [address] Care Team Providers Care Retail Sales Manager Name Role Phone ISRRAEL BROWN Primary Care Provider ISRRAEL BROWN Referring Provider Assessment Encounter Date [...] 12/26/2023 15:33:32 Plan of Treatment Reminders Order DateSubmit DateProviderLast Modified ByOrganization DetailsLast Modified TimeDetailsAppointmentsNone recorded.LabPSA, total, serum or sgkexj3612/26/2023 03/05/2024[facility], [address] [place] [address] [place], [address], 06/12/2023 08:01:10PSA, total, serum or axbxzs34 [facility], [address] [place], [address], 11/08/2024 10:45:28PSA, total, serum or /[facility], [address] [place] [address], [address], 12/23/2023 17:17:39ReferralNone recorded.ProceduresNone recorded.SurgeriesNone recorded.ImagingNone recorded.Medication Orderstadalafil 5 mg dlxvqx1610/30/2024 10/30/2024[id number], [address] [place], [place], [phone], 571510/30/2024 16:17:43tadalafil 5 mg cbjxcd5604/24/2024 04/24/20249853ZTD-009[facility], [place], [place], [facility] [place], [address], 31 13:48:59tadalafil 5 mg tzsjnz3612/26/2023 12/26/2023PI-[address] [place] [address] [facility]86[facility], [address] [place], [place], [phone], 001510/27/2024 13:48:59tadalafil 5 mg qscyzp9711/18/2023 12/26/2023-[address] [place] [address] [facility] #29202, [address] [place], [place], [id number], [address]/27/2024 13:48:59 Patient TargetsNo targets recorded. Patient Instructions Encounter Date Encounter Id Patient Instructions Last Modified By Organization Details Last Modified Time 10/04/2023 [id number] Hx of prostate cancer: He will keep his appointments as previously scheduled I will see him back in 3 months with his first PSA nick Not available 10/04/2023 15:36:29 11/18/2023 [id number] y/o male pres ents for a EMMANUEL evaluation Urinary incontinence - [...] facial flushing, headache, nasal congestion, GERD, and priapism.dwjolxl1Whl ybypknbas51/16/2024 16:09:[id number] cancer: - Will check is PSA again in 3 months, and then again at his year anniversary witha visit at that time Incontinence: - Pelvic floor PT sent over Erectile dysfunction: - New RX for tadalafil sent to pharmacy. Side effects of phosphodiesterase-5 inhibitors were discussed in detail. Potential side effects include headache, facial flushing, heartburn, nasal congestion, visual changes, myalgia and light headedness. mstassifritzNot pfdxrrtyv45/25/2024 15:35:[id number] y/o male presents for a EMMANUEL follow up Urinary incontinence - Continue kegel exercises daily. Discussed pelvic floor physical therapy, buthe is not interested at this time. ED - Good recovery in erectile function. Continue tadalafil 5 mg daily. Stimulate semiregularly to maintain healthy penile tissue. Okay to discontinue vacuum erection device due to recovery and erectile function.ojmxqsq7Pcq ijcnbuzdq22/23/2024 16:16:[id number] y/o male presents for a EMMANUEL follow up Urinary incontinence - Continue kegel exercises daily. Discussed pelvic floor physical therapy, buthe is not interested at this time. ED - Good recovery in erectile function. Stimulate semi-regularly to maintain healthy penile tissue. PSA remains undetectable. Continue PSA labs every 3 months.cdytawm7Wup available 10/30/2024 16:18:14 Reason for Referral None Reported. Results Created Date Observation Date Name Description Value Unit Range Abnormal Flag Note LastModifiedBy Organization Detail LastModifiedTime Result Notes None recorded. Problems Name Problem SNOMED Code Status Onset Date Resolution Date Notes Provider Name and Address Organization Details Recorded Time Essential hypertension 95757467 Active JAQUELINE [place] - [place] Xdlrltw2811/18/2023 14:53:57 Problem Notes None recorded. Procedures Surgical History Date Name Laterality Status Provider Name and Address Organization Details Recorded Time 09/27/2023 [facility]/28/2022 12:11: Prostate Biopsy ProcedurecompletedBasir Lydia MD [address] [facility],[address], [place], [address], [facility] Fwnkrqt0506/16/2023 15:24:42006/13/2023URONAVcompletedAlistair Freeman MD [address] [facility],[address], [place], [address], [facility] Bpajddk9006/16/2023 15:24:47006/13/2023Rocephin/Ceftriaxonecompleted Harrison [facility]06/13/2023 14:05:53006/13/2023lood Draw/POKER SUPERVISOR/PSA RESULTScompletedCody [facility]06/13/2023 14:05:0712/01/2022 Diagnostic colonoscopycompletedNot [facility] Note09/30/2023 15:33:49Insert epicard eltrd opencompletedNot [facility] Note09/30/2023 15:33:49Removal of prostatecompletedNot [facility] Note09/30/2023 15:33:49 Imaging Results None recorded. Procedure Notes None recorded. Medical Equipment None Reported. Allergies No known drug allergies Medications Name Sig Start Date Stop Date Status Note LastModified by Organization Details LastModified Time oxybutynin chloride ER 10 mg tablet,extended release 24 hr 10/04/20239000gorfiufmu6464-47-87 HN: Patient reports no longer takingNot Available Not AvailableNot Availablelisinopril 20 mg tabletactiveNot AvailableNot AvailableNot Availableoxycodone-acetaminophen 5 mg-325 mg tabletTAKE 1 TABLET BY MOUTH EVERY 6 HOURS10/04/20237392rvhfpltzi0217-90-93 HN: Patient reports no longer takingNot AvailableNot AvailableNot Availableceftriaxone 1 gram solution for injectionTake 1 g by injection route.3984awkpqawem3273-90-39 HN: Patient reports no longer takingNot AvailableNot AvailableNot Available cephalexin 500 mg capsuleTAKE ONE CAPSULE BY MOUTH THREE TIMES DAILY FOR 5 DAYS 4completedNot AvailableNot AvailableNot Availablemetoprolol tartrate 50 mg tabletactiveNot AvailableNot AvailableNot Availablelisinopril 20 mg- hydrochlorothiazide 25 mg tabletTAKE 1 TABLET BY MOUTH EVERY DAY12/26/2023 completedNot AvailableNot AvailableNot Availablemetoprolol succinate ER 25 mg tablet,extended release 24 hr4completedNot AvailableNot AvailableNot Availableoxybutynin chloride 5 mg pbqvgs6710/04/20231863jkngotupl3384-01-15 HN: Patient reports no longer takingNot AvailableNot AvailableNot Available amoxicillin 875 mg-potassium clavulanate 125 mg tabletTAKE 1 TABLET BY MOUTH TWICE DAILYactiveNot AvailableNot AvailableNot Availableoxycodone 5 mg tablet 10/04/20239563zfthzjlpz6752-12-68 HN: Patient reports no longer takingNot Available Not AvailableNot Availabletadalafil 5 mg tabletTAKE 1 TABLET BY MOUTH EVERY DAY activeNot AvailableNot AvailableNot Availablemagnesium yvkjx736si 1/dayactiveNot AvailableNot AvailableNot Availablepeg 3350-electrolytes 236 gram-22.74 gram- 6.74 gram-5.86 gram otyajgek05/02/0614tjgqnfhld0706-93-22 HN: Patient reports no longer takingNot AvailableNot AvailableNot QjnyiyxwwRjfxasfwn83fk 1/dayactiveNot AvailableNot AvailableNot AvailableEliquis 5 mg tabletTAKE 1 TABLET BY MOUTH TWICE CIYNKmpodge2469-84-13 HN: Patient reports no longer takingNot AvailableNot AvailableNot Available Vitals Date Recorded Body height Body mass index (BMI) Body weight Provider Name and Address Organization Details Last Updated DateTime 10/04/2023 177.8 cm 42.3 kg/m2 464427.[address] [facility] 10/04/2023 15:04:40 Date Recorded Body height Body mass index (BMI) Body weight Provider Name and Address Organization Details Last Updated DateTime 11/18/2023 177.8 cm 42.3 kg/m2 854900.[address] [facility] 11/18/2023 14:53:02 Date Recorded Body height Provider Name an d Address Organization Details Last Updated DateTime 12/26/[address] [facility] 12/26/2023 15:10:58 Date Recorded Body height Body mass index (BMI) Body weight Provider Name and Address Organization Details Last Updated DateTime 04/24/2024 177.8 cm 42.3 kg/m2 165702.75 g Bryon Jarocho [place] - [place] [facility] 04/24/2024 15:51:03 Social History Question Answer Notes LastModified by Organization D etails LastModified Time Tobacco Smoking Status Never Smoker Not AvailableHealth Note10/27/2024 13:48:57Do You Have An Advance Directive?No [email or web address]-685Information not kwigaslri36/25/2025What Is Your Level Of Caffeine Consumption?ModerateAPI-685Information not lpxevqtlx01/25/2025How Much Tobacco Do You Chew?NoneAPI-685Information not isfievlie18/25/2025Do You Have A Medical Power Of Adult High School Instructor?YesAPI-685Information not zhrtckqlo97/25/2025What Was The Date Of Your Most Recent Tobacco Screening?10/30/2024PI-685Information not available 10/27/2024What Is Your Relationship Status?SingleAPI-685Information not jgtrhneeo75/25/2025re You Sexually Active?NoAPI-685Information not available 10/27/2024Has Tobacco Cessation Counseling Been Provided?NobstalmakovInformation not lymdnghis53/23/2024On What Date Was Tobacco Cessation Counseling Provided? 12/26/20235434xnbwrlnw5Hhrogbhovxo not dasazbbxq54/25/2024How Many Days In The Past Year Have You Consumed 5 Or More Drinks?0API-685Information not available 10/27/2024 Sex: Unknown Functional Status Question Answer Note LastModified by Organization D etails LastModified Time Do you use any illicit or recreational drugs? No [email or web address] not nmjxiedlg75/25/2025Do you or have you ever used any other forms of tobacco or nicotine?Kvqmrnl9Urpvldryxag not otzzbnrfo80/11/2023What is your level of alcohol consumption?NONEAPI-685Information not /25/2025 Do you or have you ever used smokeless tobacco?Never used smokeless tobacco API-685Information not yfimnkebt29/25/2025Do you or have you ever used e- cigarettes or vape?Never used electronic cigarettesAPI-685Information not ioozzddun19/25/2025 Mental Status None recorded. Family History Relationship Description Onset Age of this Age Resolved Age Notes LastModified by Organization Details LastModified Time Father No current problems or disabilit y stcivlbv6Hwe dyebjkxwx66/25/2024 15:12:11MotherNo current problems or disability ojrefoem2Kpg seoddeyna13/25/2024 15:12:12 Medical History Condition Response Sexually Transmitted Infection N Diabetes N Other N Bleeding Disorder N High Blood Pressure Y Kidney Stones N High Cholesterol Y GERD/Acid Reflux N Heart Disease N Cancer N Depression N Lung Disease N Immunizations Vaccine Type Date Status Note Provider Nam e and Address Organization Details Recorded Time Influenza, split virus, quadrivalent, preservative completed Kanu wilkins, [facility]06/13/2023 15:27:22Influenza, MDCK, quadrivalent, PF 07/02/2020completedL[place]tyville Ruud [facility] Xnpubqj5206/13/2023 15:27:22Influenza, MDCK, quadrivalent, PF 07/04/2019completedPedayna Ruud null, [facility]06/13/2023 15:27:80Yujo873completedPeter Ruud [facility] Lcxovgu3706/13/2023 15:27:28Kijk7205/29/2013completed[facility] 15:27:22Influenza, split virus, trivalent, yjgzvlsvleqe64/01/2017completeddayna Ruud null, [facility] Oowijbx1006/13/2023 15:27:22Influenza, split virus, trivalent, lmzubsfsrbqm73/01/2018completeddayna [facility]/2023 15:27:22Influenza, split virus, trivalent, atgwpknlosfm78/06/2011completedPedayna [facility] Wusstmo1606/13/2023 15:27:22Influenza, split virus, trivalent, quqqjjkenlfl48/07/2010completedPeter Ruud null, [facility] Cvhowrm7806/13/2023 15:27:22Influenza, split virus, trivalent, capemgcwvncs99/23/2012completedPeter Ruud null, [facility] Lhvqiqs1506/13/2023 15:27:22Influenza, split virus, trivalent, wfhojhtzgxus34/28/2014completedPeter Ruud null, [facility] Ndnmkmj6806/13/2023 15:27:22Influenza, split virus, trivalent, PF 08/10/2017completedPeter Ruud null, [facility] Muaujrk5106/13/2023 15:27:22Td (adult), 2 Lf tetanus toxoid, preservative free, iclxloco07/06/2004completedPeter Ruud null, [facility] Ufrfqin3506/13/2023 15:27:22Influenza, split virus, quadrivalent, PF07/12/2018completedPeter Ruud null, [facility]06/13/2023 15:27:22 Past Encounters Encounter ID Performer Location Encounter Start Date Encounter Closed Date Diagnosis/Indication Diagnosis SNOMED-CT Code Diagnosis ICD10 Code Diagnosis IMO Codes Diagnosis Note [id number] Alistair Freeman MD [address] [address] 06/13/2023 13:56:59 06/13/2023 14:06:46 Prostate specific antigen above reference range 503245260 R97.[id number] [address] 06/13/2023 14:00:0709 13:30:03Prostate specific antigen above reference jafvk683547439N81.20 trus biopsy done w/o bzsou556368Tlkqg Tareen[address] [address] 06/20/2023 13:01:44006/20/2023 13:38:50Malignant neoplasm of arwoduwf872789590C59 young patient w high volume ramirez 7 disease. 4+3=7discussed all options including --1. active surveillance2. radical prostatectomy3. radiation discussed all r/b/a to all treatment options.we discussed incontinence, ED, and other surgical complicaitons. discussed radiatio at length as well and possible complications HE WOULD LIKE TO SEE DR. PAVON TO DISCUSS RADIATION OPTION AND THINK ABOUT IT MORE. [id number] Tareen, [address] [address] 07/04/2023 10:47:361 11:29:12Carcinoma of pcmcgurq691643613O69 PATIENT W HIGH VOLUME AND HIGH RISK DISEASE. GIVEN HIS his young age, surgery is certainly a reasonable optiion see HPI - 10 min spent [id number] Tareen, [address] [address] 09/27/2023 11:26:14111/28/2022 12:21:58Malignant neoplasm of bgsnekvn648730460N87 [id number] Adhikari [address] [address] 10/04/2023 14:55:0610/04/2023 15:59:16History of malignant neoplasm of prostate 072293300X94.46 [id number] KIR[address] [address] 11/18/2023 14:52:31011/18/2023 16:56:33Erectile dysfunction following radical ssbvgdqatazsn803585071172691W00.31 Male urinary stress usehqgcmzudh342997432I55.3 [id number] Adhikari [address] [address] 12/26/2023 15:09:44012/26/2023 15:48:00Erectile dysfunction following radical sndvdcrknwawq993973963847577R06.31 Male urinary stress eikurnbgpsgr688157461U77.3 History of malignant neoplasm of uumnfqxz385138550H38.46 [id number] KIRBY [address] [address] 04/24/2024 15:50:0604/24/2024 16:21:02Erectile dysfunction following radical fwwczohtvpfqq972961357829155G08.31 Male urinary stress ycqznosglddh229411654F17.3 [id number] JENSON, [address] [address] 10/30/2024 16:13:29010/30/2024 16:41:22Erectile dysfunction following radical qqqjeuivplxpk463533309584509C43.31 Male urinary stress kxozsflydoaa271518513X18.3 Malignant neoplasm of gnfwvdhu613803834Z22 Health Concerns Section Related Observation LastModified by Organization Detai ls LastModified Time None Recorded Concern Status LastModified by Organization Details LastModified Time None Recorded Advance Directives Directive N: Payers Insurance Date Sequence Insurance Name Policy Number Policy Garcia Covered Member ID Garcia Member ID Guarantor Name 11/12/2024 1 [facility] ([facility]) [id number] Henok Sol [id number] Henok SolUNITED [id number] J [id number] J Paschke Notes Date Note Type Note Provider Name and Address Orga nization Details Recorded Time 10/04/2023 text/html 58 year old male with history of prostate cancer who is now s/p radical prostatectomy with Dr. Freeman on 09/16/2023 He underwent radical prostatectomy with Dr. Freeman on 09/16/2023His surgical pathology revealed Ramirez 4+3 = 7 disease.His surgical margins were positive, 1 ouqL9xC8, grade group 3Monica ART Adhikari [address] [place] [address],[address], [address], [facility] Ubxbprc8710/04/2023 15:36:text/htmlIncontinenceReported by PatientPatient presents for a urinary incontinence [...] pharmacy database to facilitate and coordinate their care.DUY GOMEZ [address] [place] [address],[address], [place], [address], [facility] Hshdxes8211/18/2023 16:09:3703text/html 58 year old male with history of prostate cancer who is now s/p radical prostatectomy with Dr. Freeman on 09/16/2023 He underwent radical prostatectomy with Dr. Freeman on 09/16/2023His surgical pathology revealed Ramirez 4+3 = 7 disease.His surgical margins were positive, 1 goaW9zM0, grade group 3 His first post-operative PSA [...] and coordinate their care.VIDEO visit lasting 5 minutesART John [address] [place] [address],[address], [address], [facility] [place] Ruxlvwe1912/26/2023 15:37:58004/24/2024text/htmlIncontinenceReported by PatientPatient presents for a urinary incontinence follow up s/p prostatectomy. Steady improvement in urinary incontinence since last visit. He is completing kegel exercises daily. He did not pursue pelvic floor physical therapy as instructed previously. He reports urinary incontinence with bending at thewaist and lifting objects. He is wearing 2 pads daily for incontinence. Erectile DysfunctionReported by PatientPatient presents for a EMMANUEL follow up. Good recovery in erectile function since last visit. He is taking tadalafil 5 mg daily. No side effects noted. Patient is able to achieve an EH S of 3-4 with naomi quate maintenance when taking tadalafil. No penile pain [...] pharmacy database to facilitate and coordinate their care.DUY GOMEZ [address] [place] [address],[address], [address], [facility] Keaesfc8604/24/2024 16:17:12010/30/2024text/htmlIncontinenceReported by PatientPatient presents for a urinary incontinence [...] pharmacy database to facilitate and coordinate their care.DUY GOMEZ [address] [place] [address],[address], [place], [address], [facility] Dfktfgt7710/30/2024 16:18:23
--- OUTSIDE RECORDS SUMMARY | 2025-09-30 23:35 | XMS_ITS | CCD ---
Author Name Interface, J4Oepclvh lity Address [address] [place] [address] [address] [place] [address] [facility] Address [facility] [address] [place] [address] Care Team Providers Care Datastage Consultant Name Role Phone Collins PALOMO, Abner Alford Unavailable Unavailable Reason for Visit NURSE VISIT 15 MIN Social History Date Name Value 06/28/2023 Sex Male
--- OUTSIDE RECORDS SUMMARY | 2025-09-30 23:35 | XMS_ITS | Clinical Summary ---
Author Organization [employer] [facility] [employer] Address [address] [place] [address] Care Team Providers Care Grassland Conservationist Name Role Phone Glo Slaughter Primary Care Provider [phone] Allergies No known active allergies Medications MedicationSigDispense QuantityRefillsLast FilledStart DateEnd DateStatus Lactobacillus acidophilus (PROBIOTIC ORAL) Take by mouth once daily.Active metoprolol tartrate (LOPRESSOR) 50 mg tablet Indications:HTN (hypertension)Take 1 Tablet (50 mg) by mouth two times daily. 180 Tablet 5Active magnesium 250 mg tab Take 1 Tablet (250 mg) by mouth once daily.5Active buPROPion 150 mg Extended-Release tablet Indications:Class 3 severe obesity with body mass index (BMI) of 45.0 to 49.9 in adult (HC)Take 1 Tablet (150 mg) by mouth once daily in the morning. 90 Tablet 5Active lisinopriL (PRINIVIL; ZESTRIL) 40 mg tablet Indications:Essential hypertensionTake 1 Tablet (40 mg) by mouth once daily. 90 Tablet 5Active CPAP Indications:MALU (obstructive sleep apnea)RESMED CPAP (E0601) machine for home use at pressure: 8-15cmw, Choice of mask (A7030 or A7034) w/full face cushion (A7031) x1/mo, nasal cushion (A7032) x2/mo, or nasal pillows (A7033) x 2/mo; Length of Need: 99 months; Frequency of use: Daily 1 Each 5Active apixaban (ELIQUIS) 5 mg tablet Indications:prevent thromboembolism in chronic atrial fibrillationTake 1 Tablet (5 mg) by mouth two times daily. 180 Tablet 5Active Active Problems ProblemNoted DateDiagnosed DateParoxysmal atrial vnerrvesnwaq23/24/2025HTN (hypertension)4Prostate yugayz0910/17/20239100Ishwnrtdatj66/04/2023Umbilical hernia without obstruction and without asrdcxdi04/03/2023Lateral L1-2 Disk Nsxgxuuv36/12/2010Spondylosis, xkhjuiwkjkx14/11/2010 Overview (05/13/2010): L1-2 Kidney stone10/24/2009Displacement of cervical intervertebral disc without rgajjyhuoi16/11/2008OBSTRUCTIVE SLEEP APNEA Overview (08/09/2006): diagnosed 2004 but not treated at this point (08/2006) Seasonal allergic rhinitis due to pollenHYPERLIPIDEMIA MIXEDObesity, unspecified Unspecified essential hypertension Resolved Problems ProblemNoted DateDiagnosed DateResolved DateParoxysmal SVT (supraventricular tachycardia)4010/25/2024Paroxysmal atrial lvcylhhuuljd10/02/2015 05/07/2023olon polyp Overview (01/17/2012): Colonoscopy 01/2012 hyperplastic polyp repeat in 10 years Impaired fasting vymputl52TRIAL FIBRILLATION W/ RVR10/25/2024 Overview (08/09/2006): History of PAFwith multiple chemical and electrical cardioversions Hx intolerance to b-blockers d/t somnilence s/p catheter-based afib ablation 10/13/2005 w/ Dr. Armani ESTRADA discontinued 08/05/06 No recurrence afib s/p ablation until 08/08/06 pm - associated chest pressure and sob with afib and RVR Encounters DateTypeDepartmentCare LftnAzpulksxnkn40/24/2025Telephone [facility] [facility] [place] [address] [place] [address] Cardiology, Anw Lvmddvvdggu46/23/2025 3:30 PM CDTOffice Visit [place] [address] [place] [address] 07/25/2025 2:50 PM CDTOffice Visit [facility] [address] [place] [address] Glo Slaughter PA ER Follow up (Was seen for Afib-was given a blood thinner)07/25/2025Travelfrom Last 3 Months Immunizations ImmunizationAdministration DatesNext DueAMB INFLUENZA, IIV4 (AGE=>6MOS) MDV (Flu Clinic Only)07/04/2019Influenza, IIV3 (Age 6-35 mos)08/10/2017Influenza, IIV3 (Age >=3 years)07/03/2020,07/03/2018,07/03/2017,07/30/2014,07/25/2012,07/08/2011 ,07/09/2010Influenza, KQR649/07/2018Influenza, IIV4 (=>6mos) MDV1 Influenza,CCIIV4 PRESERV FREE07/02/2020,07/04/2019Td (Age >=7 Years)05/08/2004 Tdap05/05/2023,05/29/2013 Family History Medical HistoryRelationNameCommentsHypertensionFatherb 194OtherFatherback problemThyroid DiseaseFatherbenign parathyroid tumorCancerMaternal Auntliver ArthritisMotherb 194OtherMotherdiverticulitisCancer-colonPaternal Grandfather OtherSisterdepressionRelationNameStatusCommentsFatherMaternal AuntMotherPaternal GrandfatherSister Social History Tobacco UseTypesPacks/DayYears UsedDateSmoking Tobacco: NeverSmokeless Tobacco: Never Tobacco Cessation:Counseling Given: Yes Alcohol UseStandard Drinks/WeekCommentsNo0 (1 standard drink = 0.6 oz pure alcohol)PHQ-2AnswerDate RecordedPHQ-2 TOTAL LJVTY865Social Connections AnswerDate RecordedDo you often feel lonely or isolated from those around you?0 10/18/2024Financial Resource StrainAnswerDate RecordedDifficulty of Paying Living Qtfitbeo510/16/2025Difficulty of Paying Living ExpensesNot on file 10/18/2024Food InsecurityAnswerDate RecordedDo you worry your food will run out before you are able to buy more?Transportation NeedsAnswerDate RecordedDoes lack of transportation keep you from medical appointments?1 10/18/2024Does lack of transportation keep you from work, meetings or getting things that you need?Housing StabilityAnswerDate RecordedWhat is your housing situation today?Interpersonal SafetyAnswerDate RecordedAre you being hit, kicked, pushed or yelled at (see row info)?No09/24/2023 Interpersonal Safety Abuse 12 - 18Not on file09/24/2023Interpersonal Safety Ambulatory VulnerabilityNot on file09/24/2023UtilitiesAnswerDate RecordedDo you have trouble paying for utilities (for example, heat, electricity, water, phone)?Sex and Gender InformationValueDate RecordedSex Assigned at BirthNot on fileLegal JwyRorh1210/16/2012 6:38 AM CSTGender IdentityNot on file Sexual IpgkgctfnevAgacghcr12/30/2022 7:33 AM CDTOccupationIndustryJob Start Date Job 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 on fileNot on fileNot on file Last Filed Vital Signs Vital SignReadingTime TakenCommentsBlood Yyvtvqyd006/2207907/25/2025 3:21 PM CDT Bhxwd042707/25/2025 2:41 PM NHGZemddnzzeib26.1 ??C (98.7 ??F)09/24/2023 1:34 PM CSTRespiratory Rerk198311/25/2022 1:34 PM CSTOxygen Mzphuheegz27%07/25/2025 2:41 PM CDTInhaled Oxygen Concentration--Uhnamr127.9 kg (315 lb)07/25/2025 2:41 PM DJUJgacot573.5 cm (5' 8.7)04/24/2025 9:33 AM CDTBody Mass Index46.9204/24/2025 9:33 AM CDT Plan of Treatment Health MaintenanceDue DateLast DoneCommentsHepatitis B series for 19+ (1 of 3 - 19+ 3-dose series)1985Pneumococcal series for age 50+ (1 of 2 - PCV) 1985RSV vaccine for adults or (1 - Risk 50-74 years 1-dose series)02/26/2016Zoster (shingles) series for age 50+ (1 of 2)02/26/2016COVID-19 vaccine series ( - season)2025Influenza Vaccine (#1)2025 07/03/2020, 07/02/2020, 07/04/2019, Additional history existsDepression screening for age 12+, 05/05/2023, 04/06/2022, Additional history existsBMI (ht and wt on same day) for age 18+, 10/23/2024, 04/02/2024, Additional history existsLipids for age 45-10/23/2024, 05/05/2023, 04/06/2022, Additional history existsColonoscopy through age 750///, 06/23/2022, 06/23/2022, Additional history exists Tetanus vwlango90, 05/29/2013, 05/08/2004HIV for age 15-65 Ijavwyqct94/03/2023Hepatitis C screening for age 18-29Grnsxtuoq80/03/2023 Procedures Procedure NamePriorityDate/TimeAssociated DiagnosisCommentsEXTENDED HOLTER Cisenfx1507/26/2025 Paroxysmal atrial fibrillation (HC) CBC WITH AUTO CPWZNXULTTCHKzhlkao57/23/2025 3:26 PM CDT Paroxysmal atrial fibrillation (HC) DTNIaowwev60/23/2025 3:26 PM CDT Paroxysmal atrial fibrillation (HC) COMP METABOLIC ZZDRYVebghfp23/23/2025 3:26 PM CDT Paroxysmal atrial fibrillation (HC) CBC WITH AUTO ROPIZGZDAHTAPamgcqi02/23/2025 3:26 PM CDT Paroxysmal atrial fibrillation (HC) LIPID PANEL W REFLEX MEASURED NGGEmegwmt14/21/2025 3:24 PM MEAT WRAPPER Mixed hyperlipidemia LC HIV-1/O/2, 4TH RQHFFZYSZGPstpkuh57/03/2023 3:16 PM CDT Screening for HIV (human immunodeficiency virus) LC HCV ANTIBODY RFX TO QUANT UVKLbdrwpj95/03/2023 3:16 PM CDT Need for hepatitis C screening test COLONOSCOPY MVYOKPIBWOfydxuq45/21/2022 7:51 AM CDT Screening for colon cancer from Last 3 Months or Most Recently Relevant to Health Maintenance Results * EXTENDED HOLTER (07/26/2025)Specimen (Source)Anatomical Location / Laterality Collection Method / VolumeCollection TimeReceived Time07/26/2025 Narrative Favian Reyes MD - 08/13/2025 12:00 AM MEAT WRAPPER Agree with Findings. Please see scan document for full report. Signed By Favian Reyes MD Procedure Note Favian Reyes MD - 08/13/2025 Agree with Findings. Please see scan document for full report. Signed By Favian Reyes MD Authorizing ProviderResult TypeResult StatusJenngardenia Merlos [place] PAC[facility] SERVICES ORDFinal Result * CBC WITH AUTO DIFFERENTIAL (07/25/2025 3:26 PM CDT)ComponentValueRef RangeTest MethodAnalysis TimePerformed AtPathologist SignatureWHITE BLOOD CELL COUNT8.3 3.8 - 10.8 Thousand/uL07/26/2025 4:03 AM CDTQUEST DIAGNOSTICSRED BLOOD CELL COUNT5.394.20 - 5.80 Million/uL07/26/2025 4:03 AM CDT[facility] JREGIOSQGJ16.613.2 - 17.1 g/dL07/26/2025 4:03 AM CDT[facility] SDUKPESQSE19.838.5 - 50.0 %07/26/2025 4:03 AM CDTQUEST ICAXXSHBHGOKTH15.080.0 - 100.0 fL07/26/2025 4:03 AM CDTQUEST HLPZTAUDZWZUQH12.927.0 - 33.0 pg 07/26/2025 4:03 AM CDTQUEST HSEEDZNWSHGWLNL90.132.0 - 36.0 g/dL07/26/2025 4:03 AM CDTQUEST DIAGNOSTICSComment: For adults, a slight decrease in the calculated MCHC value (in the range of 30 to 32 g/dL) is most likely not clinically significant; however, it should be interpreted with caution in correlation with other red cell parameters and the patient's clinical condition. RDW13.411.0 - 15.0 %07/26/2025 4:03 AM CDTQUEST DIAGNOSTICSPLATELET SEKGC217089 - 400 Thousand/uL07/26/2025 4:03 AM CDTQUEST VUHFGTCXINSMRG53.17.5 - 12.5 fL 07/26/2025 4:03 AM CDTQUEST ZFGTITFCBNNQDMWECSIFVS05.1%07/26/2025 4:03 AM CDT [facility] MQRWHNJXJNFPKMFWSARNGB92.1%07/26/2025 4:03 AM CDT[facility] MONOCYTES9.1%07/26/2025 4:03 AM CDTQUEST DIAGNOSTICSEOSINOPHILS3.6%07/26/2025 4:03 AM CDTQUEST DIAGNOSTICSBASOPHILS1.1%07/26/2025 4:03 AM CDT[facility] ABSOLUTE RAMRIAVSHXT90042886 - 7800 cells/uL07/26/2025 4:03 AM CDTQUEST DIAGNOSTICSABSOLUTE NVYVXMAKLWT3323147 - 3900 cells/uL07/26/2025 4:03 AM CDT [facility] DIAGNOSTICSABSOLUTE ADCBCOWFC173465 - 950 cells/uL07/26/2025 4:03 AM CDT [facility]AGNOSTICSABSOLUTE VVEZIHJMAUA96113 - 500 cells/uL07/26/2025 4:03 AM CDT [facility]NOSTICSABSOLUTE RGPOFGKWB327 - 200 cells/uL07/26/2025 4:03 AM CDTQUEST DIAGNOSTICSSpecimen (Source)Anatomical Location / LateralityCollection Method / VolumeCollection TimeReceived TimeBloodBLOOD SPECIMEN / UnknownQuest Collect / Tuyicvw4007/25/2025 3:26 PM CDT1 3:27 PM CDT Narrative Authorizing ProviderResult TypeResult StatusGlo Slaughter PAHEMATOLOGYFinal ResultPerforming OrganizationAddressty/State/ZIP CodePhone Number [facility] [address] [address], [place] [phone] * TSH (07/25/2025 3:26 PM CDT)ComponentValueRef RangeTest MethodAnalysis Time Performed AtPathologist SignatureTSH1.240.40 - 4.50 mIU/L1 6:00 AM CDTQUEST DIAGNOSTICSSpecimen (Source)Anatomical Location / Laterality Collection Method / VolumeCollection TimeReceived TimeBloodBLOOD SPECIMEN / UnknownQuest Collect / Fgfhomv8307/25/2025 3:26 PM CDT1 3:27 PM CDT Narrative Authorizing ProviderResult TypeResult StatusGlo Slaughter PACHEMISTRYFinal ResultPerforming OrganizationAddressCity/State/[facility] CodePhone Number [facility] [address] [address], [place] [phone] * COMP METABOLIC PANEL (07/25/2025 3:26 PM CDT)ComponentValueRef RangeTest MethodAnalysis TimePerformed AtPathologist SopgvavlhRJOICD810086 - 146 mmol/L 07/26/2025 3:40 AM CDTQUEST DIAGNOSTICSPOTASSIUM4.03.5 - 5.3 mmol/L1 3:40 AM CDTQUEST TIRROZMZIVYUBNXXWFB79096 - 110 mmol/L1 3:40 AM CDT [facility] DIAGNOSTICSCARBON AEALTXA1503 - 32 mmol/L1 3:40 AM CDTQUEST WRKDJVZLEDDEPLEZFZ1862 - 99 mg/dL07/26/2025 3:40 AM CDT[facility] Comment: ? Fasting reference interval CALCIUM9.58.6 - 10.3 mg/dL07/26/2025 3:40 AM CDTQUEST DIAGNOSTICSCREATININE0.91 0.70 - 1.30 mg/dL07/26/2025 3:40 AM CDTQUEST DIAGNOSTICSBUN/CREATININE RATIOSEE NOTE:6 - 22 (calc)07/26/2025 3:40 AM CDTQUEST DIAGNOSTICSComment: ?? Not Reported: BUN and Creatinine are within ?? reference range. ? EGFR97> OR = 60 mL/min/1.63e93807/26/2025 3:40 AM CDTQUEST DIAGNOSTICSALBUMIN4.5 3.6 - 5.1 g/dL07/26/2025 3:40 AM CDTQUEST DIAGNOSTICSPROTEIN, TOTAL7.26.1 - 8.1 g/dL07/26/2025 3:40 AM CDTQUEST DIAGNOSTICSBILIRUBIN, TOTAL0.60.2 - 1.2 mg/dL 07/26/2025 3:40 AM CDTQUEST DIAGNOSTICSALKALINE JLLNIEZXCDP4197 - 144 U/L 07/26/2025 3:40 AM CDTQUEST LUCNTZRNPGIKSA188 - 46 U/L1 3:40 AM CDT [facility] AUHIBZJUJGNXAT6217 - 35 U/L1 3:40 AM CDTQUEST DIAGNOSTICSUREA NITROGEN (BUN)157 - 25 mg/dL07/26/2025 3:40 AM CDTQUEST DIAGNOSTICSGLOBULIN2.7 1.9 - 3.7 g/dL (calc)07/26/2025 3:40 AM CDTQUEST DIAGNOSTICSALBUMIN/GLOBULIN RATIO1.71.0 - 2.5 (calc)07/26/2025 3:40 AM CDTQUEST DIAGNOSTICSSpecimen (Source) Anatomical Location / LateralityCollection Method / VolumeCollection Time Received TimeBloodBLOOD SPECIMEN / UnknownQuest Collect / Ruopsge1607/25/2025 3:26 PM CDT1 3:27 PM CDT Narrative Authorizing ProviderResult TypeResult StatusJenngardenia Slaughter PACHEMISTRYFinal ResultPerforming OrganizationAddressCity/State/ZIP CodePhone Number [facility] [id number] [place] [address], * (ABNORMAL) LIPID PANEL W REFLEX MEASURED LDL (10/23/2024 3:24 PM MEAT WRAPPER)Component ValueRef RangeTest MethodAnalysis TimePerformed AtPathologist Signature CHOLESTEROL, IYYKB474(H)<200 mg/dLInscription House Health Center [facility] s.r.l [facility] HospitaleHDL NGIVYOWWMJE89 (L)> OR = 40 mg/dLInscription House Health Center WISE s.r.l JwcpPXZPPSWYHVJKV025(H)<150 mg/dL SupportieLifecare Medical CentereComment: If a non-fasting specimen was collected, consider repeat triglyceride testing on a fasting specimen if clinically indicated. Felicity et al. J. of Clin. Lipidol. 2015;9:129-169. LDL-JBYDRNIAJIZ238(H)mg/dL (calc)[facility] s.[facility] HospitaleComment: Reference range: <100 Desirable range <100 mg/dL for primary prevention; <70 mg/dL for patients with CHD or diabetic patients with > or = 2 CHD risk factors. LDL-C is now calculated using the Adriana calculation, which is a validated novel method providing better accuracy than the Friedewald equation in the estimation of LDL-C. Willard SS et al. JAMES. 2013;310(19): 4920-5891 (http://education.Conformiq/faq/NYL938) CHOL/HDLC RATIO5.9(H)<5.0 (calc)[employer] [facility] HospitaleNON HDL CHOLESTEROL 177(H)<130 mg/dL (calc)[employer] [facility] HospitaleComment: For patients with diabetes plus 1 major ASCVD risk factor, treating to a non-HDL-C goal of <100 mg/dL (LDL-C of <70 mg/dL) is considered a therapeutic option. Specimen (Source)Anatomical Location / LateralityCollection Method / Volume Collection TimeReceived TimeBloodBLOOD SPECIMEN / Btprdbl4810/23/2024 3:24 PM MEAT WRAPPER 10/23/2024 3:24 PM MEAT WRAPPER Narrative Authorizing ProviderResult TypeResult StatusJenngardenia Slaughter PACHEMISTRYFinal ResultPerforming OrganizationAddressCity/State/ZIP CodePhone Number [facility] [address] [place] [address], [place] [facility]St[facility] [address] [place] [address] * LC HCV ANTIBODY RFX TO QUANT PCR (05/05/2023 3:16 PM CDT)ComponentValueRef RangeTest MethodAnalysis TimePerformed AtPathologist SignatureHCV AbNon ReactiveNon Hbiufccq26/06/2023 7:07 AM CDTLUNIMED MEDICAL [facility]ENTER [facility]OT[facility] TESTING (CET)Specimen (Source)Anatomical Location / Laterality Collection Method / VolumeCollection TimeReceived TimeBloodBLOOD SPECIMEN / UnknownVenipuncture / Hdmtbhl3105/05/2023 3:16 PM CDT05/05/2023 3:17 PM CDT Narrative [facility] TEST[facility] (CET) - 05/08/2023 7:07 AM CDT Performed at: [address] [place] [address] ??[phone] Parachute Packer: Will Bautista MD, Phone: ??[phone] Authorizing ProviderResult TypeResult StatusJenngardenia Slaughter PALABORATORYFinal ResultPerforming OrganizationAddressCity/State/ZIP CodePhone Number [facility] (CET) [address] [place] [address] * LC HIV-1/O/2, 4TH GENERATION (05/05/2023 3:16 PM CDT)ComponentValueRef Range Test MethodAnalysis TimePerformed AtPathologist SignatureHIV Scr 4th GenNon ReactiveNon Wkuazmcn13/06/2023 7:07 AM [facility] (CET)Comment: HIV Negative HIV-1/HIV-2 antibodies and HIV-1 p24 antigen were NOT detected. There is no laboratory evidence of HIV infection. Specimen (Source)Anatomical Location / LateralityCollection Method / Volume Collection TimeReceived TimeBloodBLOOD SPECIMEN / UnknownVenipuncture / Unknown 05/05/2023 3:16 PM CDT05/05/2023 3:17 PM CDT Narrative [facility] (CET) - 05/08/2023 7:07 AM CDT Performed at: [address] [place] [address] ??[id number] Parachute Packer: Will Bautista MD, Phone: ??[phone] Authorizing ProviderResult TypeResult StatusJenngardenia Slaughter PALABORATORYFinal ResultPerforming OrganizationAddressCity/State/ZIP CodePhone Number [facility] (CET) [address] [place] [address], * COLONOSCOPY (06/23/2022 7:37 AM CDT)Specimen (Source)Anatomical Location / LateralityCollection Method / VolumeCollection TimeReceived Time06/23/2022 7:37 AM CDT Narrative Transcriptions Willard Matos [...] 7:37 AM Procedure Code(s): --- Professional --- 13976, Colonoscopy, flexible; diagnostic, including collection of specimen(s) bybrushing or washing, when performed (separateprocedure) Diagnosis Code(s): --- Professional --- Z12.11, Encounter for screening formalignant neoplasm of colon K57.30, Diverticulosis of large intestine without perforation or abscess withoutbleeding CPT copyright 2020 [employer]. All rights reserved. The codes documented in this report are preliminary and upon medical billing coder reviewmay be revised to meet current compliance requirements. Scope In: 8:35:54 AM Scope Withdrawal Time 0 hours 7 minutes 43 seconds Scope Out: 8:48:27 AM Authorizing ProviderResult TypeResult StatusMarglenny Matos MDPROCEDURE ORD Final Result from Last 3 Months or Most Recently Relevant to Health Maintenance Insurance Advance Directives TypeDate RecordedPatient RepresentativeExplanationHealthcare Jtlbohwnm37/31/2023 08/02/2023 * Full Code (Latest Code Status on File) Date ActivatedDate NragylyihliDmjerajs75/15/2023 8:03 AM09/17/2023 3:45 PM QuestionAnswerCommentsCode Status Discussion:* Unable to Assess Preferences, Provider to review later * Full Code Date ActivatedDate InactivatedComments06/21/2015 11:28 PM06/22/2015 2:00 PM * Full Code Date ActivatedDate InactivatedComments05/28/2008 11:34 AM05/29/2008 1:24 PM * Full Code Date ActivatedDate BbmreizccdoDkjvawlg02/7/2006 4:19 PM08/10/2006 8:33 PM * Full Code Date ActivatedDate HclbmiyoshjYnmomdow04/7/2006 3:14 PM08/09/2006 4:19 PM Care Teams Team MemberRelationshipSpecialtyStart DateEnd Date Glo Slaughter PA [address] [place] [address] PCP - GeneralPhysician Assistant05/07/23
[2025-09-30 23:47] VITALS: BP 172/117; PULSE 84; RESP 20; TEMP 36.6; O2SAT 95; BMI 45.8
[2025-10-01] VITALS (32 sets, daily range): BP systolic 123–162; BP diastolic 79–101; PULSE 78–98; RESP 13–46; O2SAT 89–98
--- NOTE | 2025-10-01 00:15 | ED_ITS ---
HPI - General Adult General Chief complaint: Arrhythmia/Palpitations <Soraida De MD - Last Filed: 10/01/25 04:06> Stated complaint: A Fib <Soraida De MD - Last Filed: 10/01/25 04:06> Time Seen by Provider: 09/30/25 23:58 <Soraida De MD - Last Filed: 10/01/25 04:06> Source: patient <Soraida De MD - Last Filed: 10/01/25 04:06> Mode of arrival: ambulatory <Soraida De MD - Last Filed: 10/01/25 04:06> Limitations: no limitations <Soraida De MD - Last Filed: 10/01/25 04:06> History of Present Illness HPI narrative: 60-year-old male with known history of atrial fibrillation, intermittent presents to the ED with feeling of flipping into AFib that woke him from sleep. Patient very confident that he was not in AFib when he went to bed around 8:30 p.m.. 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 No recent fevers, no trauma or injury. He is anticoagulated on Eliquis. No recent respiratory or other cardiovascular changes. He is not experiencing any chest pain. His last cardioversion was in July. Has had several previously. He is status post ablation as well. He uses metoprolol as rate control, lisinopril for hypertension. He does have pending appointments with cardiology but admits that there has been quite a delay in getting in due to appointment availability. He has had no recent major illness, fevers or nausea and vomiting. He does take a magnesium supplement as well. No signs of unexpected bleeding. Denies any other acute concerns today. Has had several cardioversions in the past and is interested in cardioversion again today. Has not previously had success with IV diltiazem or other similar treatments. Does not wear a apple watch, fitness monitor or other similar device Past medical history notable for hypertension, atrial fibrillation. Home meds are Eliquis, lisinopril, metoprolol. No known drug allergies. ROS is notable for the irregular heart rate only, otherwise denies times 12 systems. <Soraida De MD - Last Filed: 10/01/25 04:06> Related Data Home medications: Home Medications ?Medication ?Instructions ?Recorded ?Confirmed tadalafil 5 mg tablet 5 mg PO DAILY 03/02/2409/30 lisinopril 40 mg tablet 40 mg PO DAILY 04/27/2509/03 metoprolol tartrate 50 mg tablet 25 mg PO BID 04/27/25 09/30/25 Previous Rx's ?Medication ?Instructions ?Recorded apixaban 5 mg tablet (Eliquis) 5 mg PO BID #60 tabs <Soraida De MD - Last Filed: 10/01/25 04:06> Allergies/adverse reactions: Allergies Allergy/AdvReac Type Severity Reaction Status Date / Time No Known Drug Allergies Allergy Verified 08/12/24 09:33 <Soraida De MD - Last Filed: 10/01/25 04:06> [facility] Medical History: Medical History Atrial fibrillation with rapid ventricular response ?I48.91 - Unspecified atrial fibrillation (ICD-10) Paroxysmal SVT (supraventricular tachycardia) ?I47.10 - Supraventricular tachycardia, unspecified (ICD-10) History of cardioversion ?Z92.89 - Personal history of other medical treatment (ICD-10) Sleep apnea ?G47.30 - Sleep apnea, unspecified (ICD-10) Umbilical hernia without obstruction and without gangrene ?K42.9 - Umbilical hernia without obstruction or gangrene (ICD-10) Spondylosis, lumbosacral ?M47.817 - Spondylosis without myelopathy or radiculopathy, lumbosacral region (ICD-10) Prostate cancer ?C61 - Malignant neoplasm of prostate (ICD-10) Prediabetes ?R73.03 - Prediabetes (ICD-10) Pneumonia due to COVID-19 virus ?U07.1 - COVID-19 (ICD-10) ?J12.82 - Pneumonia due to coronavirus disease 2019 (ICD-10) Obesity, unspecified ?E66.9 - Obesity, unspecified (ICD-10) Hyperlipidemia, mixed ?E78.2 - Mixed hyperlipidemia (ICD-10) Cervical disc displacement ?M50.20 - Other cervical disc displacement, unspecified cervical region (ICD- 10) Colon polyp ?K63.5 - Polyp of colon (ICD-10) Kidney stone ?N20.0 - Calculus of kidney (ICD-10) Hypertension ?I10 - Essential (primary) hypertension (ICD-10) Atrial fibrillation ?I48.91 - Unspecified atrial fibrillation (ICD-10) <Soraida De MD - Last Filed: 10/01/25 04:06> Surgical History: Surgical History History of testicular surgery ?Z98.890 - Other specified postprocedural states (ICD-10) History of colonoscopy ?Z98.890 - Other specified postprocedural states (ICD-10) History of cervical discectomy ?Z98.890 - Other specified postprocedural states (ICD-10) History of prostatectomy ?Z90.79 - Acquired absence of other genital organ(s) (ICD-10) S/P ablation of atrial fibrillation ?Z98.890 - Other specified postprocedural states (ICD-10) ?Z86.79 - Personal history of other diseases of the circulatory system (ICD- 10) <Soraida De MD - Last Filed: 10/01/25 04:06> Social History: Social History Smoking Status: Never smoker Second hand tobacco smoke exposure: No How often do you have a drink containing alcohol: monthly or less AUDIT-C Alcohol total score: 1 Non-prescribed substance use: denies use <Soraida De MD - Last Filed: 10/01/25 04:06> Exam Const: Vital Signs, click to edit/add: Vital Signs - 24 hr 09/30/25 23:47 10/01/25 00:37 10/01/25 00:39 Temperature 97.8 F Pulse Rate 89 92 Pulse Rate [Pulse Oximeter] 84 Respiratory Rate 20 21 46 H Blood Pressure 136/96 H 136/96 H Blood Pressure [Ri ght Upper Arm] 172/117 H Pulse Oximetry 95 95 97 Oxygen Delivery Me thod Room Air 10/01/25 00:45 10/01/25 00:48 10/01/25 01:00 Temperature Pulse Rate 87 84 98 Pulse Rate [Pulse Oximeter] Respiratory Rate 20 20 20 Blood Pressure 140/93 H Blood Pressure [Ri ght Upper Arm] Pulse Oximetry 97 97 97 Oxygen Delivery Me thod 10/01/25 01:02 10/01/25 01:07 10/01/25 01:12 Temperature Pulse Rate 85 88 83 Pulse Rate [Pulse Oximeter] Respiratory Rate 18 20 18 Blood Pressure 153/96 H 141/95 H 135/85 Blood Pressure [Ri ght Upper Arm] Pulse Oximetry 97 93 90 Oxygen Delivery Me thod 10/01/25 01:13 10/01/25 01:15 10/01/25 01:17 Temperature Pulse Rate 82 82 81 Pulse Rate [Pulse Oximeter] Respiratory Rate 15 14 13 Blood Pressure 133/84 Blood Pressure [Ri ght Upper Arm] Pulse Oximetry 90 90 91 Oxygen Delivery Me thod 10/01/25 01:22 10/01/25 01:27 10/01/25 01:30 Temperature Pulse Rate 83 80 81 Pulse Rate [Pulse Oximeter] Respiratory Rate 15 15 16 Blood Pressure 129/84 129/82 Blood Pressure [Ri ght Upper Arm] Pulse Oximetry 90 89 90 Oxygen Delivery Me thod 10/01/25 01:32 10/01/25 01:32 10/01/25 01:32 Temperature Pulse Rate 81 81 81 Pulse Rate [Pulse Oximeter] Respiratory Rate 13 13 13 Blood Pressure 124/82 124/82 124/82 Blood Pressure [Ri ght Upper Arm] Pulse Oximetry 91 91 91 Oxygen Delivery Me thod 10/01/25 01:32 10/01/25 01:37 10/01/25 01:42 Temperature Pulse Rate 81 81 82 Pulse Rate [Pulse Oximeter] Respiratory Rate 13 17 13 Blood Pressure 124/82 130/79 135/87 Blood Pressure [Ri ght Upper Arm] Pulse Oximetry 91 98 98 Oxygen Delivery Me thod 10/01/25 01:45 10/01/25 01:47 10/01/25 01:52 Temperature Pulse Rate 82 81 81 Pulse Rate [Pulse Oximeter] Respiratory Rate 13 17 17 Blood Pressure 136/83 128/85 Blood Pressure [Ri ght Upper Arm] Pulse Oximetry 97 97 97 Oxygen Delivery Me thod 10/01/25 01:57 10/01/25 02:00 10/01/25 02:01 Temperature Pulse Rate 82 82 80 Pulse Rate [Pulse Oximeter] Respiratory Rate 16 16 16 Blood Pressure 140/85 H Blood Pressure [Ri ght Upper Arm] Pulse Oximetry 95 95 96 Oxygen Delivery Me thod 10/01/25 02:01 10/01/25 02:08 10/01/25 02:12 Temperature Pulse Rate 80 81 80 Pulse Rate [Pulse Oximeter] Respiratory Rate 16 18 16 Blood Pressure 129/84 123/85 Blood Pressure [Ri ght Upper Arm] Pulse Oximetry 96 96 95 Oxygen Delivery Me thod 10/01/25 02:15 10/01/25 02:17 10/01/25 02:28 Temperature Pulse Rate 84 81 84 Pulse Rate [Pulse Oximeter] Respiratory Rate 18 18 18 Blood Pressure 134/86 162/101 H Blood Pressure [Ri ght Upper Arm] Pulse Oximetry 95 95 98 Oxygen Delivery Me thod 10/01/25 02:30 10/01/25 02:33 10/01/25 02:37 Temperature Pulse Rate 83 80 79 Pulse Rate [Pulse Oximeter] Respiratory Rate 17 17 17 Blood Pressure 132/93 H 124/83 Blood Pressure [Ri ght Upper Arm] Pulse Oximetry 97 96 96 Oxygen Delivery Me thod 10/01/25 02:42 Temperature Pulse Rate 78 Pulse Rate [Pulse Oximeter] Respiratory Rate 16 Blood Pressure 130/94 H Blood Pressure [Ri ght Upper Arm] Pulse Oximetry 96 Oxygen Delivery Me thod <Soraida De MD - Last Filed: 10/01/25 04:06> Vital Signs, click to edit/add: Vital Signs - 24 hr 09/30/25 23:47 10/01/25 00:37 10/01/25 00:39 Temperature 97.8 F Pulse Rate 89 92 Pulse Rate [Pulse Oximeter] 84 Respiratory Rate 20 21 46 H Blood Pressure 136/96 H 136/96 H Blood Pressure [Ri ght Upper Arm] 172/117 H Pulse Oximetry 95 95 97 Oxygen Delivery Me thod Room Air 10/01/25 00:45 10/01/25 00:48 10/01/25 01:00 Temperature Pulse Rate 87 84 98 Pulse Rate [Pulse Oximeter] Respiratory Rate 20 20 20 Blood Pressure 140/93 H Blood Pressure [Ri ght Upper Arm] Pulse Oximetry 97 97 97 Oxygen Delivery Me thod 10/01/25 01:02 10/01/25 01:07 10/01/25 01:12 Temperature Pulse Rate 85 88 83 Pulse Rate [Pulse Oximeter] Respiratory Rate 18 20 18 Blood Pressure 153/96 H 141/95 H 135/85 Blood Pressure [Ri ght Upper Arm] Pulse Oximetry 97 93 90 Oxygen Delivery Me thod 10/01/25 01:13 10/01/25 01:15 10/01/25 01:17 Temperature Pulse Rate 82 82 81 Pulse Rate [Pulse Oximeter] Respiratory Rate 15 14 13 Blood Pressure 133/84 Blood Pressure [Ri ght Upper Arm] Pulse Oximetry 90 90 91 Oxygen Delivery Me thod 10/01/25 01:22 10/01/25 01:27 10/01/25 01:30 Temperature Pulse Rate 83 80 81 Pulse Rate [Pulse Oximeter] Respiratory Rate 15 15 16 Blood Pressure 129/84 129/82 Blood Pressure [Ri ght Upper Arm] Pulse Oximetry 90 89 90 Oxygen Delivery Me thod 10/01/25 01:32 10/01/25 01:32 10/01/25 01:32 Temperature Pulse Rate 81 81 81 Pulse Rate [Pulse Oximeter] Respiratory Rate 13 13 13 Blood Pressure 124/82 124/82 124/82 Blood Pressure [Ri ght Upper Arm] Pulse Oximetry 91 91 91 Oxygen Delivery Me thod 10/01/25 01:32 10/01/25 01:37 10/01/25 01:42 Temperature Pulse Rate 81 81 82 Pulse Rate [Pulse Oximeter] Respiratory Rate 13 17 13 Blood Pressure 124/82 130/79 135/87 Blood Pressure [Ri ght Upper Arm] Pulse Oximetry 91 98 98 Oxygen Delivery Me thod 10/01/25 01:45 10/01/25 01:47 10/01/25 01:52 Temperature Pulse Rate 82 81 81 Pulse Rate [Pulse Oximeter] Respiratory Rate 13 17 17 Blood Pressure 136/83 128/85 Blood Pressure [Ri ght Upper Arm] Pulse Oximetry 97 97 97 Oxygen Delivery Me thod 10/01/25 01:57 10/01/25 02:00 10/01/25 02:01 Temperature Pulse Rate 82 82 80 Pulse Rate [Pulse Oximeter] Respiratory Rate 16 16 16 Blood Pressure 140/85 H Blood Pressure [Ri ght Upper Arm] Pulse Oximetry 95 95 96 Oxygen Delivery Me thod 10/01/25 02:01 10/01/25 02:08 10/01/25 02:12 Temperature Pulse Rate 80 81 80 Pulse Rate [Pulse Oximeter] Respiratory Rate 16 18 16 Blood Pressure 129/84 123/85 Blood Pressure [Ri ght Upper Arm] Pulse Oximetry 96 96 95 Oxygen Delivery Me thod 10/01/25 02:15 10/01/25 02:17 10/01/25 02:28 Temperature Pulse Rate 84 81 84 Pulse Rate [Pulse Oximeter] Respiratory Rate 18 18 18 Blood Pressure 134/86 162/101 H Blood Pressure [Ri ght Upper Arm] Pulse Oximetry 95 95 98 Oxygen Delivery Me thod 10/01/25 02:30 10/01/25 02:33 10/01/25 02:37 Temperature Pulse Rate 83 80 79 Pulse Rate [Pulse Oximeter] Respiratory Rate 17 17 17 Blood Pressure 132/93 H 124/83 Blood Pressure [Ri ght Upper Arm] Pulse Oximetry 97 96 96 Oxygen Delivery Me thod 10/01/25 02:42 Temperature Pulse Rate 78 Pulse Rate [Pulse Oximeter] Respiratory Rate 16 Blood Pressure 130/94 H Blood Pressure [Ri ght Upper Arm] Pulse Oximetry 96 Oxygen Delivery Me thod <Edvin Thrasher MD - Last Filed: 10/13/25 20:24> Documenting provider has reviewed patient's vital signs: yes <Soraida De MD - Last Filed: 10/01/25 04:06> Common normals: no apparent distress and alert <Soraida De MD - Last Filed: 10/01/25 04:06> General appearance: cooperative and well kempt <Soraida De MD - Last Filed: 10/01/25 04:06> HENMT: Common normals: normocephalic, moist oral mucous membranes and dentition normal <Soraida De MD - Last Filed: 10/01/25 04:06> Head and scalp: normocephalic <Soraida De MD - Last Filed: 10/01/25 04:06> Face and sinus: normal facial exam <Soraida De MD - Last Filed: 10/01/25 04:06> Other: Mallampati 3 <MD Marcin Keene Last Filed: 10/01/25 04:06> Eye: Common normals: conjunctivae normal <MD Marcin Keene Last Filed: 10/01/25 04:06> General eye: normal appearance of both eyes <MD Marcin Keene Last Filed: 10/01/25 04:06> Conjunctiva: conjunctiva(e) normal <MD Marcin Keene Last Filed: 10/01/25 04:06> Neck & C-Spine: Common normals: full ROM and no lymphadenopathy <MD Marcin Keene Last Filed: 10/01/25 04:06> General: normal visual inspection <MD Marcin Keene Last Filed: 10/01/25 04:06> Resp: Common normals: normal respiratory effort, no use of accessory muscles and clear to auscultation bilaterally <MD Marcin Keene Last Filed: 10/01/25 04:06> Effort & inspection: able to speak in complete sentences <MD Marcin Keene Last Filed: 10/01/25 04:06> Auscultation: clear to auscultation bilaterally <MD Marcin Keene Last Filed: 10/01/25 04:06> Cardio: Other: Irregular, but no murmurs. Rate is around 100 at the time of mild dilatation. Positive S1-S2 <MD Marcin Keene Last Filed: 10/01/25 04:06> GI: Common normals: Normal to inspection, nondistended, normoactive bowel sounds present, soft to palpation, non-tender, no hepatosplenomegaly and no masses <MD Marcin Keene Last Filed: 10/01/25 04:06> Palpation: soft and no hepatosplenomegaly <MD Marcin Keene Last Filed: 10/01/25 04:06> Extremity: Common normals: normal to inspection and normal capillary refill <MD Marcin Keene Last Filed: 10/01/25 04:06> Neuro: Common normals: moves all extremities <Soraida De MD - Last Filed: 10/01/25 04:06> Sensorium/orientation: alert <MD Marcin Keene Last Filed: 10/01/25 04:06> Speech: speech normal <Soraida De MD - Last Filed: 10/01/25 04:06> Motor exam: strength 5/5 throughout <Soraida De MD - Last Filed: 10/01/25 04:06> Psych: Appearance: well kempt <Soraida De MD - Last Filed: 10/01/25 04:06> Attitude: engaged <MD Marcin Keene Last Filed: 10/01/25 04:06> Activity/motor behavior: appropriate eye contact <MD Marcin Keene st Filed: 10/01/25 04:06> Mood and affect: euthymic mood <Soraida De MD - Last Filed: 10/01/25 04:06> Attention/concentration: attention grossly intact <Soraida De MD - Last Filed: 10/01/25 04:06> Insight: insight good <MD Marcin Keene Last Filed: 10/01/25 04:06> Judgement: judgment good <Soraida De MD - Last Filed: 10/01/25 04:06> Skin: Common normals: no rashes or lesions noted <Soraida De MD - Last Filed: 10/01/25 04:06> General skin exam: no rashes or lesions noted <MD Marcin Keene Last Filed: 10/01/25 04:06> Course Course ED Course: 60-year-old male with intermittent AFib presenting with AFib of reliably less than 4 hours duration. Anticoagulated on Eliquis. We discussed risks and benefits of cardioversion. He would like to proceed with this. Bedside EKG is reviewed during the time of initial interview, clearly showing AFib which matches with exam. Will place peripheral IV, obtain basic labs to ensure that there is no electrolyte abnormality or other risk factors that would make cardioversion less successful. Counseled patient on risks and benefits of procedure including risk of stroke, feel procedure, airway emergency, others. We discussed propofol for sedation. 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 We would be able to move him to a smaller room after the 1st [address] Thrasher will stay for procedure and anesthesia assistance, will have separate documentation. Anesthesia forms completed. Procedure: electrical Cardioversion risks and benefits discussed with patient, written consent is obtained. Patient was given 0.5 L of normal saline prior to procedure and pre oxygenated. Dr. Thrasher performing propofol sedation, see separate documentation. Electrical pads are placed, correct alignment confirmed by myself. Patient was placed on defibrillator monitor, synchronized with good capture. Once I had ensured appropriate anesthesia, patient is given a single cardioversion at 200 joules with excellent success in conversion to normal sinus rhythm. Patient did have some apnea following procedure which was managed initially with just a jaw thrust maneuver and then bag mouth Vasc for about 5 minutes. Patient gradually awoke with no abnormal sequelae. Confirmatory EKG showed normal sinus rhythm. Patient will need to be monitored for 4 hours as he does not have a ride home in the wee hours. Update: I checked on him about a 1/2 hour later and he is moving all extremities, speaking normally, agrees to rest, asymptomatic at this time. Second update check on patient 90 minutes after procedure, he is feeling well. Vitals are all normal, off of oxygen. Sitting upright in bed, a little chest discomfort but otherwise no concerns. Counseled him that he is free to go home with his family or he would have to wait 4 hours postprocedure because of the propofol to be able to drive. He will call his family. I do give him some Tylenol 1000 mg p.o. x1 for the chest discomfort. Counseled him on typical alarm symptoms, typical management of AFib. Continue metoprolol and Eliquis. Written instructions are provided as well. <Soraida De MD - Last Filed: 10/01/25 04:06> Vital Signs Vital signs: Initial Vital Signs Temperature 97.8 F 09/30/25 23:47 Temperature Source Temporal Artery Scan 09/30/25 23:47 Pulse Rate 84 09/30/25 23:47 Respiratory Rate 20 09/30/25 23:47 Blood Pressure 172/117 H 09/30/25 23:47 Blood Pressure Mean 135 H 09/30/25 23:47 Blood Pressure Position Sitting 09/30/25 23:47 Pulse Oximetry 95 09/30/25 23:47 Oxygen Delivery Method Room Air 09/30/25 23:47 Vital Signs Temperature 97.8 F 09/30/25 23:47 Pulse Rate 84 09/30/25 23:47 Respiratory Rate 20 09/30/25 23:47 Blood Pressure 172/117 H 09/30/25 23:47 Pulse Oximetry 95 09/30/25 23:47 Oxygen Delivery Method Room Air 09/30/25 23:47 Temperature 97.8 F 09/30/25 23:47 Pulse Rate 78 10/01/25 02:42 Respiratory Rate 16 10/01/25 02:42 Blood Pressure 130/94 H 10/01/25 02:42 Pulse Oximetry 96 10/01/25 02:42 Oxygen Delivery Method Room Air 09/30/25 23:47 <Soraida De MD - Last Filed: 10/01/25 04:06> Initial Vital Signs Temperature 97.8 F 09/30/25 23:47 Temperature Source Temporal Artery Scan 09/30/25 23:47 Pulse Rate 84 09/30/25 23:47 Respiratory Rate 20 09/30/25 23:47 Blood Pressure 172/117 H 09/30/25 23:47 Blood Pressure Mean 135 H 09/30/25 23:47 Blood Pressure Position Sitting 09/30/25 23:47 Pulse Oximetry 95 09/30/25 23:47 Oxygen Delivery Method Room Air 09/30/25 23:47 Vital Signs Temperature 97.8 F 09/30/25 23:47 Pulse Rate 84 09/30/25 23:47 Respiratory Rate 20 09/30/25 23:47 Blood Pressure 172/117 H 09/30/25 23:47 Pulse Oximetry 95 09/30/25 23:47 Oxygen Delivery Method Room Air 09/30/25 23:47 Temperature 97.8 F 09/30/25 23:47 Pulse Rate 78 10/01/25 02:42 Respiratory Rate 16 10/01/25 02:42 Blood Pressure 130/94 H 10/01/25 02:42 Pulse Oximetry 96 10/01/25 02:42 Oxygen Delivery Method Room Air 09/30/25 23:47 <Edvin Thrasher MD - Last Filed: 10/13/25 20:24> Medications Administered Medications: Discontinued Medications Generic Name Dose Route Start Last Admin Trade Name Freq PRN Reason Stop Dose Admin Acetaminophen 1,000 mg 10/01/25 03:08 10/01/25 03:27 Acetaminophen 500 Mg Tablet PO 10/01/25 03:09 1,000 mg ONCE ONE Administration Sodium Chloride 500 mls @ 500 mls/hr 10/01/25 00:15 10/01/25 01:55 0.9 % Sodium Chloride 500 Ml IV 10/01/25 01:14 Infused .Q1H ENA Infusion Propofol 100 mg 10/01/25 00:16 10/01/25 01:12 Propofol 10 Mg/Ml Inj IVP 10/01/25 00:17 80 mg ONCE ONE Administration <Soraida De MD - Last Filed: 10/01/25 04:06> Discontinued Medications Generic Name Dose Route Start Last Admin Trade Name Freq PRN Reason Stop Dose Admin Acetaminophen 1,000 mg 10/01/25 03:08 10/01/25 03:27 Acetaminophen 500 Mg Tablet PO 10/01/25 03:09 1,000 mg ONCE ONE Administration Sodium Chloride 500 mls @ 500 mls/hr 10/01/25 00:15 10/01/25 01:55 0.9 % Sodium Chloride 500 Ml IV 10/01/25 01:14 Infused .Q1H ENA Infusion Propofol 100 mg 10/01/25 00:16 10/01/25 01:12 Propofol 10 Mg/Ml Inj IVP 10/01/25 00:17 80 mg ONCE ONE Administration <Edvin Thrasher MD - Last Filed: 10/13/25 20:24> Medical Decision Making Lab Data Lab results reviewed: Yes I reviewed the patient's lab results <Soraida De MD - Last Filed: 10/01/25 04:06> Lab results narrative: Labs all reassuring, as expected. <Soraida De MD - Last Filed: 10/01/25 04:06> Labs: Lab Results 10/01/25 Range/Units 00:05 WBC 10.05 (4.50-11.00) K/uL RBC 5.65 (4.30-5.90) m/uL Hgb 16.1 (13.5-17.5) gm/dL Hct 47.7 (37.0-53.0) % MCV 84 (80-100) fL MCH 29 (26-34) pg MCHC 34 (32-36) gm/dL RDW Coeff of Susie 13.1 (11.5-15.5) % Plt Count 257 (140-440) K/uL Neut % (Auto) 63.2 (42.0-72.0) % Lymph % (Auto) 22.6 (20-44) % [place] % (Auto) 9.5 (0.0-11.0) % Eos % (Auto) 3.7 (0.0-7.0) % Baso % (Auto) 0.7 (0.0-3.0) % Neut # (Auto) 6.36 (1.7-7.0) K/uL Lymph # (Auto) 2.27 (0.90-2.90) K/uL [place] # (Auto) 1.00 H (0.00-0.90) K/UL Eos # (Auto) 0.37 (0.00-0.50) K/uL Baso # (Auto) 0.07 (0.00-0.30) K/uL Abs Immat Gran (auto) 0.03 (0.00-0.30) K/uL Imm/Tot Granulo (auto) 0.3 % Sodium 140 (135-149) mmol/L Potassium 3.8 (3.6-5.1) mmol/L Chloride 104 (96-114) mmol/L Carbon Dioxide 28 (20-32) mmol/L Anion Gap 8 (7-15) mEq/L BUN 18 (7-30) mg/dL Creatinine 0.9 (0.5-1.5) mg/dL Estimated Creat Clear 88.38 Estimated GFR 98 ml/min Glucose 130 H (60-115) mg/dL Calcium 9.1 (8.4-10.6) mg/dL Magnesium 2.1 (1.5-2.6) mg/dL <Soraida De MD - Last Filed: 10/01/25 04:06> Lab Results 10/01/25 Range/Units 00:05 WBC 10.05 (4.50-11.00) K/uL RBC 5.65 (4.30-5.90) m/uL Hgb 16.1 (13.5-17.5) gm/dL Hct 47.7 (37.0-53.0) % MCV 84 (80-100) fL MCH 29 (26-34) pg MCHC 34 (32-36) gm/dL RDW Coeff of Susie 13.1 (11.5-15.5) % Plt Count 257 (140-440) K/uL Neut % (Auto) 63.2 (42.0-72.0) % Lymph % (Auto) 22.6 (20-44) % [place] % (Auto) 9.5 (0.0-11.0) % Eos % (Auto) 3.7 (0.0-7.0) % Baso % (Auto) 0.7 (0.0-3.0) % Neut # (Auto) 6.36 (1.7-7.0) K/uL Lymph # (Auto) 2.27 (0.90-2.90) K/uL [place] # (Auto) 1.00 H (0.00-0.90) K/UL Eos # (Auto) 0.37 (0.00-0.50) K/uL Baso # (Auto) 0.07 (0.00-0.30) K/uL Abs Immat Gran (auto) 0.03 (0.00-0.30) K/uL Imm/Tot Granulo (auto) 0.3 % Sodium 140 (135-149) mmol/L Potassium 3.8 (3.6-5.1) mmol/L Chloride 104 (96-114) mmol/L Carbon Dioxide 28 (20-32) mmol/L Anion Gap 8 (7-15) mEq/L BUN 18 (7-30) mg/dL Creatinine 0.9 (0.5-1.5) mg/dL Estimated Creat Clear 88.38 Estimated GFR 98 ml/min Glucose 130 H (60-115) mg/dL Calcium 9.1 (8.4-10.6) mg/dL Magnesium 2.1 (1.5-2.6) mg/dL <Edvin Thrasher MD - Last Filed: 10/13/25 20:24> ECG Data Attestation: I personally reviewed and interpreted this ECG as follows: <Soraida De MD - Last Filed: 10/01/25 04:06> Prior ECG tracings: available for review ( Comparison from July) <Soraida De MD - Last Filed: 10/01/25 04:06> Interpretation: initial EKG showing atrial fibrillation with a rate of 127. ST elevation and depression is similar to previous episodes of AFib, known prior right bundle-branch block. This EKG was from 12:01 a.m.. Second EKG is at 1:08 a.m.. This shows return to sinus rhythm. Stable right bundle-branch block from previous EKG. Rate of 86. Normal intervals and axis otherwise. <Soraida De MD - Last Filed: 10/01/25 04:06> Critical Care Time Critical Care Time Critical Care Time: Yes Attestation: The patient required my highest level preparedness to intervene emergently and I personally spent this critical care time directly and personally managing the patient. This critical care time included: Obtaining a history; Examining the patient; Pulse oximetry; Ordering and reviewing of studies; Arranging urgent treatment with development of a management plan; Evaluation of patients response to treatment; Frequent reassessment discussions with other providers. This critical care time was performed to assess and manage the high probability of imminent life-threatening deterioration that could result in multiorgan failure. It was exclusive of separate billable procedures and treating other patients and teaching time. <Edvin Thrasher MD - Last Filed: 10/13/25 20:24> Total Critical Care Time in Minutes: 50 <Edvin Thrasher MD - Last Filed: 10/13/25 20:24> Discharge Plan Discharge Clinical Impression: Atrial fibrillation <Soraida De MD - Last Filed: 10/01/25 04:06> Patient Disposition: Home, Self-Care <Soraida De MD - Last Filed: 10/01/25 04:06> Condition: Improved <Soraida De MD - Last Filed: 10/01/25 04:06> Instructions: Cardioversion (DC) <Soraida De MD - Last Filed: 10/01/25 04:06> Additional Instructions: as we discussed, the cardioversion was successful in your back in sinus rhythm. Keep taking her metoprolol and Eliquis as prescribed. It is common to have some chest discomfort for several days. It is okay to use Tylenol and/or ibuprofen for this. Keep your planned follow-up with your Cardiology and or primary care team. Return to the emergency room if you have recurrence of symptoms. <Soraida De MD - Last Filed: 10/01/25 04:06> Activity Level: No Restrictions <Soraida De MD - Last Filed: 10/01/25 04:06> No Restrictions <Edvin Thrasher MD - Last Filed: 10/13/25 20:24> Discharge Diet: Regular <Soraida De MD - Last Filed: 10/01/25 04:06> Regular <Edvin Thrasher MD - Last Filed: 10/13/25 20:24> Prescriptions: No Action metoprolol tartrate 50 mg tablet 25 mg PO BID lisinopril 40 mg tablet 40 mg PO DAILY tadalafil 5 mg tablet 5 mg PO DAILY Eliquis 5 mg tablet 5 mg PO BID Qty: 60 1RF <Soraida De MD - Last Filed: 10/01/25 04:06> Follow Up/Referrals: Glo Slaughter PA-C [Primary Care Provider, Family Practice] <Soraida De MD - Last Filed: 10/01/25 04:06> [facility] <Soraida De MD - Last Filed: 10/01/25 04:06> Procedures Procedural Sedation Pre procedure diagnosis: Atrial fibrillation <Edvin Thrasher MD - Last Filed: 10/13/25 20:24> Post procedure diagnosis: Atrial fibrillation <Edvin Thrasher MD - Last Filed: 10/13/25 20:24> Written consent by: patient <Edvin Thrasher MD - Last Filed: 10/13/25 20:24> Verification/time out: correct patient and correct procedure <Edvin Thrasher MD - Last Filed: 10/13/25 20:24> Name of person perfmorming the procedure: Soraida De <Edvin Thrasher MD - Last Filed: 10/13/25 20:24> Assistants, if any: Price <Edvin Thrasher MD - Last Filed: 10/13/25 20:24> Assistants, if any: Respiratory therapy, nursing <Edvin Thrasher MD - Last Filed: 10/13/25 20:24> Indication: other (Atrial fibrillation) <Edvin Thrasher MD - Last Filed: 10/13/25 20:24> Presedation Evaluation: Reviewed records. I have cared for this patient before. Responds well to propofol and can require jaw thrust airway repositioning. <Edvin Thrasher MD - Last Filed: 10/13/25 20:24> ASA Class: II <Edvin Thrasher MD - Last Filed: 10/13/25 20:24> Mallampati classification: III. soft palate and base of uvula visible <Edvin Thrasher MD - Last Filed: 10/13/25 20:24> Preparation: carpentry supervisor applied, pulse oximeter, capnometry used, supplemental O2 applied, reversal agents at bedside, suction/airway equipment at bedside and IV secured <Edvin Thrasher MD - Last Filed: 10/13/25 20:24> IV Propofol dose (mg): 80 <Edvin Thrasher MD - Last Filed: 10/13/25 20:24> Patient Tolerated Procedure: well <Edvin Thrasher MD - Last Filed: 10/13/25 20:24> Complications: Respiratory Depression-Repositioning Required (Delayed recovery from propofol. Required jaw thrust and bwm-bmhjo-lfxj until adequately alert; approximately 10 minutes.) <Edvin Thrasher MD - Last Filed: 10/13/25 20:24> Interventions: oxygen applied, airway repositioned (See above) and assist by BVM <Edvin Thrasher MD - Last Filed: 10/13/25 20:24> Additional Comments: Was given 1 shock at 200 joules. This did convert to normal sinus verified on EKG. Slower recovery from sedation. Assisted by respiratory therapy. <Edvin Thrasher MD - Last Filed: 10/13/25 20:24> Additional Procedures Procedure name: Moderate sedation <Edvin Thrasher MD - Last Filed: 10/13/25 20:24> Pre procedure diagnosis: atrial fibrillation with rapid ventricular response, symptomatic <Edvin Thrasher MD - Last Filed: 10/13/25 20:24> Post procedure diagnosis: atrial fibrillation with rapid ventricular response, symptomatic <Edvin Thrasher MD - Last Filed: 10/13/25 20:24> Written consent by: patient <Edvin Thrasher MD - Last Filed: 10/13/25 20:24> Site marking: not applicable <Edvin Thrasher MD - Last Filed: 10/13/25 20:24> Verification/time out: correct patient and correct procedure <Edvin Thrasher MD - Last Filed: 10/13/25 20:24> Estimated blood loss (if any): none <Edvin Thrasher MD - Last Filed: 10/13/25 20:24> Conclusion: patient tolerated procedure <Edvin Thrasher MD - Last Filed: 10/13/25 20:24> Additional comments: was asked to assist with sedation for Mr. Sol. I have cared for this patient before. History of atrial fibrillation with RVR and recurrent successful electrical cardioversion as well as ablations. Has tolerated propofol well before requiring some jaw thrust for airway management post sedation. based on review of records gave 80 mg of propofol. Resulted in excellent sedation and subsequently successful electrical cardioversion by Dr. De. did require airway repositioning with jaw thrust and brief bag-valve mask. Ultimately fully alert without any known complications. <Edvin Thrasher MD - Last Filed: 10/13/25 20:24>
[2025-10-01 00:36] LABS: Chloride* 104 mmol/L (96-114); Hematocrit* 47.7 % (37.0-53.0); Hemoglobin* 16.1 gm/dL (13.5-17.5); Immature Granulocytes Abs Auto 0.03 K/uL (0.00-0.30); Immature Granulocytes Pct Auto 0.3 %; Lymphocytes Absolute Auto 2.27 K/uL (0.90-2.90); Mean Corpuscular HGB Conc 34 gm/dL (32-36); Mean Corpuscular Hemoglobin 29 pg (26-34); Mean Corpuscular Volume 84 fL (80-100); Potassium* 3.8 mmol/L (3.6-5.1); RDW Coefficient of Variation % 13.1 % (11.5-15.5); Red Blood Count* 5.65 m/uL (4.30-5.90); Sodium* 140 mmol/L (135-149); White Blood Count* 10.05 K/uL (4.50-11.00)
[2025-10-01 00:39] LABS: Anion Gap 8 mEq/L (7-15); Blood Urea Nitrogen* 18 mg/dL (7-30); Calcium* 9.1 mg/dL (8.4-10.6); Carbon Dioxide* 28 mmol/L (20-32); Creatinine* 0.9 mg/dL (0.5-1.5); Est. Creatinine Clearance* 88.38; Estimated Glomerular Filt Rate 98 ml/min; Glucose* 130 mg/dL (60-115)
--- OUTSIDE RECORDS SUMMARY | 2025-10-01 00:42 | XMS_ITS | Clinical Summary ---
Author Organization [facility] Address [address] [place] [address] Care Team Providers Care Host/Hostess Ground Name Role Phone Glo Slaughter Primary Care Provider [phone] Allergies No known active allergies Medications MedicationSigDispense [...] 5Active Active Problems ProblemNoted DateDiagnosed DateParoxysmal atrial fmuojibnmgfu20/24/2025HTN (hypertension)4Prostate lakjaw3710/17/20239166Cjykdjooxxb31/04/2023Umbilical hernia without obstruction and without qlikizqs08/03/2023Lateral L1-2 Disk Hrytqjyp57/12/2010Spondylosis, hxhkkexmlij54/11/2010 Overview (05/13/2010): L1-2 Kidney stone10/24/2009Displacement of cervical intervertebral disc without jmpzexqkut71/11/2008OBSTRUCTIVE SLEEP APNEA Overview (08/09/2006): diagnosed 2004 but not treated at this point (08/2006) Seasonal allergic rhinitis due to pollenHYPERLIPIDEMIA MIXEDObesity, unspecified Unspecified essential hypertension Resolved Problems ProblemNoted DateDiagnosed DateResolved DateParoxysmal SVT (supraventricular tachycardia)4010/25/2024Paroxysmal atrial lsefomqduuwt03/02/2015 05/07/2023olon polyp Overview (01/17/2012): Colonoscopy 01/2012 hyperplastic polyp repeat in 10 years Impaired fasting lfllalg31TRIAL FIBRILLATION W/ RVR10/25/2024 Overview (08/09/2006): History of PAFwith multiple chemical and electrical cardioversions Hx intolerance to b-blockers d/t somnilence s/p catheter-based afib ablation 10/13/2005 w/ Dr. Armani ESTRADA discontinued 08/05/06 No recurrence afib s/p ablation until 08/08/06 pm - associated chest pressure and sob with afib and RVR Encounters DateTypeDepartmentCare LmmjNtqqabayxko55/24/2025[facility] [place] [address] [place] [address] Cardiology, Anw Jvalalzqtmh86/23/2025 3:30 PM CDTOffice Visit [place] [address] [place] [address] 07/25/2025 2:50 PM CDTOffice Visit [facility] [address] [place] [address] Glo Slaughter PA ER Follow up (Was seen for Afib-was given a blood thinner)07/25/2025Travelfrom Last 3 Months Immunizations ImmunizationAdministration DatesNext DueAMB INFLUENZA, IIV4 (AGE=>6MOS) MDV (Flu Clinic Only)07/04/2019Influenza, IIV3 (Age 6-35 mos)08/10/2017Influenza, IIV3 (Age >=3 years)07/03/2020,07/03/2018,07/03/2017,07/30/2014,07/25/2012,07/08/2011 ,07/09/2010Influenza, XTN988/07/2018Influenza, IIV4 (=>6mos) MDV1 Influenza,CCIIV4 PRESERV FREE07/02/2020,07/04/2019Td (Age >=7 Years)05/08/2004 Tdap05/05/2023,05/29/2013 Family History Medical HistoryRelationNameCommentsHypertensionFatherb 194OtherFatherback problemThyroid DiseaseFatherbenign parathyroid tumorCancerMaternal Auntliver ArthritisMotherb 194OtherMotherdiverticulitisCancer-colonPaternal Grandfather OtherSisterdepressionRelationNameStatusCommentsFatherMaternal AuntMotherPaternal GrandfatherSister Social History Tobacco UseTypesPacks/DayYears UsedDateSmoking Tobacco: NeverSmokeless Tobacco: Never Tobacco Cessation:Counseling Given: Yes Alcohol UseStandard Drinks/WeekCommentsNo0 (1 standard drink = 0.6 oz pure alcohol)PHQ-2AnswerDate RecordedPHQ-2 TOTAL [id number] Connections AnswerDate RecordedDo you often feel lonely or isolated from those around you?0 10/18/2024Financial Resource StrainAnswerDate RecordedDifficulty of Paying Living Jhdbaadx072/16/2025Difficulty of Paying Living ExpensesNot on file 10/18/2024Food [...] InformationValueDate RecordedSex Assigned at BirthNot on fileLegal TrySstw4110/16/2012 6:38 AM CSTGender IdentityNot on file Sexual GbecqjouwywJqpprxor28/30/2022 7:33 AM CDTOccupationIndustryJob Start Date Job 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 on fileNot on fileNot on file Last Filed Vital Signs Vital SignReadingTime TakenCommentsBlood Doumnnaw141/2746307/25/2025 3:21 PM CDT Ghqoy502107/25/2025 2:41 PM QKXIlqybezxgvr71.1 ??C (98.7 ??F)09/24/2023 1:34 PM CSTRespiratory Ncsw608811/25/2022 1:34 PM CSTOxygen Mcrjppwokf00%07/25/2025 2:41 PM CDTInhaled Oxygen Concentration--Rphxdu443.9 kg (315 lb)07/25/2025 2:41 PM BACDvbpho758.5 cm (5' 8.7)04/24/2025 9:33 AM CDTBody Mass [...] 750///, 06/23/2022, 06/23/2022, Additional history exists Tetanus , 05/29/2013, 05/08/2004HIV for age 15-65 Kypnjkuyq36/03/2023Hepatitis C screening for age 18-23Mgzghtrxl31/03/2023 Procedures Procedure NamePriorityDate/TimeAssociated DiagnosisCommentsEXTENDED HOLTER Ycebbdy3707/26/2025 Paroxysmal atrial fibrillation (HC) CBC WITH AUTO VRNKKUTGHHIAXkjfhhn59/23/2025 3:26 PM CDT Paroxysmal atrial fibrillation (HC) ZNXMegquny28/23/2025 3:26 PM CDT Paroxysmal atrial fibrillation (HC) COMP METABOLIC RGNYLGfizlsv48/23/2025 3:26 PM CDT Paroxysmal atrial fibrillation (HC) CBC WITH AUTO HVAZTPDSQLERXncrboh88/23/2025 3:26 PM CDT Paroxysmal atrial fibrillation (HC) LIPID PANEL W REFLEX MEASURED AHVGiaovzq88/21/2025 3:24 PM INSURANCE SPECIAL AGENT Mixed hyperlipidemia LC HIV-1/O/2, 4TH OZXOGDJFSOVmmiczh09/03/2023 3:16 PM CDT Screening for HIV (human immunodeficiency virus) LC HCV ANTIBODY RFX TO QUANT SLNCjvzhmy83/03/2023 3:16 PM CDT Need for hepatitis C screening test COLONOSCOPY ABODLPNWGEmhylrs54/21/2022 7:51 AM CDT Screening for colon cancer from Last 3 Months or Most Recently Relevant to Health Maintenance Results * EXTENDED HOLTER (07/26/2025)Specimen (Source)Anatomical Location / Laterality Collection Method / VolumeCollection TimeReceived Time07/26/2025 Narrative Favian Reyes MD - 08/13/2025 12:00 AM INSURANCE SPECIAL AGENT Agree with Findings. Please see scan document for full report. Signed By Favian Reyes MD Procedure Note Favian Reyes MD - 08/13/2025 Agree with Findings. Please see scan document for full report. Signed By Favian Reyes MD Authorizing ProviderResult TypeResult StatusJenngardenia Merlos Kopperl PACARDIAC SERVICES ORDFinal Result * CBC WITH AUTO DIFFERENTIAL (07/25/2025 3:26 PM CDT)ComponentValueRef RangeTest MethodAnalysis TimePerformed AtPathologist SignatureWHITE BLOOD CELL COUNT8.3 3.8 - 10.8 Thousand/uL07/26/2025 4:03 AM CDTQUEST DIAGNOSTICSRED BLOOD CELL COUNT5.394.20 - 5.80 Million/uL07/26/2025 4:03 AM CDT[facility] GDAVNLEEZX46.613.2 - 17.1 g/dL07/26/2025 4:03 AM CDT[facility] XBMBGMXNFE05.838.5 - 50.0 %07/26/2025 4:03 AM CDTQUEST MUWKZDANVAIPLQ11.080.0 - 100.0 fL07/26/2025 4:03 AM CDTQUEST BXYVZZYTHZJLKE71.927.0 - 33.0 pg 07/26/2025 4:03 AM CDTQUEST SFBLRMIKOKQGDFY39.132.0 - 36.0 g/dL07/26/2025 4:03 AM CDTQUEST DIAGNOSTICSComment: For adults, a slight decrease in the calculated MCHC value (in the range of 30 to 32 g/dL) is most likely not clinically significant; however, it should be interpreted with caution in correlation with other red cell parameters and the patient's clinical condition. RDW13.411.0 - 15.0 %07/26/2025 4:03 AM CDTQUEST DIAGNOSTICSPLATELET JSEHS073534 - 400 Thousand/uL07/26/2025 4:03 AM CDTQUEST XSTEOMTQWIVDSN43.17.5 - 12.5 fL 07/26/2025 4:03 AM CDTQUEST QNCYSYJRHULMIISZRJNFFD19.1%07/26/2025 4:03 AM CDT [facility] PFYFKAQIMJGYXDOJEKGSAX69.1%07/26/2025 4:03 AM CDT[facility] MONOCYTES9.1%07/26/2025 4:03 AM CDTQUEST DIAGNOSTICSEOSINOPHILS3.6%07/26/2025 4:03 AM CDTQUEST DIAGNOSTICSBASOPHILS1.1%07/26/2025 4:03 AM CDT[facility] ABSOLUTE YBCSPXSGXHG80258882 - 7800 cells/uL07/26/2025 4:03 AM CDTQUEST DIAGNOSTICSABSOLUTE AJPVKZDZODS7536540 - 3900 cells/uL07/26/2025 4:03 AM CDT [facility] DIAGNOSTICSABSOLUTE LOCJYQXCI669998 - 950 cells/uL07/26/2025 4:03 AM CDT [facility]AGNOSTICSABSOLUTE AUXGNNRPOGQ58002 - 500 cells/uL07/26/2025 4:03 AM CDT [facility]STICSABSOLUTE HHSWROZVT785 - 200 cells/uL07/26/2025 4:03 AM CDTQUEST DIAGNOSTICSSpecimen (Source)Anatomical Location / LateralityCollection Method / VolumeCollection TimeReceived TimeBloodBLOOD SPECIMEN / UnknownQuest Collect / Bzldtab3407/25/2025 3:26 PM CDT1 3:27 PM CDT Narrative Authorizing ProviderResult TypeResult StatusGlo Slaughter PAHEMATOLOGYFinal ResultPerforming OrganizationAddressty/State/ZIP CodePhone Number [facility] [address] [address], [place] [phone] * TSH (07/25/2025 3:26 PM CDT)ComponentValueRef RangeTest MethodAnalysis Time Performed AtPathologist SignatureTSH1.240.40 - 4.50 mIU/L1 6:00 AM CDTQUEST DIAGNOSTICSSpecimen (Source)Anatomical Location / Laterality Collection Method / VolumeCollection TimeReceived TimeBloodBLOOD SPECIMEN / UnknownQuest Collect / Iyunwwp2907/25/2025 3:26 PM CDT1 3:27 PM CDT Narrative Authorizing ProviderResult TypeResult StatusGlo Slaughter PACHEMISTRYFinal ResultPerforming OrganizationAddressCity/State/[facility] CodePhone Number [facility] [address] [address], [place] [phone] * COMP METABOLIC PANEL (07/25/2025 3:26 PM CDT)ComponentValueRef RangeTest MethodAnalysis TimePerformed AtPathologist XcxwblpqiZYFIYQ887463 - 146 mmol/L 07/26/2025 3:40 AM CDTQUEST DIAGNOSTICSPOTASSIUM4.03.5 - 5.3 mmol/L1 3:40 AM CDTQUEST YVIWRLBCGHGQDZQFXUZ16567 - 110 mmol/L1 3:40 AM CDT [facility]AGNOSTICSCARBON RQXLUUX8172 - 32 mmol/L1 3:40 AM CDTQUEST YCWBDSEVMUQRPFSFDX4462 - 99 mg/dL07/26/2025 3:40 AM CDT[facility] Comment: ? Fasting reference interval CALCIUM9.58.6 - 10.3 mg/dL07/26/2025 3:40 AM CDTQUEST DIAGNOSTICSCREATININE0.91 0.70 - 1.30 mg/dL07/26/2025 3:40 AM CDTQUEST DIAGNOSTICSBUN/CREATININE RATIOSEE NOTE:6 - 22 (calc)07/26/2025 3:40 AM CDTQUEST DIAGNOSTICSComment: ?? Not Reported: BUN and Creatinine are within ?? reference range. ? EGFR97> OR = 60 mL/min/1.47a56507/26/2025 3:40 AM CDTQUEST DIAGNOSTICSALBUMIN4.5 3.6 - 5.1 g/dL07/26/2025 3:40 AM CDTQUEST DIAGNOSTICSPROTEIN, TOTAL7.26.1 - 8.1 g/dL07/26/2025 3:40 AM CDTQUEST DIAGNOSTICSBILIRUBIN, TOTAL0.60.2 - 1.2 mg/dL 07/26/2025 3:40 AM CDTQUEST DIAGNOSTICSALKALINE NRLMMAPFZCQ8417 - 144 U/L 07/26/2025 3:40 AM CDTQUEST VRKXEPVWNFNODD489 - 46 U/L1 3:40 AM CDT [facility] RJTBEJGUGHEQLH3722 - 35 U/L1 3:40 AM CDTQUEST DIAGNOSTICSUREA NITROGEN (BUN)157 - 25 mg/dL07/26/2025 3:40 AM CDTQUEST DIAGNOSTICSGLOBULIN2.7 1.9 - 3.7 g/dL (calc)07/26/2025 3:40 AM CDTQUEST DIAGNOSTICSALBUMIN/GLOBULIN RATIO1.71.0 - 2.5 (calc)07/26/2025 3:40 AM CDTQUEST DIAGNOSTICSSpecimen (Source) Anatomical Location / LateralityCollection Method / VolumeCollection Time Received TimeBloodBLOOD SPECIMEN / UnknownQuest Collect / Imdukgd3607/25/2025 3:26 PM CDT1 3:27 PM CDT Narrative Authorizing ProviderResult TypeResult StatusJenngardenia Slaughter PACHEMISTRYFinal ResultPerforming OrganizationAddressCity/State/ZIP CodePhone Number [facility] [place] [address] [place] [address], * (ABNORMAL) LIPID PANEL W REFLEX MEASURED LDL (10/23/2024 3:24 PM INSURANCE SPECIAL AGENT)Component ValueRef RangeTest MethodAnalysis TimePerformed AtPathologist Signature CHOLESTEROL, XMDJX402(H)<200 mg/dLPl[facility] Loved.la [facility] CentereHDL JJQBTCEWOQC49 (L)> OR = 40 mg/dLPlains Regional Medical Center Loved.la ZzljYBTQJPHPGCCHL175(H)<150 mg/dL DiagnosiaBemidji Medical CentereComment: If a non-fasting specimen was collected, consider repeat triglyceride testing on a fasting specimen if clinically indicated. Felicity et al. J. of Clin. Lipidol. 2015;9:129-169. LDL-IRSWKIXLGTL703(H)mg/dL (calc)[facility] Loved.la [facility] CentereComment: Reference range: <100 Desirable range <100 mg/dL for primary prevention; <70 mg/dL for patients with CHD or diabetic patients with > or = 2 CHD risk factors. LDL-C is now calculated using the Adriana calculation, which is a validated novel method providing better accuracy than the Friedewald equation in the estimation of LDL-C. Willard SS et al. JAMES. 2013;310(19): 8203-6489 (http://education.TopPatch/faq/BEZ188) CHOL/HDLC RATIO5.9(H)<5.0 (calc)[facility] Medical CentereNON HDL CHOLESTEROL 177(H)<130 mg/dL (calc)[facility] CentereComment: For patients with diabetes plus 1 major ASCVD risk factor, treating to a non-HDL-C goal of <100 mg/dL (LDL-C of <70 mg/dL) is considered a therapeutic option. Specimen (Source)Anatomical Location / LateralityCollection Method / Volume Collection TimeReceived TimeBloodBLOOD SPECIMEN / Dmmxwtk4110/23/2024 3:24 PM INSURANCE SPECIAL AGENT 10/23/2024 3:24 PM INSURANCE SPECIAL AGENT Narrative Authorizing ProviderResult TypeResult StatusJenngardenia Slaughter PACHEMISTRYFinal ResultPerforming OrganizationAddressCity/State/ZIP CodePhone Number [facility] [address] [place] [address], [place]100[facility] [address] [place] [address] * LC HCV ANTIBODY RFX TO QUANT PCR (05/05/2023 3:16 PM CDT)ComponentValueRef RangeTest MethodAnalysis TimePerformed AtPathologist SignatureHCV AbNon ReactiveNon Wklyangq52/06/2023 7:07 AM CDTLPEMBINA [facility] ([facility])Specimen (Source)Anatomical Location / Laterality Collection Method / VolumeCollection TimeReceived TimeBloodBLOOD SPECIMEN / UnknownVenipuncture / Voamunw7005/05/2023 3:16 PM CDT05/05/2023 3:17 PM CDT Narrative [facility] ([facility]) - 05/08/2023 7:07 AM CDT Performed at: [address] [place] [address] ??[phone] Open Winder: Will Bautista MD, Phone: ??[phone] Authorizing ProviderResult TypeResult StatusJenngardenia Slaughter PALABORATORYFinal ResultPerforming OrganizationAddressCity/State/ZIP CodePhone Number [facility] ([facility]) [address] [place] [address] * LC HIV-1/O/2, 4TH GENERATION (05/05/2023 3:16 PM CDT)ComponentValueRef Range Test MethodAnalysis TimePerformed AtPathologist SignatureHIV Scr 4th GenNon ReactiveNon Duwnztxr56/06/2023 7:[address] [facility] (CET)Comment: HIV Negative HIV-1/HIV-2 antibodies and HIV-1 p24 antigen were NOT detected. There is no laboratory evidence of HIV infection. Specimen (Source)Anatomical Location / LateralityCollection Method / Volume Collection TimeReceived TimeBloodBLOOD SPECIMEN / UnknownVenipuncture / Unknown 05/05/2023 3:16 PM CDT05/05/2023 3:17 PM CDT Narrative [facility] ([facility]) - 05/08/2023 7:07 AM CDT Performed at: [address] [place] [address] ??[phone] Open Winder: Will Bautista MD, Phone: ??[phone] Authorizing ProviderResult TypeResult StatusJenngardenia Slaughter PALABORATORYFinal ResultPerforming OrganizationAddressCity/State/ZIP CodePhone Number [facility] ([facility]) [address] [place] [address], * COLONOSCOPY (06/23/2022 7:37 AM CDT)Specimen (Source)Anatomical [...] 7:37 AM Procedure Code(s): --- Professional --- 01286, Colonoscopy, flexible; diagnostic, including collection of specimen(s) bybrushing or washing, when performed (separateprocedure) Diagnosis Code(s): --- Professional --- Z12.11, Encounter for screening formalignant neoplasm of colon K57.30, Diverticulosis of large intestine without perforation or abscess withoutbleeding CPT copyright 2020 [employer]. All rights reserved. The codes documented in this report are preliminary and upon sander portable machine reviewmay be revised to meet current compliance requirements. Scope In: 8:35:54 AM Scope Withdrawal Time 0 hours 7 minutes 43 seconds Scope Out: 8:48:27 AM Authorizing ProviderResult TypeResult StatusMarglenny Matos MDPROCEDURE ORD Final Result from Last 3 Months or Most Recently Relevant to Health Maintenance Insurance Advance Directives TypeDate RecordedPatient RepresentativeExplanationHealthcare Huyhinmhh80/31/2023 08/02/2023 * Full Code (Latest Code Status on File) Date ActivatedDate VwoiommyfvhYsmgquym70/15/2023 8:03 AM09/17/2023 3:45 PM QuestionAnswerCommentsCode Status Discussion:* Unable to Assess Preferences, Provider to review later * Full Code Date ActivatedDate InactivatedComments06/21/2015 11:28 PM06/22/2015 2:00 PM * Full Code Date ActivatedDate InactivatedComments05/28/2008 11:34 AM05/29/2008 1:24 PM * Full Code Date ActivatedDate OeclnfmlovkZymowcvp64/7/2006 4:19 PM08/10/2006 8:33 PM * Full Code Date ActivatedDate NvqmqhbzlpeBiyjpkbh37/7/2006 3:14 PM08/09/2006 4:19 PM Care Teams Team MemberRelationshipSpecialtyStart DateEnd Date Glo Slaughter PA [address] [place] [address] PCP - GeneralPhysician Assistant05/07/23
--- OUTSIDE RECORDS SUMMARY | 2025-10-01 00:42 | XMS_ITS | CCD ---
Author Name Interface, [id number] lity Address [address] [place] [address] [address] [place] [address] [facility] Address [facility] [address] [place] [address] Care Team Providers Care Furnace Caretaker Name Role Phone Collins PALOMO, Abner Alford Unavailable Unavailable Reason for Visit NURSE VISIT 15 MIN Social History Date Name Value 06/28/2023 Sex Male
--- OUTSIDE RECORDS SUMMARY | 2025-10-01 00:42 | XMS_ITS | CCD ---
Author Name Interface, [id number] lity Address [address] [place] [address] [address] [place] [address] [facility] Address [facility] [address] [place] [address] Care Team Providers Care Hydraulic Tester Name Role Phone Collins PALOMO, Abner Alford Unavailable Unavailable Reason for Visit NURSE VISIT 15 MIN Social History Date Name Value 06/28/2023 Sex Male
[2025-10-01 00:45] LABS: Slide Review Reflex No
[2025-10-01] MEDS: 0.9 % SODIUM CHLORIDE 500 ML 500 ML IV (01:11)
[2025-10-01] MEDS: PROPOFOL 10 MG/ML INJ 100 MG IVP (01:12)
--- NOTE | 2025-10-01 01:36 | RESP.RT ---
Patient cardioverted, bag/mask/oxygen bleed in ventilation for 8-10 minutes post cardioversion. HR 80/minute, SaO2 90-94%, RR 12-16/minute, EtCO2 38 torr. Patient awake, alert, return to [place].
[2025-10-01] MEDS: ACETAMINOPHEN 500 MG TABLET 1000 MG PO (03:27)
== END 2025-10-01 03:58 | disposition home or self-care (01) ==
PROVIDERS: Emergency Provider Family Medicine; PCP Physician Assistant
DX: I48.91 Unspecified atrial fibrillation (principal); I10 Essential (primary) hypertension; Z79.01 Long term (current) use of anticoagulants
CPT/HCPCS: 36415; 80048; 83735; 85025; 92960; 93005; 96360; 99156; 99284; 99291; A9270; J2704; J7030